=== PATIENT | female | born 1940 | race Caucasian/White ===

== ENCOUNTER 2023-05-21 13:49 | Emergency (ER) | payer OTHER, SELFPAY ==
--- NOTE | ~2023-05-21 | CT_ITS ---
EXAMINATION: CT ABDOMEN AND PELVIS WITHOUT CONTRAST CLINICAL INFORMATION: Flank pain and hematuria COMPARISON: CT abdomen pelvis 10/23/2012-report only TECHNIQUE: Multidetector volumetric imaging was performed from the superior aspect of the liver through the pubic symphysis. Sagittal and coronal reformatted images were obtained on the technologist's workstation. This CT examination was performed using dose optimization techniques as appropriate, variously including the following: *Automated exposure control *Adjustment of mA and/or kV according to patient size (this includes techniques or standardized protocols for targeted exams where dose is matched to indication/reason for exam; i.e. extremities or head) *Use of iterative reconstruction technique DLP: 330 mGy-cm FINDINGS: LUNG BASES: There is mild elevation of the left hemidiaphragm with a small Bochdalek hernia. Bibasilar atelectasis is present. No pleural effusions, consolidations or suspicious lung masses. A bipolar pacemaker is present. Heart is enlarged. LIVER, GALLBLADDER, AND BILIARY TREE: The liver is enlarged measuring 20.5 cm in greatest length. Attenuation is normal. No focal hepatic lesion or biliary ductal dilatation is present. The gallbladder is unremarkable with no evidence of radiopaque gallstones, gallbladder wall thickening, or obvious pericholecystic inflammatory changes. PANCREAS: Not optimally assessed because of lack of IV contrast. There are some calcifications in the region of the head of the pancreas which are probably secondary to old pancreatitis. SPLEEN: Unremarkable. ADRENAL GLANDS: Unremarkable. KIDNEYS AND URETERS: The right kidney is mildly atrophic compared to the left. 2 stones are present in right lower pole calyx the largest measuring 4 mm. No right-sided hydronephrosis is present. Left side benign Bosniak class I and class II renal cysts are noted which require no additional imaging or follow-up. No suspicious solid renal masses are seen. BLADDER: There is moderate symmetric bladder wall thickening. GASTROINTESTINAL TRACT: The small and large bowel are unremarkable aside from the presence of colonic diverticula without diverticulitis. The appendix is unremarkable. ABDOMINAL WALL: No significant hernia is appreciated. LYMPH NODES: Normal. VASCULAR: There is an aortobiiliac stent graft. Patency cannot be established as the study was without IV contrast. Severe atherosclerotic disease is present on the left with presumed external iliac occlusion and SFA occlusion. PELVIC VISCERA: Unremarkable. OSSEOUS STRUCTURES: There is scoliosis present with mild degenerative changes in the spine. CT/CT abdomen pelvis wo IV con IMPRESSION: 1. The right kidney is mildly atrophic and there are nonobstructing calculi present.. 2. 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 Fleischner guidelines were followed.
[2023-05-21 13:54] VITALS: BP 172/70; BP 180/92; PULSE 60; RESP 16; TEMP 37.1; O2SAT 100; O2SAT 93; BMI 18.2
--- NOTE | 2023-05-21 13:54 | ED.GENADULT ---
HPI - General Adult General Chief complaint: Urogenital-Female Stated complaint: FLANK PAIN DIFFICULTY URINATING Time Seen by Provider: 05/21/23 16:32 Source: patient Mode of arrival: EMS Limitations: no limitations History of Present Illness HPI narrative: 83 y/o female with history of HTN presents today for the evaluation of right flank pain for 4 days and difficulty urinating for 2 days with bloody discharge this morning. She reports that she recently fell outside on her lawn on , denies dizziness or syncope, no head strike or loss of consciousness. She fell on her right side and was unable to stand up so she crawled to her neighbors' houses and knocked until someone answered. R flank pain has been worsening and shoots down her bilateral lower extremities. Pain migrates to her buttocks, feels within her rectum. She reports difficulty urinating and passing bowel movements for two days. States that it is hard to pass, last urinated at 11am today. This morning when she woke up, her underwear was covered in blood, she is unable to identify if the blood is from urethra, vagina, or rectum. Call her primary care this morning, who instructed her to go to the ER. MD complaint: flank pain, difficultty urinating Onset (ago): day(s) Radiation: extremity (bilateral lower extremities) and flank Severity: moderate Severity scale (1-10): 4 Quality: aching Pain Consistency: intermittent Relieving factors: rest Exacerbating factors: movement Associated symptoms: denies other symptoms Related Data Previous Rx's ?Medication ?Instructions ?Recorded amlodipine 5 mg tablet (Norvasc) 5 mg PO DAILY #30 tabs 05/21/23 cefuroxime axetil 500 mg tablet 500 mg PO BID 10 days #20 tabs 05/21/23 Allergies Allergy/AdvReac Type Severity Reaction Status Date / Time No Known Allergies Allergy Verified 05/21/23 14:01 Review of Systems Review of Systems: Yes all other systems are reviewed and are negative PMFSH Social History Social History Smoked in Last 30 Days: Yes Use of substances other than those prescribed or required for medical reasons: No Advance Directives: No Advance Directives Information Provided: No Physical Exam ED Vital Signs: Vital Signs - 24 hr 05/21/23 13:54 05/21/23 15:21 Temperature 98.7 F Pulse Rate 60 62 Respiratory Rate 16 14 Blood Pressure 172/70 H 205/69 H Pulse Oximetry 93 93 Oxygen Delivery Method Room Air Room Air BMI result Body Mass Index 18.2 Appearance: Alert. Oriented X3. No acute distress. Head: normocephalic, atraumatic. Eyes: Pupils equal, round and reactive to light. ENT: Pharynx normal. No tonsillar swelling or exudate. Neck: Normal inspection. Neck supple. CVS: Normal heart rate and rhythm. Pulses normal. Respiratory: Coarse, wet cough. Coarse rhonchi auscultated throughout Abdomen: Soft and nontender. : CVA tenderness on right flank Rectal: small 1cm external hemorrhoid noted at 6pm. Larger internal hemorrhoid noted at 1pm Skin: Skin warm and dry. Normal skin color. Normal skin turgor. No rashes. Dried blood noted on right lower extremity. Extremities: No lower extremity edema. No joint swelling. Neuro/psych: Oriented X 3. Nonfocal Course Reevaluation(s) Reevaluation #1: CT/CT abdomen pelvis wo IV con IMPRESSION: 1. The right kidney is mildly atrophic and there are nonobstructing calculi present.. 2. 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 Reviewed these incidental findings with patient, consulted with vascular Dr. Alvarez who recommends outpatient follow-up with her vascular doctor, she is currently anticoagulated on Pradaxa. On exam does not have evidence of acute ischemic limb; she endorses no pain, paralysis, paresthesias, on exam has no pallor or absence of pulses. Her prior vascular surgeon is Dr. Naomi Shepard in [place]. Stable for discharge home Time: 17:45 Medications Administered Discontinued Medications Generic Name Dose Route Start Last Admin Trade Name Freq PRN Reason Stop Dose Admin Amlodipine Besylate 5 mg 05/21/23 15:45 05/21/23 15:59 Amlodipine Besylate 5 Mg Tablet PO 05/21/23 15:46 5 mg ONCE ONE Administration Protocol Ceftriaxone Sodium 1 gm/ 50 mls @ 100 mls/hr 05/21/23 14:57 05/21/23 16:31 Sodium Chloride IV 05/21/23 15:26 Infused ONCE ONE Infusion Medical Decision Making Medical Decision Making [facility] Narrative: 83 y/o female with history of COPD and HTN presents today for evaluation of right flank pain for 4 days and difficulty urinating for 2 days. She reports that when she woke up this morning she had blood between her legs and was unable to tell where it came from. Will obtain UA to evaluate for infection. UA is positive for proteinuria, hematuria, and WBC w/ leukocyte esterase. Will treatment with ceftriaxone. Both internal and external hemorrhoids are noted on digital rectal exam. No visible blood noted on rectal exam. Sent stool guaic for occult blood for further evaluation. Positive for occult blood in stool. Will order CT abdomen/pelvis considering blood in urine and rectum. Concerned for possible lower GI bleed. Patient states that she receives her medications from [email or web address] in [place]. She is unable to recall what medications she takes and what types of medications they are. Called pharmacy and spoke with pharmacist Ronal, who reports that [facility] recently filled metoprolol tartrate 50 mg BID, lorazepam 1gm QD prn, rosouvastatin 20 mg at night, aspirin 81 mg QD. No longer on blood thinners. Pharmacy reports last filled pradaxa on 03/01 for 30 day supply and amlodipine on 04/01 for 30 days. Blood pressure is persistently elevated at 209/65, 204/55. Will order one time dose of amlodipine 5mg and monitor for improvement. Differential Diagnosis Differential Diagnoses: The differential diagnosis associated with the presentation includes lower GI bleed, diverticulitis, UTI, pyelonephritis, lumbar muscular sprain, nephrolithiasis Admission/Observation Consideration of admission/observation: Escalation of care including admission/observation considered Lab Data [facility] Lab Attestation statement: I reviewed the patient's lab results. Urine is positive for RBC, WBC, protein, and leukocyte esterase. Stool is positive for occult blood. 05/21/23 14:38 05/21/23 14:38 Labs: Lab Results 05/21/23 05/21/23 05/21/23 Range/Units 14:10 14:32 14:38 WBC 7.2 (4.8-10.8) X10*3/uL RBC 3.89 L (4.20-5.50) X10*6/uL Hgb 11.4 L (12.0-16.0) g/dl Hct 36.3 L (37.0-47.0) % MCV 93.3 (80.0-98.0) fL MCH 29.3 (27.0-33.0) pg MCHC 31.4 (31.0-35.0) g/dl RDW 14.1 (11.0-16.0) % Plt Count 183 (160-400) X10*3/uL MPV 9.6 (9.4-12.3) fL Immature Gran % (Auto) 0.4 (0.0-0.4) % Neut % (Auto) 85.9 H (45-73) % Lymph % (Auto) 7.6 L (20-40) % Darke % (Auto) 5.9 (2-11) % Eos % (Auto) 0.1 (0-4) % Baso % (Auto) 0.1 (0-2) % Lymph # (Auto) 0.6 L (1.2-4.9) X10*3/uL Darke # (Auto) 0.4 (0.1-1.2) X10*3/uL Eos # (Auto) 0.0 (0.0-0.4) X10*3/uL Baso # (Auto) 0.0 (0.0-0.2) X10*3/uL Abs Immat Gran (auto) 0.03 (0.00-0.03) X10*3/uL Absolute Neuts (auto) 6.2 (2.0-8.3) x10*3/uL Absolute Nucleated RBC 0.000 (0.0-0.012) X10*3/uL Nucleated RBC % (auto) 0.0 (0.0-0.2) /100WBC Sodium 138 (135-145) mmol/L Potassium 4.4 (3.3-5.1) mmol/L Chloride 104 (96-108) mmol/L Carbon Dioxide 26 (22-29) mmol/L Anion Gap 12 (12-20) BUN 15 (9-16) mg/dL Creatinine 1.02 (0.5-1.4) mg/dL Estim Creat Clear Calc 34.1 Estimated GFR 52 Random Glucose 102 (60-115) mg/dL Calcium 9.4 (8.4-10.2) mg/dL Magnesium 2.1 (1.6-2.6) mg/dL Total Bilirubin 0.5 (0.0-1.0) mg/dL Direct Bilirubin 0.2 (0.0-0.5) mg/dL AST 20 (5-31) U/L ALT 11 (0-31) U/L Alkaline Phosphatase 87 (39-117) U/L Total Protein 6.8 (6.5-8.0) g/dL Albumin 3.5 (3.5-5.0) g/dL Urine Color RED Urine Appearance Turbid Urine pH 6.0 (5.0-9.0) Ur Specific [place] 1.025 (1.005-1.025) Urine Protein 300 (3+) H (Neg-Trace) mg/dL Urine Glucose (UA) Negative (Negative) mg/dL Urine Ketones Trace (Negative) mg/dL Urine Blood Large (3+) H (Negative) Urine Nitrite Negative (Negative) Ur Leukocyte Esterase Small (1+) H (Negative) Urine RBC >20 H (0-2) /HPF Urine WBC >50 H (0-5) /HPF Ur Squamous Epith Cells 0-2 (0-2) /HPF Urine Bacteria 1+ (None Seen) Hyaline Casts 0-2 (0-2) /LPF Stool Occult Blood POSITIVE (NEGATIVE) Independent Interpretation I performed an independent interpretation of an: CT Scan Radiology Impression Discussion of test interpretation with radiology: I have reviewed the radiologist's reading. Independent Historian Clinical information obtained from an independent historian. History obtained from or confirmed by: EMS Prescription Management I considered prescription management with: Pain Medication and Antibiotic Chronic Conditions Patient?s care impacted by: Hypertension Social Determinants Patient?s care significantly limited by Social Determinants of Health including: Other Social Determinant of Health Critical Care Time Critical Care Time Critical Care Time: Yes Total Critical Care Time: 42 Attestation: I have personally provided critical care time exclusive of time spent on separately billable procedures. Time includes review of lab data, radiology results, bedside re-evaluations and monitoring for potential decompensation. Intervention performed as documented. Discharge Plan Discharge Clinical Impression: Urinary tract infection Qualifiers: Urinary tract infection type: acute cystitis Hematuria presence: with hematuria Qualified Code(s): N30.01 - Acute cystitis with hematuria Patient Disposition: Home, Self-Care Instructions: Urinary Tract Infection in Older Adults (ED) Additional Instructions: Your urine test today showed infection. Your given 1st dose of IV antibiotics today in the emergency department. You are being sent home with oral antibiotics, next dose is due tomorrow morning. Complete the entire course and do not miss any doses. Drink plenty of fluids. If you develop new or worsening symptoms call 911 or come back to the ER for further evaluation. There was an incidental finding on your CT scans a concerning for possible blockages in arteries of your left leg; your left external iliac artery in your left superficial femoral artery. It is important that you continue taking your medications including her Pradaxa as prescribed. If you develop symptoms that include but are not limited to left leg pain, discoloration of the skin, numbness/tingling, cold sensation, inability to walk on the leg then you should be re-evaluated. You may follow-up in regards to this with your previous vascular surgeon; Dy. Naomi Shepard [address] [place] [address] [address] [place] Prescriptions: New cefuroxime axetil 500 mg tablet 500 mg PO BID 10 Days Qty: 20 0RF amlodipine [Norvasc] 5 mg tablet 5 mg PO DAILY Qty: 30 0RF Referrals: [facility] [Provider Group] [facility] [Provider Group] [facility] [Provider Group] Print Language: Nepali
[2023-05-21 14:28] LABS: Appearance Urine Turbid; Color Urine RED; Glucose Urine UA Negative (Negative); Leukocyte Esterase Urine Small (1+) (Negative); Nitrite Urine Negative (Negative); Specific Gravity - Urine 1.025 (1.005-1.025); UMIC TRIGGER UACC YES; Urine Blood Large (3+) (Negative); Urine Ketones Trace mg/dL (Negative); Urine Protein 300 (3+) mg/dL (Neg-Trace)
[2023-05-21 14:38] LABS: OBS Int Ctl Valid YES; OBS1 POSITIVE (NEGATIVE)
[2023-05-21 14:42] LABS: MANUAL DIFF FLAG NO
[2023-05-21 14:44] LABS: Bacteria Urine 1+ (None Seen); Hyaline Casts Urine 0-2 /LPF (0-2); RBC Urine >20 /HPF (0-2); Squamous Epithelial Cell Urine 0-2 /HPF (0-2); UACC Culture Trigger YES; WBC Urine >50 /HPF (0-5)
[2023-05-21 14:45] LABS: Basophils Percent Auto 0.1 % (0-2); Eosinophils Percent Auto 0.1 % (0-4); Hematocrit 36.3 % (37.0-47.0); Hemoglobin 11.4 g/dl (12.0-16.0); Imm Gran Abs Auto 0.03 X10*3/uL (0.00-0.03); Imm Gran Pct Auto 0.4 % (0.0-0.4); Lymphocytes Absolute Auto 0.6 X10*3/uL (1.2-4.9); Lymphocytes Percent Auto 7.6 % (20-40); Mean Corpuscular HGB Conc 31.4 g/dl (31.0-35.0); Mean Corpuscular Hemoglobin 29.3 pg (27.0-33.0); Mean Corpuscular Volume 93.3 fL (80.0-98.0); Mean Platelet Volume 9.6 fL (9.4-12.3); Monocytes Absolute Auto 0.4 X10*3/uL (0.1-1.2); Monocytes Percent Auto 5.9 % (2-11); Neutrophils Absolute Auto 6.2 x10*3/uL (2.0-8.3); Neutrophils Percent Auto 85.9 % (45-73); Platelet Count 183 X10*3/uL (160-400); Red Blood Count 3.89 X10*6/uL (4.20-5.50); Red Cell Distribution Width 14.1 % (11.0-16.0); White Blood Count 7.2 X10*3/uL (4.8-10.8)
[2023-05-21 15:06] LABS: Alanine Aminotransferase 11 U/L (0-31); Albumin Level 3.5 g/dL (3.5-5.0); Alkaline Phosphatase 87 U/L (39-117); Anion Gap 12 (12-20); Aspartate Amino Transferase 20 U/L (5-31); Bilirubin Direct 0.2 mg/dL (0.0-0.5); Bilirubin Total 0.5 mg/dL (0.0-1.0); Blood Urea Nitrogen 15 mg/dL (9-16); Calcium 9.4 mg/dL (8.4-10.2); Carbon Dioxide 26 mmol/L (22-29); Chloride 104 mmol/L (96-108); Creatinine Clr Calc Pharmacy 34.1; Estimated Glomerular Filt Rate 52; Glucose Random 102 mg/dL (60-115); Magnesium 2.1 mg/dL (1.6-2.6); Potassium 4.4 mmol/L (3.3-5.1); Sodium 138 mmol/L (135-145); Total Protein 6.8 g/dL (6.5-8.0)
[2023-05-21 15:21] VITALS: BP 205/69; PULSE 62; RESP 14; O2SAT 93
[2023-05-21] MEDS: cefTRIAXone sodium 1 GM in 0.9 % Sodium Chloride 50 ML IV (15:39)
[2023-05-21] MEDS: amLODIPine Besylate 5 MG TABLET PO (15:59)
[2023-05-21 17:44] VITALS: BP 151/71; PULSE 63; O2SAT 92
--- NOTE | 2023-05-21 18:17 | PC.NURSE ---
spoke with pt friend, Yandy [phone] [address] she will come tow picker pt in about 30-40 MIN
[2023-05-21 18:43] VITALS: BP 188/99; PULSE 60; RESP 16; TEMP 36.7; O2SAT 92
== END 2023-05-21 18:54 | disposition home or self-care (01) ==
PROVIDERS: Physician Assistant; Emergency Provider Emergency Medicine
DX: N30.01 Acute cystitis with hematuria (principal); K64.8 Other hemorrhoids; K64.4 Residual hemorrhoidal skin tags; I10 Essential (primary) hypertension; J44.9 Chronic obstructive pulmonary disease, unspecified; Z79.82 Long term (current) use of aspirin; Z79.899 Other long term (current) drug therapy
CPT/HCPCS: 36415; 74176; 80048; 80076; 81001; 82272; 83735; 85025; 87086; 87088; 87186; 96365; 99284; J0696

== ENCOUNTER 2023-07-03 10:05 | Inpatient (IN) | payer MEDICARE, SELFPAY ==
[2023-07-03] VITALS (12 sets, daily range): BP systolic 105–201; BP diastolic 50–82; PULSE 68–97; RESP 15–23; TEMP 36.5–37.1; O2SAT 78–97
--- NOTE | ~2023-07-03 | XR_ITS ---
EXAMINATION: XR CHEST CLINICAL INFORMATION: ET tube and orogastric tube placement COMPARISON: CT chest 07/04/2023 at 2:19 AM TECHNIQUE: Frontal view of the chest was obtained. FINDINGS: NG tube has its tip in the stomach. Endotracheal 2 isn't the difficult to see but is probably well above the mindi. Left chest wall dual-lead pacemaker present with tip in good position. Heart size within normal limits. Small left effusion. Increased bronchial thickening is seen left basilar atelectasis is present. XR/XR chest 1V IMPRESSION: Endotracheal tube is difficult to see but is probably well above the mindi. A repeat chest radiograph slightly obliqued may be of value. NG tube has its tip in the stomach.
--- NOTE | ~2023-07-03 | XR_ITS ---
EXAMINATION: XR CHEST CLINICAL INFORMATION: Ongoing cough COMPARISON: None available. TECHNIQUE: Frontal view of the chest was obtained. FINDINGS: The lungs do appear to be hyperaerated with mild bilateral fibrotic changes noted but no acute consolidations. Heart and pulmonary vessels are normal. No congestive change. A left-sided pacer noted with distal tips directed towards right atrium and right ventricular apex. There is degenerative change in both shoulder joints. XR/XR chest 1V IMPRESSION: Chronic changes noted. No active disease.
--- NOTE | ~2023-07-03 | CT_ITS ---
EXAMINATION: CT ANGIOGRAM OF THE CHEST WITH AND WITHOUT CONTRAST (CT PULMONARY ANGIOGRAM FOR PE) CLINICAL INFORMATION: Reason for Exam Acute hypoxia COMPARISON: None available. TECHNIQUE: Prior to contrast administration, noncontrast localization images were obtained. Subsequently, multidetector volumetric imaging was performed from the thoracic inlet to below the diaphragms following the administration of 65 mL Omnipaque 350 intravenous contrast. No contrast reaction reported Sagittal, coronal, and MIP oblique sagittal reformatted images were obtained on the CT workstation, uploaded to PACS, and reviewed. This CT examination was performed using dose optimization techniques as appropriate, variously including the following: *Automated exposure control *Adjustment of mA and/or kV according to patient size (this includes techniques or standardized protocols for targeted exams where dose is matched to indication/reason for exam; i.e. extremities or head) *Use of iterative reconstruction technique Total exam dose-length product 247 mGy-cm FINDINGS: QUALITY OF STUDY/CONTRAST BOLUS: Satisfactory. PULMONARY ARTERIES: No filling defects are seen in the main, lobar, or segmental pulmonary arteries to suggest the presence of pulmonary emboli. Assessment of the subsegmental vasculature is limited in some regions due to respiratory motion artifact. THORACIC AORTA: Ascending aorta measures approximately 3.8 cm in diameter. There is atherosclerotic calcification along the aorta. LUNG: Endotracheal tube tip approximately 2 cm above the mindi. Bronchial wall thickening is noted bilaterally. There is biapical scarring. Moderate to severe upper lobe predominant emphysema. There is peribronchial opacity in the medial left lower lobe. Dependent atelectasis in the bilateral lower lobes. Left upper lobe nodule measures approximately 5 x 3 mm on image 202/571. There is a region of somewhat clustered ill-defined nodularity in the right upper lobe such as seen on image 217/571, overall more suggestive of a mild infectious/inflammatory etiology. PLEURA: No pneumothorax. Trace left pleural effusion. MEDIASTINUM: Peripherally calcified right thyroid nodule. No appreciable mediastinal lymphadenopathy. Cardiomegaly without pericardial effusion. CORONARY ARTERY CALCIFICATION: Present CHEST WALL/AXILLA: No lymphadenopathy is seen. Left-sided pacemaker is present with leads extending to the right atrium and right ventricle. OSSEOUS STRUCTURES: Multilevel endplate osteophytes in the spine. UPPER ABDOMEN: Partially visualized aortic stent graft. No reflux of contrast into the hepatic veins to suggest elevated right heart pressures. CT/CT angio chest PE protocol IMPRESSION: 1. No pulmonary embolus identified. 2. Peribronchial opacity in the medial left lower lobe, suspicious for pneumonia in the proper clinical setting. 3. Moderate to severe upper lobe predominant emphysema. 4. Bronchial wall thickening, which may reflect acute or chronic bronchitis. 5. Trace left pleural effusion. 6. Left upper lobe 5 mm lung nodule, nonspecific. See follow-up recommendations below. 7. Region of somewhat clustered of ill-defined nodularity in the in the right upper lobe such overall more suggestive of a mild infectious/inflammatory etiology. According to the UPDATED 2017 Fleischner Society recommendations, the advised follow-up imaging for solid nodules < 6 mm is: LOW RISK PATIENT: No routine follow-up. HIGH RISK PATIENT: Optional CT at 12 months. VTE: negative
--- NOTE | 2023-07-03 10:20 | ECG_ITS ---
Test Reason : SOB Blood Pressure : / mmHG Vent. Rate : 077 BPM Atrial Rate : 000 BPM P-R Int : 000 ms QRS Dur : 084 ms QT Int : 382 ms P-R-T Axes : 000 030 070 degrees QTc Int : 432 ms Atrial fibrillation with a competing junctional pacemaker Septal infarct , age undetermined Abnormal ECG No previous ECGs available Referred By: Demetria Bray Electronically Signed By:ESTEFANIA LOPEZ
--- NOTE | 2023-07-03 10:24 | ED_ITS ---
HPI - SOB/Dyspnea General Chief Complaint: Dyspnea Stated Complaint: LOW O2 SATS, 96% ON 4L,HX COPD PER EMS Time Seen by Provider: 07/03/23 10:07 Source: patient, EMS and old records reviewed Mode of arrival: EMS Limitations: other (poor historian) History of Present Illness ED Provider: ZORA HPI Narrative: 83 yo female with PMH of HTN, COPD not on home O2 still smoking, takes pradaxa but I am not sure why - records from [facility] requested she notes she was at [facility] and sent to rehab just came home 2 weeks ago after R hip fracture. 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 She notes she has a cough and sputum production x 2 days it is white in nature. VNA came today and notes sats in the 80s. The patient denies falls. She notes poor appetite. She reports when she was in rehab she had pneumonia but isn't sure of antibiotic. In our room on arrival to ED she was 78% on RA. review of [facility] records - admit 06/06 to 06/18 R subcapital femur fx s/p ORIF complicated recovery hypoxia and pneumonia was treated with augmentin and doxy. has hx of afib that is why she is on pradaxa. It appears her memory issues are not new. MD elicited complaint: shortness of breath Pertinent past history: COPD Onset (ago): day(s) (2) Context: recent illness Timing: intermittent Severity: mild Exacerbating factors: coughing Relieving factors: rest Known history of: COPD Associated symptoms: cough and sputum production Treatment prior to arrival: oxygen Related Data Home Medications ?Medication ?Instructions ?Recorded ?Confirmed aspirin 81 mg chewable tablet 1 tab PO DAILY 07/03/23 dabigatran etexilate 150 mg capsule 150 mg PO BID 07/03/23 lorazepam 1 mg tablet 1 mg PO DAILY PRN Anxiety 07/03/23 metoprolol tartrate 50 mg tablet 50 mg PO BID 07/03/23 rosuvastatin 20 mg tablet 20 mg PO DAILY 07/03/23 Previous Rx's ?Medication ?Instructions ?Recorded amlodipine 5 mg tablet (Norvasc) 5 mg PO DAILY #30 tabs 05/21/23 Allergies Allergy/AdvReac Type Severity Reaction Status Date / Time No Known Allergies Allergy Verified 07/03/23 10:26 Review of Systems 2 Review of Systems: Constitutional : No Fever, No Chills ENT/Mouth : No sore throat, No Rhinorrhea, No Swallowing Difficulty Eyes: No Eye Pain, No Swelling, No Redness Cardiovascular : No Chest Pain, positive SOB, No Orthopnea, positive Edema Respiratory : pos Cough, pos Sputum, No Wheezing, positive dyspnea Gastrointestinal : No Nausea, No Vomiting, No Diarrhea, No abdominal Pain, No Hematochezia, No Melena Genitourinary : No Dysuria, No Urinary Frequency, No Hematuria Musculoskeletal : No joint pain, No Myalgias Skin : No Skin Lesions, No rash Neuro : pos Weakness, No Numbness, No Dizziness, No Headache Psych : No Anxiety/Panic, No Depression All other systems reviewed and are negative [facility] Past Medical History Attestation statement: The following information was validated with the patient. Source: old records reviewed Medical History Femur fracture Afib Chronic anticoagulation HTN (hypertension) COPD (chronic obstructive pulmonary disease) Surgical History S/P ORIF (open reduction internal fixation) fracture Social History Social History Alcohol intake: current Alcohol intake frequency: 0-2 drinks per day Patient Tobacco Use Status: Current everyday Tobacco user Smoked in Last 30 Days: Yes Use of substances other than those prescribed or required for medical reasons: No Advance Directives: Yes Advance Directives Information Provided: Yes Advance Directives on File: No Do you have a plan to hurt others: No Plan Physical Exam 2 Vital Signs: Vital Signs: Last Vital Signs Temp 98.3 F 07/03/23 13:24 Pulse 92 07/03/23 13:24 Resp 19 07/03/23 13:24 BP 169/69 H 07/03/23 13:24 Pulse Ox 97 07/03/23 13:24 O2 Del Method Nasal Cannula 07/03/23 13:24 O2 Flow Rate 4 07/03/23 13:24 Oxygen Flow Rate 4 07/03/23 10:22 BMI result Body Mass Index 20.0 Appearance: Alert. Oriented X2 (confused on time). No acute distress. Eyes: Pupils equal, round and reactive to light. ENT: Pharynx normal. Neck: Normal inspection. Neck supple. CVS: irregular heart rate and rhythm. Pulses normal. Respiratory: No respiratory distress. Breath sounds very diminished with coarse cough Abdomen: Soft and nontender. Skin: Skin warm and dry. Normal skin color. Normal skin turgor. Extremities: No lower extremity edema. R upper lateral thigh well healed incision steri strips in place Neuro: Oriented X 2. No motor deficit. No sensory deficit. Medications Administered Discontinued Medications Generic Name Dose Route Start Last Admin Trade Name Freq PRN Reason Stop Dose Admin Albuterol Sulfate 2.5 mg/ 0 mg 07/03/23 10:27 07/03/23 10:36 Albuterol/Ipratropium 3 ml INHALE 07/03/23 10:28 1 dose ONCE ONE Administration Furosemide 40 mg 07/03/23 11:17 07/03/23 11:28 Furosemide 40 Mg/4 Ml Vial IVPUSH 07/03/23 11:18 40 mg STAT STA Administration Protocol Cefepime HCl 1 gm/ Sodium 50 mls @ 100 mls/hr 07/03/23 10:20 07/03/23 10:49 Chloride IV 07/03/23 10:49 100 mls/hr ONCE ONE Administration Methylprednisolone Sodium Succinate 60 mg 07/03/23 10:20 07/03/23 10:49 Methylprednisolone Sod Succ 125 Mg/2 Ml Vial IVPUSH 07/03/23 10:21 60 mg ONCE ONE Administration Medical Decision Making Medical Decision Making [facility] Narrative: 83 yo female with PMH of HTN, COPD not on home O2 still smoking, afib on pradaxa, cognitive impairment with hypoxia, cough, weakness s/p recent treatment for pneumonia at this time currently stable on O2 will need labs, cultures, IV steroids, empiric cefepime, CXR - anticipate admission. I have requested records from [facility]. Patient was actually discharged from home not to rehab on 06/17 Differential Diagnosis Differential Diagnoses: The differential diagnosis associated with the presentation includes COPD, pneumonia Admission/Observation Consideration of admission/observation: Escalation of care including admission/observation considered will need admission given hypoxia has been on pradaxa so VTE seems unlikely has coarse upper respiratory sounds and URI like illness Consult Healthcare Provider Management of the patient was discussed with: Hospitalist (will admit) Lab Data [facility] Lab Attestation statement: I reviewed the patient's lab results. 07/03/23 10:41 07/03/23 10:41 Labs: Lab Results 07/03/23 07/03/23 07/03/23 Range/Units 10:41 10:42 10:48 WBC 4.2 L (4.8-10.8) X10*3/uL RBC 3.42 L (4.20-5.50) X10*6/uL Hgb 10.0 L (12.0-16.0) g/dl Hct 32.2 L (37.0-47.0) % MCV 94.2 (80.0-98.0) fL MCH 29.2 (27.0-33.0) pg MCHC 31.1 (31.0-35.0) g/dl RDW 16.4 H (11.0-16.0) % Plt Count 420 H D (160-400) X10*3/uL MPV 8.7 L (9.4-12.3) fL Immature Gran % (Auto) 1.0 H (0.0-0.4) % Neut % (Auto) 78.2 H (45-73) % Lymph % (Auto) 8.4 L (20-40) % [place] % (Auto) 12.2 H (2-11) % Eos % (Auto) 0.2 (0-4) % Baso % (Auto) 0.0 (0-2) % Lymph # (Auto) 0.4 L (1.2-4.9) X10*3/uL [place] # (Auto) 0.5 (0.1-1.2) X10*3/uL Eos # (Auto) 0.0 (0.0-0.4) X10*3/uL Baso # (Auto) 0.0 (0.0-0.2) X10*3/uL Abs Immat Gran (auto) 0.04 H (0.00-0.03) X10*3/uL Absolute Neuts (auto) 3.3 (2.0-8.3) x10*3/uL Absolute Nucleated RBC 0.000 (0.0-0.012) X10*3/uL Nucleated RBC % (auto) 0.0 (0.0-0.2) /100WBC VBG pH (7.32-7.43) VBG pCO2 mmHg VBG pO2 mmHg VBG HCO3 (22-26) mmol/L VBG O2 Saturation % VBG Base Excess mmol/L Sodium 135 (135-145) mmol/L Potassium 4.3 (3.3-5.1) mmol/L Chloride 102 (96-108) mmol/L Carbon Dioxide 24 (22-29) mmol/L Anion Gap 13 (12-20) BUN 15 (9-16) mg/dL Creatinine 0.88 (0.5-1.4) mg/dL Estim Creat Clear Calc 43.5 Estimated GFR > 60 Random Glucose 109 (60-115) mg/dL Lactic Acid (0.5-2.0) mmol/L Calcium 8.9 (8.4-10.2) mg/dL Magnesium 2.0 (1.6-2.6) mg/dL Total Bilirubin 0.4 (0.0-1.0) mg/dL Direct Bilirubin 0.2 (0.0-0.5) mg/dL AST 19 (5-31) U/L ALT 9 (0-31) U/L Alkaline Phosphatase 100 (39-117) U/L Troponin I High Sens 29.1 H (<3.5-17.0) ng/L B-Natriuretic Peptide 756 H (<100) pg/mL Total Protein 6.8 (6.5-8.0) g/dL Albumin 3.4 L (3.5-5.0) g/dL Lipase 25 (8-78) U/L Procalcitonin 0.04 ng/mL Urine Color Yellow Urine Appearance Cloudy Urine pH 5.5 (5.0-9.0) Ur Specific [place] 1.015 (1.005-1.025) Urine Protein Trace (Neg-Trace) mg/dL Urine Glucose (UA) Negative (Negative) mg/dL Urine Ketones Negative (Negative) mg/dL Urine Blood Trace H (Negative) Urine Nitrite Positive H (Negative) Ur Leukocyte Esterase Moderate (2+) H (Negative) Urine RBC 0-2 (0-2) /HPF Urine WBC 11-20 (0-5) /HPF Ur Squamous Epith Cells 0-2 (0-2) /HPF Urine Bacteria 4+ (None Seen) Hyaline Casts 0-2 (0-2) /LPF Influenza Type A (PCR) NEGATIVE (Negative) Influenza Type B (PCR) NEGATIVE (Negative) RSV RNA Qual (PCR) NEGATIVE (Negative) SARS-CoV-2 RNA (RT-PCR) NEGATIVE (Negative) 07/03/23 07/03/23 07/03/23 Range/Units 10:55 11:03 12:29 WBC (4.8-10.8) X10*3/uL RBC (4.20-5.50) X10*6/uL Hgb (12.0-16.0) g/dl Hct (37.0-47.0) % MCV (80.0-98.0) fL MCH (27.0-33.0) pg MCHC (31.0-35.0) g/dl RDW (11.0-16.0) % Plt Count (160-400) X10*3/uL MPV (9.4-12.3) fL Immature Gran % (Auto) (0.0-0.4) % Neut % (Auto) (45-73) % Lymph % (Auto) (20-40) % [place] % (Auto) (2-11) % Eos % (Auto) (0-4) % Baso % (Auto) (0-2) % Lymph # (Auto) (1.2-4.9) X10*3/uL [place] # (Auto) (0.1-1.2) X10*3/uL Eos # (Auto) (0.0-0.4) X10*3/uL Baso # (Auto) (0.0-0.2) X10*3/uL Abs Immat Gran (auto) (0.00-0.03) X10*3/uL Absolute Neuts (auto) (2.0-8.3) x10*3/uL Absolute Nucleated RBC (0.0-0.012) X10*3/uL Nucleated RBC % (auto) (0.0-0.2) /100WBC VBG pH 7.37 (7.32-7.43) VBG pCO2 44 mmHg VBG pO2 53 mmHg VBG HCO3 26 (22-26) mmol/L VBG O2 Saturation 84.0 % VBG Base Excess 0.6 mmol/L Sodium (135-145) mmol/L Potassium (3.3-5.1) mmol/L Chloride (96-108) mmol/L Carbon Dioxide (22-29) mmol/L Anion Gap (12-20) BUN (9-16) mg/dL Creatinine (0.5-1.4) mg/dL Estim Creat Clear Calc Estimated GFR Random Glucose (60-115) mg/dL Lactic Acid 1.1 (0.5-2.0) mmol/L Calcium (8.4-10.2) mg/dL Magnesium (1.6-2.6) mg/dL Total Bilirubin (0.0-1.0) mg/dL Direct Bilirubin (0.0-0.5) mg/dL AST (5-31) U/L ALT (0-31) U/L Alkaline Phosphatase (39-117) U/L Troponin I High Sens 25.9 H (<3.5-17.0) ng/L B-Natriuretic Peptide (<100) pg/mL Total Protein (6.5-8.0) g/dL Albumin (3.5-5.0) g/dL Lipase (8-78) U/L Procalcitonin ng/mL Urine Color Urine Appearance Urine pH (5.0-9.0) Ur Specific [place] (1.005-1.025) Urine Protein (Neg-Trace) mg/dL Urine Glucose (UA) (Negative) mg/dL Urine Ketones (Negative) mg/dL Urine Blood (Negative) Urine Nitrite (Negative) Ur Leukocyte Esterase (Negative) Urine RBC (0-2) /HPF Urine WBC (0-5) /HPF Ur Squamous Epith Cells (0-2) /HPF Urine Bacteria (None Seen) Hyaline Casts (0-2) /LPF Influenza Type A (PCR) (Negative) Influenza Type B (PCR) (Negative) RSV RNA Qual (PCR) (Negative) SARS-CoV-2 RNA (RT-PCR) (Negative) Independent Interpretation I performed an independent interpretation of an: EKG and Plain X-Ray (no pneumonia) Interpretation: Rate: 77 Rhythm: NSR with frequent PACS [place]: normal normal p waves. normal [place] Normal QRS complex. ST T wave : no PACs, inverted t waves aVL qTC: 432 prior studies: The study has been interpreted contemporaneously by me. . Radiology Impression Discussion of test interpretation with radiology: I have reviewed the radiologist's reading. Independent Historian Clinical information obtained from an independent historian. History obtained from or confirmed by: EMS External Record Review External record reviewed: Outpatient record Critical Care Time Critical Care Time Critical Care Time: Yes Total Critical Care Time: 45 Attestation: review of outside records, intervention for hypoxia, IV lasix, IV antibiotics, repeat labs for troponin trend, admission I attest to this time spent taking care of the patient Discharge Plan Discharge Clinical Impression: Acute exacerbation of chronic obstructive airways disease, Acute UTI, Hypoxia Patient Disposition: Admitted As Inpatient
[2023-07-03] MEDS: Albuterol Sulfate 2.5 MG, Albuterol/Iprat 2.5/0.5MG 3 ML 3 ML INHALE (10:36)
[2023-07-03] MEDS: cefEPime HCl 1 GM in 0.9 % Sodium Chloride 50 ML IV (10:49)
[2023-07-03] MEDS: methylPREDNISolone Sod Succ 125 MG/2 ML VIAL 60 MG IVPUSH (10:49)
[2023-07-03 10:53] LABS: MANUAL DIFF FLAG NO
[2023-07-03 10:56] LABS: Eosinophils Percent Auto 0.2 % (0-4); Hematocrit 32.2 % (37.0-47.0); Imm Gran Abs Auto 0.04 X10*3/uL (0.00-0.03); Lymphocytes Absolute Auto 0.4 X10*3/uL (1.2-4.9); Lymphocytes Percent Auto 8.4 % (20-40); Mean Corpuscular HGB Conc 31.1 g/dl (31.0-35.0); Mean Corpuscular Hemoglobin 29.2 pg (27.0-33.0); Mean Corpuscular Volume 94.2 fL (80.0-98.0); Mean Platelet Volume 8.7 fL (9.4-12.3); Monocytes Absolute Auto 0.5 X10*3/uL (0.1-1.2); Monocytes Percent Auto 12.2 % (2-11); Neutrophils Absolute Auto 3.3 x10*3/uL (2.0-8.3); Neutrophils Percent Auto 78.2 % (45-73); Red Blood Count 3.42 X10*6/uL (4.20-5.50); Red Cell Distribution Width 16.4 % (11.0-16.0); White Blood Count 4.2 X10*3/uL (4.8-10.8)
[2023-07-03 11:01] LABS: Appearance Urine Cloudy; Color Urine Yellow; Glucose Urine UA Negative (Negative); Leukocyte Esterase Urine Moderate (2+) (Negative); Nitrite Urine Positive (Negative); PH 5.5 (5.0-9.0); Specific Gravity - Urine 1.015 (1.005-1.025); UMIC TRIGGER UACC YES; Urine Blood Trace (Negative); Urine Ketones Negative (Negative); Urine Protein Trace mg/dL (Neg-Trace)
[2023-07-03 11:02] LABS: Venous Blood Gas Refer to POC result
[2023-07-03 11:03] LABS: VBG Base Excess 0.6 mmol/L; VBG HCO3 26 mmol/L (22-26); VBG pCO2 44 mmHg; VBG pH 7.37 (7.32-7.43); VBG pO2 53 mmHg
[2023-07-03 11:05] LABS: Platelet Count 420 X10*3/uL (160-400)
[2023-07-03 11:16] LABS: Alanine Aminotransferase 9 U/L (0-31); Albumin Level 3.4 g/dL (3.5-5.0); Alkaline Phosphatase 100 U/L (39-117); Anion Gap 13 (12-20); Aspartate Amino Transferase 19 U/L (5-31); Bilirubin Direct 0.2 mg/dL (0.0-0.5); Bilirubin Total 0.4 mg/dL (0.0-1.0); Blood Urea Nitrogen 15 mg/dL (9-16); Calcium 8.9 mg/dL (8.4-10.2); Carbon Dioxide 24 mmol/L (22-29); Chloride 102 mmol/L (96-108); Creatinine Clr Calc Pharmacy 43.5; Estimated Glomerular Filt Rate > 60; Glucose Random 109 mg/dL (60-115); Lipase 25 U/L (8-78); Potassium 4.3 mmol/L (3.3-5.1); Sodium 135 mmol/L (135-145); Total Protein 6.8 g/dL (6.5-8.0); Troponin-I High Sensitivity 29.1 ng/L (<3.5-17.0)
[2023-07-03 11:17] LABS: B Type Natriuretic Peptide 756 pg/mL (<100)
[2023-07-03 11:19] LABS: Lactic Acid 1.1 mmol/L (0.5-2.0)
[2023-07-03 11:22] LABS: Bacteria Urine 4+ (None Seen); Hyaline Casts Urine 0-2 /LPF (0-2); RBC Urine 0-2 /HPF (0-2); Squamous Epithelial Cell Urine 0-2 /HPF (0-2); UACC Culture Trigger YES
[2023-07-03] MEDS: Furosemide 40 MG/4 ML VIAL IVPUSH (11:28)
--- NOTE | 2023-07-03 11:35 | PC.NURSE ---
awake and alert. supplemental O2, resp even and unlabored. speaking in fulll clear sentences. abd soft. skin wcd. transferred from EMS stretcher without issue. straight cath for UA. All blood work and cultures sent per orders. Given IV abx, steroids, and IV lasix. Purewick in place.
[2023-07-03 11:37] LABS: Influenza A PCR NEGATIVE (Negative); Influenza B PCR NEGATIVE (Negative); Resp Syncy Virus RNA Qual PCR NEGATIVE (Negative); SARS COV2 PCR INHOUSE NEGATIVE (Negative)
[2023-07-03 11:54] LABS: Procalcitonin 0.04 ng/mL
[2023-07-03 12:55] LABS: Troponin-I High Sensitivity 25.9 ng/L (<3.5-17.0)
--- NOTE | 2023-07-03 14:41 | PM.IMHP ---
History of Present Illness Date of Service: 07/03/23 Attending physician on admission: Neri Calderón Chief Complaint: hypoxia per vna 83-year-old female with history of hypertension, COPD not on home O2, paroxysmal atrial fibrillation anticoagulated with Pradaxa, AAA, recent subcapital fracture of R femur s/p ORIF at [facility] with recent discharge 2 weeks ago from SNF presented to the ED from home due to hypoxia. While admitted patient was found to have pneumonia and was treated with IV abx and completed 5 days doxycycline as well. CTA at the time negative for PE. On DC completed 10 course augmentin. Had VNA at the home today and was found hypoxic in the 80s and was 78% on RA in the ED. Now maintaining oximetry 93% on 4L. Her housekeep has cough but she denies fevers, chills, congestion, ST. abd pain, n/v/d, cough, sob, wheezing, chest pain. She has underlying cognitive impairement and is not the most reliable historian. Wanted to go home but is agreeable to staying now. She was initially tachypneic to 23 on arrival, vitals otherwise stable except for hypoxia. Mildly leukopenic at 4.2. Normocytic anemia 10.0/32.2%. Renal function electrolytes normal. Lactic acid 1.1. Initial troponin 28.1, repeat 25.9. BNP 756 (was as high as 4100 at [facility]). Procalcitonin 0.04. Urinalysis with 2+ leukocytes, positive nitrites, trace blood, 4+ bacteria. In the ED, has received cefepime, DuoNeb, 40 mg Lasix, and 60 mg IV methylprednisolone. Review of Systems Review of Systems: Yes all other systems are reviewed and are negative [facility] Medical History Femur fracture Afib Chronic anticoagulation HTN (hypertension) COPD (chronic obstructive pulmonary disease) Surgical History S/P ORIF (open reduction internal fixation) fracture Social History Alcohol intake: current Alcohol intake frequency: 0-2 drinks per day Patient Tobacco Use Status: Current everyday Tobacco user Smoked in Last 30 Days: Yes Use of substances other than those prescribed or required for medical reasons: No Advance Directives: Yes Advance Directives Information Provided: Yes Advance Directives on File: No Do you have a plan to hurt others: No Plan Meds Allergies Allergy/AdvReac Type Severity Reaction Status Date / Time No Known Allergies Allergy Verified 07/03/23 10:26 Home Medications ?Medication ?Instructions ?Recorded ?Confirmed ?Last Taken ?Type aspirin 81 mg chewable tablet 1 tab PO DAILY 07/03/23 Unknown History dabigatran etexilate 150 mg capsule 150 mg PO BID 07/03/23 Unknown History lorazepam 1 mg tablet 1 mg PO DAILY PRN Anxiety 07/03/23 Unknown History metoprolol tartrate 50 mg tablet 50 mg PO BID 07/03/23 Unknown History rosuvastatin 20 mg tablet 20 mg PO DAILY 07/03/23 Unknown History Physical Exam Vital Signs and Narrative: Vital Signs: Last Vital Signs Temp 98.3 F 07/03/23 13:24 Pulse 92 07/03/23 13:24 Resp 19 07/03/23 13:24 BP 169/69 H 07/03/23 13:24 Pulse Ox 97 07/03/23 13:24 O2 Del Method Nasal Cannula 07/03/23 13:24 O2 Flow Rate 4 07/03/23 13:24 Oxygen Flow Rate 4 07/03/23 10:22 BMI result Body Mass Index 20.0 Constitutional - Awake and Alert, No apparent distress Eyes - PERRLA, EOMI Cardiovascular - S1S2, RRR, No edema Respiratory - Normal lung expansion, Normal respiratory effort, No respiratory distress, CTA bilaterally Gastrointestinal - NT / ND; +BS; No rebound or guarding Extremities - no calf tenderness bilaterally, no swelling Skin - Warm/Dry Neurological - Alert & oriented x3 Psychological - Appropriate affect Results Labs 07/03/23 10:41 07/03/23 10:41 Labs: Laboratory Results - last 24 hr 07/03/23 07/03/23 07/03/23 10:41 10:42 10:48 MCV 94.2 MCH 29.2 MCHC 31.1 RDW 16.4 H Plt Count 420 H D MPV 8.7 L Immature Gran % (Auto) 1.0 H Neut % (Auto) 78.2 H Lymph % (Auto) 8.4 L [place] % (Auto) 12.2 H Eos % (Auto) 0.2 Baso % (Auto) 0.0 Lymph # (Auto) 0.4 L [place] # (Auto) 0.5 Eos # (Auto) 0.0 Baso # (Auto) 0.0 Abs Immat Gran (auto) 0.04 H Absolute Neuts (auto) 3.3 Absolute Nucleated RBC 0.000 Nucleated RBC % (auto) 0.0 VBG pH VBG pCO2 VBG pO2 VBG HCO3 VBG O2 Saturation VBG Base Excess Anion Gap 13 Estim Creat Clear Calc 43.5 Estimated GFR > 60 Random Glucose 109 Lactic Acid Calcium 8.9 Magnesium 2.0 Total Bilirubin 0.4 Direct Bilirubin 0.2 AST 19 ALT 9 Alkaline Phosphatase 100 Troponin I High Sens 29.1 H B-Natriuretic Peptide 756 H Total Protein 6.8 Albumin 3.4 L Lipase 25 Procalcitonin 0.04 Urine Color Yellow Urine Appearance Cloudy Urine pH 5.5 Ur Specific [place] 1.015 Urine Protein Trace Urine Glucose (UA) Negative Urine Ketones Negative Urine Blood Trace H Urine Nitrite Positive H Ur Leukocyte Esterase Moderate (2+) H Urine RBC 0-2 Urine WBC 11-20 Ur Squamous Epith Cells 0-2 Urine Bacteria 4+ Hyaline Casts 0-2 Influenza Type A (PCR) NEGATIVE Influenza Type B (PCR) NEGATIVE RSV RNA Qual (PCR) NEGATIVE SARS-CoV-2 RNA (RT-PCR) NEGATIVE 07/03/23 07/03/23 07/03/23 10:55 11:03 12:29 MCV MCH MCHC RDW Plt Count MPV Immature Gran % (Auto) Neut % (Auto) Lymph % (Auto) [place] % (Auto) Eos % (Auto) Baso % (Auto) Lymph # (Auto) [place] # (Auto) Eos # (Auto) Baso # (Auto) Abs Immat Gran (auto) Absolute Neuts (auto) Absolute Nucleated RBC Nucleated RBC % (auto) VBG pH 7.37 VBG pCO2 44 VBG pO2 53 VBG HCO3 26 VBG O2 Saturation 84.0 VBG Base Excess 0.6 Anion Gap Estim Creat Clear Calc Estimated GFR Random Glucose Lactic Acid 1.1 Calcium Magnesium Total Bilirubin Direct Bilirubin AST ALT Alkaline Phosphatase Troponin I High Sens 25.9 H B-Natriuretic Peptide Total Protein Albumin Lipase Procalcitonin Urine Color Urine Appearance Urine pH Ur Specific [place] Urine Protein Urine Glucose (UA) Urine Ketones Urine Blood Urine Nitrite Ur Leukocyte Esterase Urine RBC Urine WBC Ur Squamous Epith Cells Urine Bacteria Hyaline Casts Influenza Type A (PCR) Influenza Type B (PCR) RSV RNA Qual (PCR) SARS-CoV-2 RNA (RT-PCR) Imaging Radiologist's Impressions: Impressions Chest X-Ray 07/03/23 11:10 IMPRESSION: Chronic changes noted. No active disease. Assessment and Plan (1) Hypoxia: Status: Acute (2) Acute UTI: Status: Acute (3) Acute exacerbation of chronic obstructive airways disease: Status: Acute Plan 83-year-old female with history of hypertension, COPD not on home O2, paroxysmal atrial fibrillation anticoagulated with Pradaxa, AAA, recent subcapital fracture of R femur s/p ORIF at [facility] with recent discharge 2 weeks ago from SNF who is a current everyday smoker with 60 pack year history admitted for further management of COPD exacerbation with acute hypoxemic respiratory failure. #COPD exacerbation with acute hypoxemic respiratory failure -mild tachycardia due to albuterol use, not sepsis. -chest x-ray negative. Negative for COVID-19, flu, RSV -check RPP -IV methylprednisolone 40 mg b.i.d. -DuoNebs q.4h while awake, albuterol p.r.n. -IV azithromycin for pleiotropic effect (initiated 07/02) -continue supplemental O2 per protocol, wean as tolerated -follow CBC, cultures #Acute UTI -IV ctx (initiated 07/02) -follow cbc/cultures # paroxysmal atrial fibrillation-rate controlled -continue Pradaxa for anticoagulation -continue metoprolol for rate control # AAA -ASA, statin # hypertension -continue amlodipine #HFpEF -euvolemic, not on diuretics # s/p ORIF due to right femur fracture 05/31 -PT eval DVT prophylaxis- pradaxa full code pt requires inpt stay at least 2 midnights due COPD exacerbation with acute hypoxemic respiratory failure requiring IV steroids, supplemental O2 and close monitoring of respiratory status to monitor for and prevent decompensation Quality Stroke Does the patient have a stroke diagnosis?: No VTE Prior VTE?: No VTE Risk Level:: Medical - moderate - high VTE Device Contraindication: Treatment Not Indicated VTE Drug Contraindication: N/A - Med Ordered
--- OUTSIDE RECORDS SUMMARY | 2023-07-03 14:57 | XMS_ITS | Continuity of Care Document ---
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 Role Phone Jennifer Frost DO Primary Care Physician Encounter [facility] Date(s): 05/30/23 - 06/07/[address] [id number] Discharge Disposition: A-Transfer SNF Attending Physician: Francie Castrejon MD Admitting Physician: Nikunj BUTLER, Patria Referring Physician: Not on Staff, Referring MD Allergies, Adverse Reactions, Alerts No Known Allergies Immunizations Given and Recorded Vaccine Date Status Refusal Reason influenza virus vaccine, inactivated 12/19/21 Lucien rded influenza virus vaccine, inactivated 11/08/18 Lucien rded influenza virus vaccine, inactivated 11/04/17 Lucien rded influenza virus vaccine, inactivated 12/19/16 Lucien rded influenza virus vaccine, inactivated 10/21/15 Lucien rded pneumococcal 23-valent vaccine 10/21/15 Recorded Medications amLODIPine 5 mg oral tablet 5 mg, Tablet, By Mouth, 06/07/23 8:00:00 EDT Start Date: 06/07/23 Stop Date: 06/07/23 Status: Completed amLODIPine 5 mg oral tablet 5 mg, 1, tablet, By Mouth, Daily, Refills 0, Maintenance, 12/01/18 8:47:58 EDT Start Date: 12/01/18 Status: Ordered Aspir 81 Oral Enteric Coated Tablet 1 tablet = 81 mg, By Mouth, Daily, 0 Refills, Maintenance Start Date: 08/14/11 Status: Ordered Augmentin 875 mg-125 mg oral tablet 1 tablet, By Mouth, Every 12 hours, for 7 days, # 14 tablet, 0 Refills, Acute 06/14/23 10:40:00 EDT, 06/07/23 10:40:00 EDT, Tablet, Partial fill upon patient request if the prescription is for a schedule II opioid drug. Start Date: 06/07/23 Stop Date: 06/14/23 Status: Ordered dabigatran 150 mg oral capsule 0 Refills, Maintenance, 05/29/23 20:13:00 EDT, Partial fill upon patient request if the prescription is for a schedule II opioid drug. Start Date: 05/29/23 Status: Ordered dabigatran 150 mg oral capsule 1 capsule = 150 mg, By Mouth, 2 times a day, # 60 capsule, 0 Refills, Maintenance, 06/01/23 18:20:00 EDT, Capsule, [facility] 3, Partial fill upon patient request if the prescription is for a schedule II opioid drug., 167, cm, 06/01/23 11:... Start Date: 06/01/23 Status: Ordered lorazepam 1 mg oral tablet 1 tablet = 1 mg, By Mouth, 3 times a day, 0 Refills, Maintenance Start Date: 08/14/11 Status: Ordered metoprolol 50 mg oral tablet 50 mg, By Mouth, 2 times a day, # 60 capsule, Refills 0, Tot. Refills 0, Maintenance, 06/07/23 10:38:00 EDT, Do Not Route, Partial fill upon patient request if the prescription is for a schedule II opioid drug. Start Date: 06/07/23 Stop Date: 07/07/23 Status: Ordered metoprolol 50 mg oral tablet 50 mg, Tablet, By Mouth, Hold if SBP <100 Or if HR <55/min, 06/07/23 8:00:00 EDT Start Date: 06/07/23 Stop Date: 06/07/23 Status: Completed predniSONE 10 mg oral tablet See Instructions, 4 tablet By Mouth 2 times a day for 2 days, then 2 tablets by mouth 2 times a dayfor 2 days, then 1 tablet by mouth 2 times a day for 2 days and then stop, # 28 capsule, 0 Refills,Maintenance, 06/07/23 10:41:00 EDT, Tablet, Partial... Start Date: 06/07/23 Status: Ordered rosuvastatin 20 mg oral tablet 0 Refills, Maintenance, 05/29/23 20:13:00 EDT, Partial fill upon patient request if the prescription is for a schedule II opioid drug. Start Date: 05/29/23 Status: Ordered rosuvastatin 20 mg oral tablet See Instructions, 20 mg By Mouth Daily, # 30 capsule, 0 Refills, Maintenance, 06/07/23 10:46:00 EDT, Tablet, Partial fill upon patient request if the prescription is for a schedule II opioid drug. Start Date: 06/07/23 Status: Ordered Problem List Condition Confirmation Course Effective Dates Status Health St atus Informant AAA (abdominal aortic aneurysm) Confirmed Active Acute kidney injury Confirmed Active Atrial fibrillation Confirmed Active Pacemaker Confirmed Active COPD (chronic obstructive pulmonary disease) Confirmed Active Hip fracture Confirmed Active Tobacco abuse Confirmed Active Procedures Procedure Date Related Diagnosis Body Site Status Percutaneous skeletal fixati on of femoral fracture, proximal end, neck 1 06/01/23 Completed 1SN 7-0 yadiel screws 90mm calcar, post and 85 anterior Results Radiology Reports * Exam Date Time Procedure Performing Provider Status 06/03/23 9:57 AM Chest Portable [place]; Auth ( Verified) Notes: (Chest Portable) Reason For Exam: F/u on left lower lobe pneumonia;Shortness of Breath RESULT: Chest Portable Chest Portable AP upright at 9:44 AM Reason: Shortness of Breath; F u on left lower lobe pneumonia; Clinical Question(s): Pneumonia / Pneumonia COMPARISON: 06/02/2023 FINDINGS: LINES AND TUBES: Single lead left subclavian pacer wire is intact. LUNGS AND PLEURA: No significant change in retrocardiac opacity. Mild blunting of the right costophrenic angle, similar to prior. The central pulmonary vasculature is prominent and indistinct. No pneumothorax. HEART, MEDIASTINUM AND EMMETT: Unchanged. BONES AND SOFT TISSUES: No acute abnormality. IMPRESSION: No significant change in left larger than right pleural effusions and retrocardiac airspace opacitythat could be due to atelectasis or pneumonia. WSN: [id number] Ordering Physician: Cy Yost Dictated By: Homar Whitfield MD Dictated Date/Time: 06/03/23 10:27 a Reviewed By: Homar Whitfield MD Signed By: Homar Whitfield MD Signed Date/Time: 06/03/23 10:27 am Transcribed By: HECTOR Transcribed Date/Time: 06/03/23 10:26 am * Exam Date Time Procedure Performing Provider Status 06/02/23 11:[address] Angio Chest Neha Greene; Auth ( Verified) Notes: (CT Angio Chest) Reason For Exam: PE Suspected, Intermediate Prob, Positive D-Dimer;Other: RESULT: CT Angio Chest EXAMINATION: CT Angio Chest INDICATION: Reason: Other:; PE Suspected, Intermediate Prob, Positive D-Dimer; Clinical Question(s): Pulmonary Embolism; Order Comment: TECHNIQUE: Spiral CTA of the chest was performed after rapid IV contrast administration without cardiac gating, triggered by an VANNESSA on the main pulmonary artery. Images are formatted in multiple planes using 2-D multiplanar and 3-D maximum intensity projection. 60 cc of Omnipaque 300 was administered intravenously. Weight-based protocol using automatic tube modulation was used to optimize exposure parameters. CTDIvol Body: 4.80 mGy, DLP Body: 260 mGy*cm. COMPARISONS: 07/08/2015. ANGIOGRAPHIC FINDINGS: No pulmonary embolism to the subsegmental level. Normal caliber pulmonary arteries. Mild-moderate aortic annular calcifications. Moderate-severe thoracic aortic atherosclerosis. Partially imaged infrarenal abdominal aortic TEVAR. No acute aortic abnormality seen on this study performed without cardiac gating. NON-ANGIOGRAPHIC FINDINGS: Ton Container Shipper View Findings, Lines and Tubes: Left shoulder for a dual-lead pacing device reticular nodularatrium and right ventricle. Trachea and Airways: Patent without evidence of tracheal or endobronchial lesion. Lungs and Pleura: Mild biapical pleural and parenchymal scarring. Severe centrilobular emphysema. 5mm nodule in the posterior right apex (series 604, image 18), stable. No new pulmonary nodules. Near complete collapse of the left lower lobe. Additional right lower lobe atelectasis. New small left effusion. Previous right pleural effusion. Mild chronic thickening adjacent to the superior right major fissure. No pneumothorax. Mediastinum and emmett: Increased leftward cardiomediastinal shift. No mass or hematoma. No mediastinal or hilar lymphadenopathy. No esophageal abnormality. Normal thyroid. Heart: Mild cardiomegaly, unchanged. Mild left ventricular hypertrophy. No pericardial effusion. Interval resolution of small pericardial effusion. Chest Wall Soft Tissues: Normal. Diaphragm and upper abdomen: No significant abnormality. Small exophytic right renal cyst. Associated nonobstructing right nephrolithiasis. Bones: Probably diffuse osseous demineralization. Mild multilevel thoracic degenerative disc disease. No acute abnormality. IMPRESSION: No evidence of pulmonary embolism. New bilateral effusions are larger on the left. Associated left lower lobe collapse. Severe centrilobular emphysema. No intrathoracic adenopathy. 5 mm right upper lung pulmonary nodule. WSN: [id number] Ordering Physician: Cornelio Coy Dictated By: Daiana Arcos MD Dictated Date/Time: 06/02/23 12:15 p Reviewed By: Daiana Arcos MD Signed By: Daiana Arcos MD Signed Date/Time: 06/02/23 12:15 pm Transcribed By: HECTOR Transcribed Date/Time: 06/02/23 12:01 pm * Exam Date Time Procedure Performing Provider Status 06/02/23 8:52 AM Chest Portable Darian Santiago; Auth (Verified) Notes: (Chest Portable) Reason For Exam: hypoxia;Other: RESULT: Chest Portable Chest Portable upright at 8:37 AM Reason: Other:; hypoxia; Clinical Question(s): Other: COMPARISON: 05/30/2023 FINDINGS: LINES AND TUBES: Dual-lead cardiac pacemaker. LUNGS AND PLEURA: Persistent opacification of the retrocardiac portion of the left lung with an obscured left hemidiaphragm and costophrenic angle. Allowing for the degree of patient rotation, this appears similar to the previous study. Lungs are otherwise clear with normal vascularity. No right pleural effusion. No pneumothorax. HEART, MEDIASTINUM AND EMMETT: Stable cardiac size. Normal mediastinal and hilar contour. BONES AND SOFT TISSUES: No acute abnormality. Abdominal aortic endovascular stent is partially imaged. IMPRESSION: No significant change from 05/30/2023. Left lung infiltrate versus atelectasis with probable left pleural effusion. WSN: [id number] Ordering Physician: Cornelio Coy Dictated By: Darian Morgan MD Dictated Date/Time: 06/02/23 9:09 am Reviewed By: Darian Morgan MD Signed By: Darian Morgan MD Signed Date/Time: 06/02/23 9:09 am Transcribed By: HECTOR Transcribed Date/Time: 06/02/23 9:07 am * Exam Date Time Procedure Performing Provider Status 06/01/23 1:44 PM C-Arm < 1 Hour Eulogio Grimm; Auth (Ve rified) Notes: (C-Arm < 1 Hour) Reason For Exam: Right Hip FX, Pinning RESULT: C-Arm < 1 Hour Hip Comp 2 Views Right, C-Arm < 1 Hour Reason: Right Hip FX, Pinning COMPARISON: Pelvic and right hip radiographs dated 05/29/2023. FINDINGS: Intraoperative fluoroscopic support was provided. No radiologist was in attendance. 7 selected intraoperative fluoroscopic images of the right hip were submitted for interpretation. Technologist time: 50 minutes. Fluoroscopic time: 33.4 seconds. Selected intraoperative fluoroscopic images demonstrate fixation of the mildly impacted right subcapital/proximal femoral neck fracture with 3 cannulated surgical screws. IMPRESSION: Status post ORIF of the right proximal femur. WSN: [id number] Ordering Physician: Kamran Hardwick Dictated By: Ana Paula Mendieta MD Dictated Date/Time: 06/01/23 4:05 pm Reviewed By: Ana Paula Mendieta MD Signed By: Ana Paula Mendieta MD Signed Date/Time: 06/01/23 4:05 pm Transcribed By: HECTOR Transcribed Date/Time: 06/01/23 3:38 pm * Exam Date Time Procedure Performing Provider Status 06/01/23 1:44 PM XR Hip Comp 2 Views Right Agueda Grimm; Modified Notes: (XR Hip Comp 2 Views Right) Reason For Exam: Right Hip FX, Pinning RESULT: Hip Comp 2 Views Right Hip Comp 2 Views Right, C-Arm < 1 Hour Reason: Right Hip FX, Pinning COMPARISON: Pelvic and right hip radiographs dated 05/29/2023. FINDINGS: Intraoperative fluoroscopic support was provided. No radiologist was in attendance. 7 selected intraoperative fluoroscopic images of the right hip were submitted for interpretation. Technologist time: 50 minutes. Fluoroscopic time: 33.4 seconds. Selected intraoperative fluoroscopic images demonstrate fixation of the mildly impacted right subcapital/proximal femoral neck fracture with 3 cannulated surgical screws. IMPRESSION: Status post ORIF of the right proximal femur. WSN: [id number] Ordering Physician: Kamran Hardwick Dictated By: Ana Paula Mendieta MD Dictated Date/Time: 06/01/23 4:05 pm Reviewed By: Ana Paula Mendieta MD Signed By: Ana Paula Mendieta MD Signed Date/Time: 06/01/23 4:05 pm Transcribed By: HECTOR Transcribed Date/Time: 06/01/23 3:38 pm Vital Signs Most recent to oldest [Reference Range]: 1 2 3 Height 0 cm (06/07/23 11:01 AM) 0 cm (06/07/23 7:12 AM) 0 cm (06/07/23:26 AM) Weight 58.9 kg (06/01/23 11:51 AM) 58.9 kg (05/30/23 9:07 PM) 58.9 kg (05/30/23 8:59 PM) Oxygen Saturation [94-100 %] 96 % (06/07/23: AM) 93 % *L* (06/07/23 7:12 AM) 94 % (06/07/23 5: AM) Pulse Rate [55-90 bpm] 60 bpm (06/07/23 11:01 AM) 60 bpm (06/07/23 8:23 AM) 60 bpm (06/07/23 7:12 AM) Body Mass Index [18.5-24.99 kg/m2] 21.12 kg/m2 (06/01/23 11:51 AM) 21.12 kg/m2 (05/30/23 9:07 PM) 21.12 kg/m2 (05/30/23 8:59 PM) Blood Pressure [90-138/55-84 mm Hg] 162/61mm Hg *H* (06/07/23 11:01 AM) 157/83mm Hg *H* (06/07/23 8:23 AM) 157/83mm Hg *H* (06/07/23 8:23 AM) Respiratory Rate [16-30 br/min] 18 br/min (06/07/23 11:01 AM) 17 br/min (06/07/23 7:12 AM) 18 br/min (06/07/23 5:26 AM) Temperature [96.8-100.4 DegF] 97.6 DegF (06/07/23 11:01 AM) 97.5 DegF (06/07/23 7:12 AM) 97.6 DegF (06/07/23: AM) Liters per Minute 2 L/min (06/07/23 7:12 AM) 2 L/min (06/07/23 5:26 AM) 2 L/min (06/07/23 12:36 AM) Mode of Delivery (Oxygen) Room air (06/07/23 11:01 AM) Nasal cannula (06/07/23 7:12 AM) Nasal cannula (06/07/23 5:26 AM) Blood pressure sites Arm, left (06/07/23 11:01 AM) Arm, left (06/07/23 7:12 AM) Arm, left (06/07/23 5:26 AM) Temperature Route Oral (06/07/23 11:01 AM) Oral (06/07/23 7:12 AM) Oral (06/07/23 5:26 AM) Dry Weight 58.9 kg (05/30/23 9:07 PM) 58.9 kg (05/30/23 8:59 PM) Social History Social History Type Response Smoking Status 10 or more cigarette s (1/2 pack or more)/day in last 30 days entered on: 07/28/20 Sex Admission evaluation note * Kurtis BUTLER, Daniela Meraz: PERFORM, MODIFY, MODIFY Event Display: Admission Note Authored Date: Patient: ??ZITA PHELAN ? Age:??83 Years?Sex:??Female?:??1940?? Chief Complaint/Reason for Consultation transfer from [facility] for orthopedic intervention History of Present Illness 83-year-old female patient with past medical history of COPD, chronic tobacco use, atrial fibrillation s/p permanent pacemaker implantation currently on Pradaxa who presents today to our facility as a transfer from [facility] for orthopedic procedure.?? Patient had a mechanical fall and presents to [facility] for right hip pain, she was found to have subcapital fracture of the right femur and the plan was for ORIF at [facility] however the hospitalization course was complicated by acute hypoxia which was believed secondary to pneumonia, she was treated empirically by antibiotics.?? Due to underlying presumed COPD, anesthesia at [facility] recommended transfer for higher level of care therefore, she was transferred to our facility for orthopedic evaluation.?? Upon arrival to our facility she was hemodynamically stable, was maintaining saturation above 90% on roomair. Upon my evaluation, she was lying comfortably bed without any signs of distress denies any symptoms at present Review of Systems A full review of systems was completed and is otherwise negative except as mentioned in history of present illness. Objective Measurements?? Height: 167 cm (05/30/23) Weight: 58.9 kg (05/30/23) Dry Weight: 58.9 kg (05/30/23) Body Mass Index: 21.12 kg/m2 (05/30/23) ? Vital Signs?? Temperature: 98.1 DegF (05/30/23 20:59:00) Temperature Route: Oral (05/30/23 20:59:00) Pulse Rate:??50 bpm??Low (05/30/23 20:59:00) Respiratory Rate: 18 br/min (05/30/23 20:59:00) Systolic Blood Pressure:??143 mm Hg??High (05/30/23 20:59:00) Diastolic Blood Pressure:??45 mm Hg??Low (05/30/23 20:59:00) Blood pressure sites: Arm, right (05/30/23 20:59:00) Mean Arterial Pressure: 78 mm Hg (05/30/23 20:59:00) Pulse Pressure: 98 mm Hg (05/30/23 20:59:00) Oxygen Saturation: 95 % (05/30/23 20:59:00) Liters per Minute: 4 L/min (05/30/23 20:59:00) Mode of Delivery (Oxygen): Room air (05/30/23 20:59:00) FiO2: 32 % (05/30/23 10:15:00) Early Warning Score: 3 (05/30/23 21:05:27) ? Intake/Output? No Data Available ? Physical Exam General Appearance: The patient is in NAD. Head: atraumatic EENT: MMM, no scleral icterus Cardiovascular: RRR no MRG Respiratory:?? Breath sounds clear to auscultation bilaterally. No wheezing. room air. GI: Soft. Nontender and nondistended. Normal bowel sounds present throughout abdomen. MS:?? No edema or erythema in the lower extremities. Peripheral sensation intact. Skin: warm, dry, no rashes Neuro:?? No slurred speech.?? Patient seen moving their upper and lower extremities independently. Psych: calm Lines: Peripheral IV in place. Assessment/Plan Diagnoses Abnormal weight loss ??(R63.4) Acute hypoxic respiratory failure ??(J96.01) Anemia ??(D64.9) Fall ??(W19.XXXA) Hip fracture ??(S72.009A) Memory impairment ??(R41.3) Paroxysmal atrial fibrillation ??(I48.0) Subcapital fracture of right femur ??(S72.011A) ?? Subcapital fracture of right femur (S72.011A):?? Fall (W19.XXXA):??. Mechanical fall leading to subcapital fracture of right femur. She was seen and evaluated by orthopedic??and the plan was for??ORIF at [facility] however the??hospitalization course was complicated by acute hypoxia. Anesthesia recommended transfer to??[facility] for higher level of care??due to??underlying COPD/lung disease. DVT prophylaxis. Pain medication as needed. N.p.o. after midnight. Orthopedics aware of the transfer. I tried paging orthopedics??but the pager??goes to office number.??Please communicate with the PA in the morning. Patient??is relatively independent at baseline. She does not have??symptoms??or signs suggestive of active coronary artery disease,??decompensated heart failure,??or decompensated lung disease. She is currently maintaining saturation above 90% on room air. Joshua Perioperative Risk for Myocardial Infarction or Cardiac Arrest (KRYSTYNA)> is 0.4 %>??risk of WA or cardiac arrest, intraoperatively or up to 30 days postop. ARISCAT Score for Postoperative Pulmonary Complications is 51 points which is high risk carries??42.1% risk of in-hospital post-op pulmonary complications (composite including respiratory failure, respiratory infection, pleural effusion, atelectasis, pneumothorax, bronchospasm, aspiration pneumonitis) DuoNebs as needed. She seems to have??undiagnosed/untreated??COPD.??She does not seem to be in exacerbation though. Aggressive bowel??regimen. Aggressive pulmonary??toileting postop. ? Acute hypoxic respiratory failure (J96.01):?? She developed hypoxia??and with the hospital prior to the transfer. She has presumed??COPD??however she is not on chronic inhalers. She still??smokes severe, she has a history of??60 pack??years smoking history. D??chest x-ray with??possible??pneumonia versus atelectasis. Negative flu, RSV, COVID-19. She was initially on 2 L/min to maintain saturation above 98% however??that was successfully weanedoff??after transfer to our facility. Procalcitonin is 0.05. Differential diagnoses??are??pneumonia versus atelectasis. She was treated empirically with IV antibiotics, will continue for??3 days. Incentive spirometry??every 2-4 hours while awake. ? Abnormal weight loss (R63.4): Reports of??approximately 10 pounds of unintentional weight loss over the past couple months. Further evaluation as outpatient. ?? Paroxysmal atrial fibrillation (I48.0):?? Currently in sinus Pradaxa is on hold in anticipation for surgery Continue metoprolol ? Memory impairment (R41.3):?? Suspected??mild cognitive impairment versus mild dementia. Further workup as outpatient. ?? Anemia (D64.9):?? Hemoglobin is 9-10. Anemia workup. ? VTE Prophylaxis:??Lovenox ?VTE Prophylaxis Assessment:??VTE Prophylaxis Ordered ?? Code Status:??Full resuscitation ?Order Code Status:??Code Status Ordered ?? Discharge Planning:?? Histories Allergies Allergies ?(Active and Proposed Allergies Only) NKA? (Severity: Unknown severity, Onset: Unknown) ? Past Medical History/Problem List Active Problems(2) AAA (abdominal aortic aneurysm) Tobacco abuse ? Past Surgical History No surgery history documented. ? Social History Alcohol Details:??Use: Never. Substance Abuse Details:??Use: Never. Tobacco Details:??Use: 10 or more cigarettes (1/2 pack or more)/day in last 30 days. Details:??Use: 4 or less cigarettes(less than 1/4 pack)/day in last 30 days. ? Family History No Family History documented. ? Medications Home Medications Amlodipine (amLODIPine 5 mg oral tablet)?5?Milligram?1?tablet?By Mouth?Daily Aspirin (Aspir 81 Oral Enteric Coated Tablet)?1?tab(s)?81?Milligram?By Mouth?Daily Lorazepam (lorazepam 1 mg oral tablet)?1?tab(s)?1?Milligram?By Mouth?3 times a day ? Results Recent Labs BLOOD BANK Blood Type A Positive ()?? 05/29/2023 20:27 Antibody Screen Negative ()?? 05/29/2023 20:27 ?? BLOOD COUNT & DIFF WBC 7.6 k/mm3 ()?? 05/30/2023 05:49 RBC 3.16 m/mm3 (Low)?? 05/30/2023 05:49 Hgb 9.3 Gm/dL (Low)?? 05/30/2023 05:49 Hct 29.6 % (Low)?? 05/30/2023 05:49 MCV 93.7 femtoliters ()?? 05/30/2023 05:49 MCH 29.4 pg ()?? 05/30/2023 05:49 MCHC 31.4 g/dL (Low)?? 05/30/2023 05:49 Platelet Count 236 k/mm3 ()?? 05/30/2023 05:49 RDW-SD 48.1 femtoliters (High)?? 05/30/2023 05:49 MPV 10.0 femtoliters ()?? 05/30/2023 05:49 Nucleated RBC (Automated) 0.0 #/100 WBC'S ()?? 05/30/2023 05:49 Abs. NRBC 0.0 k/mm3 ()?? 05/30/2023 05:49 Abs. Neut 6.6 k/mm3 ()?? 05/30/2023 05:49 Abs. Lymph 0.5 k/mm3 (Low)?? 05/30/2023 05:49 Abs. Shoshone 0.5 k/mm3 ()?? 05/30/2023 05:49 Abs. Eo 0.0 k/mm3 ()?? 05/30/2023 05:49 Abs. Baso 0.0 k/mm3 ()?? 05/30/2023 05:49 Neut % 86.2 % (High)?? 05/30/2023 05:49 Lymph % 7.1 % (Low)?? 05/30/2023 05:49 Shoshone % 6.2 % ()?? 05/30/2023 05:49 Eos % 0.0 % ()?? 05/30/2023 05:49 Baso % 0.0 % ()?? 05/30/2023 05:49 Imm Gran 0.5 % ()?? 05/30/2023 05:49 Abs. Imm Gran 0.0 k/mm3 ()?? 05/30/2023 05:49 ?? BLOOD GAS pH 7.38 ()?? 05/30/2023 10:15 pCO2 47 mm Hg (High)?? 05/30/2023 10:15 pO2 67 mm Hg (Low)?? 05/30/2023 10:15 Bicarbonate, Estimated 28 mmol/L ()?? 05/30/2023 10:15 Specimen Type - Blood Gas ARTERIAL ()?? 05/30/2023 10:15 Percent O2 (FIO2) FIO2:32% ()?? 05/30/2023 10:15 ?? CHEM GENERAL Sodium 137 mmol/L ()?? 05/30/2023 05:49 Potassium 4.7 mmol/L ()?? 05/30/2023 05:49 Chloride 102 mmol/L ()?? 05/30/2023 05:49 Bicarbonate Level 26 mmol/L ()?? 05/30/2023 05:49 Anion Gap 9 ()?? 05/30/2023 05:49 Glucose Level 105 mg/dL (High)?? 05/30/2023 05:49 BUN 21 mg/dL ()?? 05/30/2023 05:49 Creatinine-Blood 1.1 mg/dL (High)?? 05/30/2023 05:49 Estimated GFR Creatinine 50 ML/MIN/1.73 M2 ()?? 05/30/2023 05:49 Calcium 8.8 mg/dL ()?? 05/30/2023 05:49 Protein, Total 6.1 Gm/dL (Low)?? 05/30/2023 05:49 Albumin 3.3 Gm/dL (Low)?? 05/30/2023 05:49 AG Ratio 1.2 ()?? 05/30/2023 05:49 Alkaline Phosphatase 75 units/L ()?? 05/30/2023 05:49 AST (SGOT) 16 units/L ()?? 05/30/2023 05:49 ALT (SGPT) 10 units/L ()?? 05/30/2023 05:49 Bilirubin, Total 0.3 mg/dL ()?? 05/30/2023 05:49 ?? COAG INR 1.5 (High)?? 05/30/2023 05:49 Protime (PT) 15.7 seconds (High)?? 05/30/2023 05:49 APTT 44.2 seconds (High)?? 05/30/2023 05:49 ?? HEME OTHER Hold Lavender Top SPECIMEN DISCARDED AFTER 24 HOURS. ()?? 05/30/2023 05:49 ?? MISC. CHEMISTRY Hold Green Top SPECIMEN DISCARDED AFTER 1 WEEK ()?? 05/30/2023 05:49 Procalcitonin 0.05 ng/mL ()?? 05/30/2023 05:49 Hold Gel Top SPECIMEN DISCARDED AFTER 1 WEEK ()?? 05/29/2023 17:54 ?? URINE OTHER Est Creatinine Clearance 32.45 mL/min ()?? 05/30/2023 10:12 ?? VIROLOGY Influenza A PCR NEGATIVE ()?? 05/30/2023 16:23 Influenza B PCR NEGATIVE ()?? 05/30/2023 16:23 RSV PCR NEGATIVE ()?? 05/30/2023 16:23 COVID-19 PCR Specimen Source NASAL ()?? 05/30/2023 16:23 COVID-19 PCR Result NEGATIVE ()?? 05/30/2023 16:23 ? EKG study * Event Display: ECG 12-Lead Authored Date: Please click on pdf link to open report * Event Display: ECG 12-Lead Authored Date: Ventricular Rate: 130 BPM Atrial Rate: 131 BPM QRS Duration: 90 ms Q-T Interval: 276 ms QTC Calculation(Bazett): 406 ms R Purcell: 8 degrees T Purcell: 138 degrees Atrial fibrillation with rapid ventricular response Anteroseptal infarct , age undetermined ST and T wave abnormality, consider lateral ischemia Abnormal ECG When compared with ECG of 29-MAY-2023 17:54, Vent. rate has increased BY 70 BPM Confirmed by ROSA ISELA BANKS MD ([id number]) on 06/06/2023 4:16:24 PM [place]: ROSA ISELA BANKS MD Heart * Event Display: Echocardiogram - Complete Authored Date: [id number] Transthoracic Echocardiography Report (TTE) Patient Demographics Patient Name ZITA PHELAN Date of Study 06/03/2023 Corporate Gender Female Facility Race Ethnicity Date of 1940 Height: 65.75 inches Age 83 year(s) Weight: 127.89 pounds Accession Number [id number] BSA: 1.65 m2 Room Number [id number] BMI: 20.8 kg/m2 Referring Physician Marika Pratt MD Interpreting Scottie Drake MD Physician Lidar Scientist Derick MACKAY Nichelle Indications Shortness of breath. Clinical History COPD/Emphysema. Tobacco use. Atrial fibrillation. Pacemaker. Study Data Type of Study TTE procedure:Echo Complete-Doppler, Colorflow, M-Mode. Procedure Information:TDS, restricted mobility/fracture R hip Study Date06/03/2023 Start Time: 10:30 AM Study Location: [facility] Adult Echo Study Status: Bedside Patient Status: Routine Technical Quality: Technically difficult due to rib artifact. Blood Pressure:163/49 mmHg EKG: Sinus with ectopy HR: 69 bpm 2D Measurements LV Diastolic Dimension: 3.9 cm LV Systolic Dimension: 3.1 cm LV Septum Diastolic: 1.2 cm LV PW Diastolic: 0.8 cm AO Root Dimension: 3 cm LA Dimension: 3.4 cm LVOT Stroke Volume: 89.18 ml LVOT: 2 cm Stroke Volume Index54.05 ml/m2 Ascending Aorta:3.4 cm Cardiac Index:3.73 l/min/m2 Doppler Measurements AV Peak Velocity: 263 cm/s MV Peak E-Wave: 107 cm/s AV Peak Gradient: 27.67 mmHg MV Peak A-Wave: 58.3 cm/s AV Mean Gradient: 15 mmHg MV E/A Ratio: 1.84 AV VTI:60.5 cm MV P1/2t: 42 msec LVOT Peak Velocity: 128 cm/s LVOT VTI28.4 cm MV Deceleration Time: 143 msec AV Area (Continuity):1.47 cm2 MV Area (PHT): 5.24 cm2 AV P1/2t: 311 msec TR Velocity:340 cm/s PV Peak Velocity: 97 cm/s TR Gradient:46.24 mmHg PV Peak Gradient: 3.76 mmHg Estimated RAP:3 mmHg Estimated RVSP: 49.2 mmHg E' Septal Velocity: 6.64 cm/s E' Lateral Velocity: 10.4 cm/s E/Med E':[id number] E/Lat E':10.65420 Cardiac Anatomy Left Ventricle/Interventricular Septum The left ventricular size is normal. There is mild discrete upper septal thickening (IVSd 1.2 cm), without evidence of significant left ventricular outflow tract obstruction. Ejection fraction is 55-60%. The basal inferior wall is akinetic. Indeterminate diastolic function. Left Atrium/Interatrial Septum Left atrial size not adequately assessed. The left atrium is poorly visualized. Aortic Valve There is moderate aortic regurgitation. The aortic valve is trileaflet. The aortic valve appears moderately thickened. The aortic valve leaflet opening is moderately decreased. There is mild aortic stenosis. Mitral Valve The anterior mitral valve leaflet appears moderately thickened and rheumatic with reduced leaflet excursion. There is moderate mitral regurgitation. Mitral valve mean gradient not obtained. Aorta The ascending aorta and aortic root are normal in size. Right Ventricle The right ventricle is normal in size and function. A pacer/ICD wire is appreciated in the right ventricle but not well seen. Right Atrium Right atrial pacemaker lead is present. There is acoustical shadowing from the device lead impairing adequate visualization of the right atrium. A distinct right atrial mass cannot be excluded. Pulmonic Valve The pulmonic valve is poorly visualized. There is trace pulmonic regurgitation. Tricuspid Valve The tricuspid valve appears mildly thickened. There is mild tricuspid valve regurgitation. Pumonary Artery The pulmonary artery systolic pressure estimation is 45-50 mmHg. Venous Structures The inferior vena cava size is normal with normal inspiratory collapse. The central venous pressure estimation is 3 mmHg. Pericardium/Extracardiac There is a trivial to small pericardial effusion seen posteriorly on parasternal long axis views. Subcostal views are inadequate. There is a left-sided pleural effusion. Summary Technically Difficult Study Right atrial pacemaker lead is present. There is acoustical shadowing from the device lead impairing adequate visualization of the right atrium. A distinct right atrial mass cannot be excluded. The left ventricular size is normal. There is mild discrete upper septal thickening (IVSd 1.2 cm), without evidence of significant left ventricular outflow tract obstruction. Ejection fraction is 55-60%. The basal inferior wall is akinetic. Indeterminate diastolic function. There is moderate aortic regurgitation. The aortic valve is trileaflet. The aortic valve appears moderately thickened. The aortic valve leaflet opening is moderately decreased. There is mild aortic stenosis. The anterior mitral valve leaflet appears moderately thickened and rheumatic with reduced leaflet excursion. There is moderate mitral regurgitation. Mitral valve mean gradient not obtained. The right ventricle is normal in size and function. The pulmonary artery systolic pressure estimation is 45-50 mmHg. A pacer/ICD wire is appreciated in the right ventricle but not well seen. There is a trivial to small pericardial effusion seen posteriorly on parasternal long axis views. Subcostal views are inadequate. There is a left-sided pleural effusion. Comparison Comparison is made to the study of June 19, 2017. Worsened aortic regurgitation since previous study. Worsened mitral regurgitation since previous study. Basal inferior wall now appears akinetic. Signature * Event Display: Echocardiogram - Complete Authored Date: Cardiology * Event Display: Cardiac Rhythm Strips Authored Date: Hospital Progress note * Magi Lawrence RN: PERFORM, SIGN, VERIFY Event Display: Progress Note Hospital Authored Date: [id number] Patient: ZITA PHELAN Age: 83 years Sex: Female : 1940 Associated Diagnoses: None Author: Magi Lawrence RN Problem Related to Alteration in Comfort : Alteration in Comfort/new 06/07/2023 6:53 EDT Alteration in Comfort Related to Surgery, Other: ORIF Right hip 05/30 Goals & Outcomes: Comfort Pt will report acceptable level of comfort & pain control, Pt will state importance of adhering to pain strategy regime, Pt will demonstrate necessary skills to manage pain, Non-verbal indicators will indicate comfort/pain control Interventions Implemented: Comfort Assess pain using appropriate pain scale/tools, Assess aggravating factors & prevent them accordingly, Assess alleviating factors & promote them accordingly Goals/Interventions, Comfort Yes Comfort, Problem Start 06/06/2023 23:03 Reviewed plan with, Comfort Patient Patient Progression, Comfort Pt progressing according to plan Comfort, Problem Ongoing Yes . Alteration in Musculoskeletal : Alteration in Musculoskeletal Func/new 06/07/2023 6:53 EDT Alteration in Musculoskeletal Related to Fracture, Orthopedic Procedure, Other: ORIF Right hip 05/30 Goals & Outcomes, Musculoskeletal Affected extremity will maintain color/motion/sensation, Pt able to perform ADL's to best of ability, Pt demonstrates precautions/exercise/ transfers per protocol, Pt will ambulate safely with assistive device, Pt will be free from complications of immobility, Pt will demonstrate ability to participate in ADL's, Pt will report acceptable level of comfort/painrelief Interventions, Musculoskeletal Monitor patients ambulation status, monitor Color/Motion/Sensation, Assist with repositioning, Encourage deep breathing & coughing exercises, Notify MD immediately if tissue perfusion deteriorates, Obtain assistive devices as needed, Teach & Encourage use of Incentive spirometer, Teach Pt/caregiver on ADL's & adaptive equipment, Teach Pt/caregiver on exercises, Teach pt/caregiver on use of pain scale, Teach Pt/caregiver complications of immobility, Teach Pt/caregiver techniques to increase mobility, Teach Pt/caregiver on safety precautions, Incision care as ordered Goals/Interventions, Musculoskeletal Yes Musculoskeletal, Problem Start 05/31/2023 3:19 Reviewed Plan with, Musculoskeletal Patient Patient Progression, Musculoskeletal Pt progressing according to plan . Nursing Data Cardiac Data. : Cardiac Data. 06/07/2023 9:00 EDT Skin Temperature Upper Extremities Warm Skin Temperature Lower Extremities Warm Cardiac Rhythm Atrial fibrillation Capillary Refill < 3 seconds Dorsalis Pedis Pulse, Left Normal Dorsalis Pedis Pulse, Right Normal project specialist Yes Cardiovascular WNL except . Gastrointestinal Data. : Gastrointestinal Data. 06/07/2023 9:00 EDT Gastrointestinal Symptoms Incontinence, stool Abdomen Soft, Non-tender Bowel Sounds LUQ Present Bowel Sounds RUQ Present Bowel Sounds LLQ Present Bowel Sounds RLQ Present Last Bowel Movement 06/07/2023 GI WNL except . Genitourinary Data. : Genitourinary Data. 06/07/2023 9:00 EDT Urinary catheter type Female External Urine Collection Device Urine Color Yellow Urine Description Clear WNL except . Integumentary Data. : Integumentary Data. 06/07/2023 10:06 EDT Skin Integrity Not intact Integumentary WNL except Hip Right Skin Abnormality Type: Surgical incision Wound Assessment Activity: Reassessment Surgical Incision Detailed Assessment: Yes Incision Surgical Detail: Unable to visualize Wound Dressing: Hydrocolloid dressing Wound Dressing Assessment: Shadowing noted and outlined Wound Dressing Activity: Intact Wound Surrounding Tissue: Normal Drainage Amount: None Coccyx Skin Abnormality Type: Pressure injury Pressure Injury Stage: 2 Wound Dressing: Zinc Oxide, Other: Triad cream Wound Dressing Activity: Applied 06/07/2023 10:05 EDT Sensory Perception No impairment Moisture Occasionally moist Activity Chairfast Mobility Very limited Nutrition Adequate Friction and Shear No apparent problem Hiram Score 17 Nursing Care Plan initiated/updated Yes . Musculoskeletal Data. : Musculoskeletal Data. 06/06/2023 20:26 EDT Musculoskeletal Symptoms Joint stiffness, Joint swelling, Joint tenderness Joint Location Hip, right Musculoskeletal WNL except . Neurological Data. : Neurological Data. 06/07/2023 9:00 EDT Neurological Symptoms Unsteady gait/Ataxia, Weakness or loss of muscle strength Level of Consciousness Full Consciousness Orientated to person, place, time Person, Place, Time, Event Gait Unable to assess Neuro WNL except Memory Intact . Respiratory/Pulmonary Data. 06/07/2023 9:00 EDT Respiratory Symptoms None Respiratory effort Unlabored Chest expansion Symmetrical Accessory Muscles use No Cough No cough Respiratory pattern Regular Left Upper Lobe Breath Sounds Diminished Right Upper Lobe Breath Sounds Diminished Right Middle Lobe Breath Sounds Diminished Left Lower Lobe Breath Sounds Diminished Right Lower Lobe Breath Sounds Diminished Respiratory distress None Respiratory Treatment(s) Cough and deep breathe, Incentive spirometry Respiratory WNL except . Evaluation P: Alteration in Musculoskeletal/Comfort I: Interventions as listed in careplan E: R femur ORIF 05/30. R thigh aquacell with old staining, marked with pen to monitor. Reporting pain 0/10, declined when offered tylenol. Has been 2 assist with walker to s/p to chair. +CMS +D/P flexion +Pedal pulses. C-boots applied to bilateral LE. In pulmonary therapeutic bed. denies numbness/tingling, headache, nausea, dizziness, CP, SOB. Scheduled nebs given as ordered. AOx3. answers questions appropriately. Very anxious regarding discharge to rehab today and required reinforcement regarding plan of care and needing to wait for insurance authorization. Emotional support given. Coccyx hasopen area, triad cream applied liberally. Had large loose brown BM in bed this morning, hygenic care provided. Lung sounds diminished. on 2 L oxygen overnight, discontinued this morning when awake and alert. Primafit draining CYU. Zosyn given Q8, dose rescheduled this morning as previous dose stillrunning. Regular BG checks, not requiring SS insulin for breakfast. Repositions easily in bed. Bolus LR 500ml currently running. Discharge today to [facility] at 1230. Report called to S3 discharge unit. Safety measures maintained bed alarmed, locked, in lowest position. Call verde and personal items kept in reach. Freq rounding to meet needs. . Discharge Information Pulmonary Rehab Discharge : Pulmonary Rehab Discharge Status 06/03/2023 1:05 EDT CPAP/BiPAP Mask Type Full CPAP/BiPAP Mask Size Small 06/02/2023 21:41 EDT CPAP/BiPAP Mask Type Full CPAP/BiPAP Mask Size Small 06/02/2023 11:42 EDT CPAP/BiPAP Mask Type Full CPAP/BiPAP Mask Size Small 06/02/2023 9:40 EDT CPAP/BiPAP Mask Type Full CPAP/BiPAP Mask Size Small Rehabilitation Discharge : Rehab Discharge Index 06/06/2023 14:26 EDT Walker: distance < 10 06/05/2023 12:09 EDT Comments on treatment indicated adls funclt mob safety pt edu endurnace Full chart review completed Yes Hospital course 83 F s/p mechanical fall resulting in R hip and wrist pain. CT scan of the pelvis revealing a right femoral subcapital fracture. Now s/p ORIF on 05/3106/05/2023 8:52 EDT Walker: distance < 10 06/04/2023 9:21 EDT Walker: distance < 10 06/02/2023 7:57 EDT Comments on treatment indicated 83 F s/p mechanical fall resulting in R hip and wrist pain. CT scan of the pelvis revealing a right femoral subcapital fracture. Now s/p ORIF on 05/31. PT for strength, endurance, ambulation, balance, stairs. Rec home vs post acute rehab pending progress Distance pt will ambulate 25 ft Full chart review completed Yes Hospital course Hospital course Other findings see comment Plan of care PT Gait training, Transfer training, Therapeutic exercise, Functional Activities, Balance training * Ben Soares RN: SIGN, MODIFY, MODIFY, SIGN, VERIFY, PERFORM Event Display: Progress Note Hospital Authored Date: [id number] Patient: ZITA PHELAN Age: 83 years Sex: Female : 1940 Associated Diagnoses: None Author: Ben Soares RN Findings Problem Related to Alteration in Comfort : Alteration in Comfort/new 06/06/2023 23:00 EDT Alteration in Comfort Related to Surgery, Other: ORIF Right hip 05/30 Goals & Outcomes: Comfort Pt will report acceptable level of comfort & pain control, Pt will state importance of adhering to pain strategy regime, Pt will demonstrate necessary skills to manage pain, Non-verbal indicators will indicate comfort/pain control Interventions Implemented: Comfort Assess pain using appropriate pain scale/tools, Assess aggravating factors & prevent them accordingly, Assess alleviating factors & promote them accordingly Goals/Interventions, Comfort Yes Comfort, Problem Start 06/06/2023 23:03 Reviewed plan with, Comfort Patient Patient Progression, Comfort Plan Initiation Comfort, Problem Ongoing Yes . Alteration in Musculoskeletal : Alteration in Musculoskeletal Func/new 06/06/2023 23:00 EDT Alteration in Musculoskeletal Related to Fracture, Orthopedic Procedure, Other: ORIF Right hip 05/30 Goals & Outcomes, Musculoskeletal Affected extremity will maintain color/motion/sensation, Pt able to perform ADL's to best of ability, Pt demonstrates precautions/exercise/ transfers per protocol, Pt will ambulate safely with assistive device, Pt will be free from complications of immobility, Pt will demonstrate ability to participate in ADL's, Pt will report acceptable level of comfort/painrelief Interventions, Musculoskeletal Monitor patients ambulation status, monitor Color/Motion/Sensation, Assist with repositioning, Encourage deep breathing & coughing exercises, Notify MD immediately if tissue perfusion deteriorates, Obtain assistive devices as needed, Teach & Encourage use of Incentive spirometer, Teach Pt/caregiver on ADL's & adaptive equipment, Teach Pt/caregiver on exercises, Teach pt/caregiver on use of pain scale, Teach Pt/caregiver complications of immobility BH Goals/Interventions, Musculoskeletal Yes Musculoskeletal, Problem Start 05/31/2023 3:19 Reviewed Plan with, Musculoskeletal Patient Patient Progression, Musculoskeletal Pt progressing according to plan . Nursing Data Vital Signs : VITAL SIGNS SECTION 06/07/2023 5:26 EDT Early Warning Score 5.00 06/07/2023 5:26 EDT Temperature 97.6 DegF Temperature Route Oral Pulse Rate 56 bpm Respiratory Rate 18 br/min Systolic Blood Pressure 125 mm Hg Diastolic Blood Pressure 54 mm Hg L Blood pressure sites Arm, left Mean Arterial Pressure 78 mm Hg Pulse Pressure 71 mm Hg Oxygen Saturation 94 % Liters per Minute 2 L/min Mode of Delivery (Oxygen) Nasal cannula . Narrative/Incidental Patient is A/Ox 2-3. VVS. Patient is assist x 2 to BSC. CTA but dim at the bases. No complaints of CP or SOB. Patient had no compalints of pain with this nurse. Telemetry in place showing NSR/ Fracisco to the 50's. Patient tolerated all medications whole. Patient voiding with premafit in place withoutissue. Last BM on 06/05. +BS abdomen is SRNT. No complaints of N/V. Left hip aquacel intact with old staining. +CMS. +PP, +PF, +DF. C-boots on. All safety measures in place. Bed in lowest position withwheels locked. Call verde on bed and within reach and frequent, purposeful rounding completed. Patient resting comfortably in bed, rise and fall of chest noted. No further issues at this time. . Discharge Information Rehabilitation Discharge : Rehab Discharge Index 06/06/2023 14:26 EDT Walker: distance < 10 06/05/2023 12:09 EDT Comments on treatment indicated adls funclt mob safety pt edu endurnace Full chart review completed Yes Hospital course 83 F s/p mechanical fall resulting in R hip and wrist pain. CT scan of the pelvis revealing a right femoral subcapital fracture. Now s/p ORIF on 05/3106/05/2023 8:52 EDT Walker: distance < 10 06/04/2023 9:21 EDT Walker: distance < 10 06/02/2023 7:57 EDT Comments on treatment indicated 83 F s/p mechanical fall resulting in R hip and wrist pain. CT scan of the pelvis revealing a right femoral subcapital fracture. Now s/p ORIF on 05/31. PT for strength, endurance, ambulation, balance, stairs. Rec home vs post acute rehab pending progress Distance pt will ambulate 25 ft Full chart review completed Yes Hospital course Hospital course Other findings see comment Plan of care PT Gait training, Transfer training, Therapeutic exercise, Functional Activities, Balance training * Ben Soares RN: PERFORM Event Display: Progress Note Hospital Authored Date: Patient desating to 88% overnight and placed on 2L of Oxygen via NC. New Metoprolol dose given at 2100 and later in shift patient's HR fracisco in the 50's sustained. Patient arousable and asymptomatic otherwise. * Francie Castrejon MD: PERFORM Event Display: Progress Note Hospital Authored Date: Patient: ??ZITA PHELAN ? Age:??83 Years?Sex:??Female?:??1940?? Subjective No acute overnight events This a.m. metoprolol was held??per parameters for HR<55 Later on patient went into A-fib with RVR with HR in 140s,??responded to IV metoprolol Also increased p.o. metoprolol to 50 twice daily Creatinine went up from 0.9-1.3,??500 cc fluids ordered Saturating well on room air today Review of Systems Negative except as noted above Objective Vital Signs?? Temperature: 98.4 DegF (06/06/23 15:17:00) Temperature Route: Oral (06/06/23 15:17:00) Pulse Rate:??112 bpm??High (06/06/23 15:17:00) Respiratory Rate: 18 br/min (06/06/23 15:17:00) Systolic Blood Pressure: 134 mm Hg (06/06/23 15:17:00) Diastolic Blood Pressure: 73 mm Hg (06/06/23 15:17:00) Blood pressure sites: Arm, left (06/06/23 15:17:00) Mean Arterial Pressure: 93 mm Hg (06/06/23 15:17:00) Pulse Pressure: 61 mm Hg (06/06/23 15:17:00) Oxygen Saturation: 94 % (06/06/23 15:17:00) Liters per Minute: 1 L/min (06/06/23 04:13:00) Mode of Delivery (Oxygen): Room air (06/06/23 15:17:00) Early Warning Score: 4 (06/06/23 15:19:28) ? Intake/Output? 05/29 20:45 06/05 07:00 06/04 07:00 06/03 07:00 06/02 07:00 ?? 06/05 16:09 06/05 16:09 06/05 06:59 06/04 06:59 06/03 06:59 Intake ? 3028.8 ?360 ?727.9 ?552.1 ?100 Output ? 4550 ?300 ? 1025 ?425 ?900 Net Total ?-1521.2 ? 60 ? -297.1 ?127.1 ? -800 ? Urine Count ?7 ?1 ?0 ?2 ?2 Diaper Count ?1 ?0 ?1 ?0 ?0 ? 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 Extremities: No edema, peripheral pulses palpable. Results Recent Labs CHEM GENERAL Sodium 138 mmol/L ()?? 06/06/2023 01:24 Potassium 4.5 mmol/L ()?? 06/06/2023 01:24 Chloride 105 mmol/L ()?? 06/06/2023 01:24 Bicarbonate Level 22 mmol/L ()?? 06/06/2023 01:24 Anion Gap 11 ()?? 06/06/2023 01:24 Glucose Level 159 mg/dL (High)?? 06/06/2023 01:24 Glucose, POC 190 mg/dL (High)?? 06/06/2023 11:10 BUN 32 mg/dL (High)?? 06/06/2023 01:24 Creatinine-Blood 1.3 mg/dL (High)?? 06/06/2023 01:24 Estimated GFR Creatinine 41 ML/MIN/1.73 M2 ()?? 06/06/2023 01:24 Calcium 8.2 mg/dL (Low)?? 06/06/2023 01:24 ? Assessment/Plan Assessment:? 83-year-old female patient with past medical history of COPD, chronic tobacco use, atrial fibrillation s/p permanent pacemaker implantation currently on Pradaxa who presents to our facility as a transfer from [facility] for orthopedic procedure. Patient had a mechanical fall and presents to [facility] for right hip pain, she was found to have subcapital fracture of the right femur and the plan was for ORIF at [facility] however the hospitalization course was complicated by acute hypoxia which was believed secondary to pneumonia, she was treated empirically by antibiotics.Due to underlying presumed COPD, anesthesia at [facility] recommended transfer for higher levelof care therefore, she was transferred to our facility for orthopedic evaluation. underwent ORIF on05/31. ?? Hospital course complicated by by AHRF on 06/01 requiring transfer to [facility]. ?? Acute hypoxic respiratory failure (J96.01):??. COPD with acute exacerbation (J44.1):?She developed hypoxia at [facility] prior to the transfer. ??She has presumed COPD however she is not on chronic inhalers. ??She still smokes severe, she has a history of 60 pack years smoking history. ??Prior CT in 2016 showing centrilobular emphysema. Initially found to have normal procalcitonin with low clinical/laboratory suspicion for infection ??Bedside POCUS showing good LV squeeze with normal sized IVC ??Developed acute hypoxic respiratory failure on postop day 1 requiring transfer to [facility] ??CTA negative for pulmonary embolism but showing left lower lobe collapse concerning for atelectasis. PLAN - Continue Zosyn/doxycycline due to infiltrates on CTA ??-??Currently on??room air, goal SpO2??88-92 ??- critical care consulted on 06/01: no need for bronchoscopy at this time ??- will continue Solumedrol 40 mg Q12 hours for now, ??- continue scheduled DuoNeb and hypertonic saline treatments ??-aggressive chest PT - with respiratory bed, [place] - hold off diuresis as she is dry on exam ?? Hip fracture (S72.009A):??Mechanical fall leading to subcapital fracture of right femur. ??She was seen and evaluated by orthopedic and the plan was for ORIF at [facility] however the hospitalization course was complicated by acute hypoxia. ??-ORIF of proximal femur performed on 06/01/2023 ??-Will continue to monitor ?? DEON (acute kidney injury) (N17.9):??Baseline creatinine at 0.9 Currently at 1.3 500 cc LR ordered ?? Abnormal weight loss (R63.4):??Reports of approximately 10 pounds of unintentional weight loss overthe past couple months. ??-Further evaluation as outpatient. ?? Paroxysmal atrial fibrillation (I48.0):??Went into A-fib RVR with HR in the 140s, responded well toIV metoprolol ??-continue Pradaxa ??-Increased p.o. metoprolol to 50 twice daily ?? Anemia (D64.9):??Hemoglobin is 9-10. ??Iron studies concerning for iron deficiency anemia versus anemia of chronic illness ??-Follow-up hepcidin level ??-Outpatient anemia workup ?? Memory impairment (R41.3):??Suspected mild cognitive impairment versus mild dementia. ??-Further workup as outpatient. ?? VTE Prophylaxis:??pradaxa ?VTE Prophylaxis Assessment:??VTE Prophylaxis Ordered ?? Code Status:??full ?Order Code Status:??Code Status Ordered ?? Ongoing Medical Necessity:??DEON,??monitoring A-fib RVR, pending insurance Auth ?? Discharge Planning:? Consult note * Arjun Pratt MD: VERIFY, SIGN, PERFORM, MODIFY, MODIFY Event Display: Consultation Note Authored Date: [id number] Patient: ZITA PHELAN Age: 83 years Sex: Female : 1940 Associated Diagnoses: None Author: Arjun Pratt MD Visit Information Reason for consultation: hypoxemia, possible need for bronchoscopy Requesting Physician: Marika Pratt MD 83-y/o F h/o COPD/ emphysema, ongoing tobacco use, atrial fibrillation s/p permanent pacemaker implantation currently on Pradaxa transferred from [facility] for orthopedic evaluation and treatment of an osteoporotic fracture of right hip, Garden grade I closed subcapital fracture of proximal end of right femur after a mechanical fall. Her hospitalization course was complicated by acute hypoxia which wasbelieved secondary to LLL pneumonia, she is receiving empiric antibiotics. Pertinent exam: elderly, frail, slightly confused and getting easily agitated, on NIV at the time of evaluation, conversant but with increased work of breathing, diminished left chest movement, numerous rales R>> L with decreased left base air entry and dullness to palpation. Tachycardic, no mumurs, rubs or gallops. Abdomen, soft, nontender, no pedal/ pitting edema. Labs/ Imaging : reviewed Bedside thoracic ultrasound performed - small to moderate pleural effusion, simple anechoic fluid with areas of atelectatic/ consolidated left lung. Cardiac activity - normal - vigorous Assessment: Acute (on likely chronic) hypoxemic respiratory failure due to Acute exacerbation of COPD LLL pneumonia and left smal to moderate pleural effusion Mechanical fall leading to Fracture of right femur now s/p OR pinning Anxiety and delirium Tobacco use disorder Paroxysmal atrial fibrillation Frailty and protein calorie malnutrition Chronic anemia Recommendations: - no need for bronchoscopy at this time. Given she is able to cough and expectorate, would transition as possible from NIV to HFNC with goal O2 sats 88- 92%. I suspect she has chronic hypoxemia looking at her CT angiogram performed today (negative for PE, but with very severe emphysema). Continue toencourage incentive spirometry every 2-4 hours while awake. - schedule CPT with DuoNeb and hypertonic saline treatments every 4-6 hrs to increase clearance of secretions - albuterol nebulized PRN - would trial gentle diuresis with 10-20 mg iv furosemide - can resume her anticoagulation (Pradaxa) as no procedure is planned for now. repeat CXR in AM, possible repeat lung ultrasound to evaluate pleural effusion in 24-48 hrs - continue metoprolol for rate control - pain control with tylenol primarily and low dose narcotic if needed - agree with antibiotics, add azithromycin/ doxycycline for atypical coverage - thank you for the consultation. Recommendations communicated at the time of the evaluation. The ICU team will sign off, but can be easily be reached out 28/08 at pager #[phone], for questions or concerns regarding clinical deterioration. FULL CODE Critical Care Time = 40 minutes (This represents the total time I personally spent evaluating, managing and providing care exclusive of time spent for separately billable procedures.) Note * Joy Chan RN: PERFORM Event Display: Discharge/Transfer Note Hospital Authored Date: [id number] Nursing Discharge Note Entered On: 06/07/2023 12:45 EDT Performed On: 06/07/2023 12:45 EDT by Joy Chan RN Nursing Discharge Note 2 Discharge Time : 06/07/2023 12:45 EDT Discharge Level of Care at Discharge : Inpatient Rehab Facility/Unit Discharge Nursing Homes/Rehab Facilities : [facility] [phone] Patient Left Unit Via : Ambulance Patient Accompanied Off Unit with : Ambulance/Chair Van Personnel Handover Given to Transport Personnel : Yes DC Instructions Provided & Signed by Pt : No Patient Understands D/C Instructions : Yes Patient Instructions Discharge Signed : No Did Pt have Specialty Bed or Wound Vac : No Joy Chan RN - 06/07/2023 12:45 EDT * Francie Castrejon MD: PERFORM Event Display: Discharge/Transfer Note Hospital Authored Date: Patient: ??TAPAN, ZITA ? Age:??83 Years?Sex:??Female?:??1940?? Patient Information Discharge Location: [facility] Primary Care Physician: Jennifer Frost DO Admit Date/Time: 05/30/23 20:45 Discharge Disposition Discharge Disposition: Long-Term Facility/Rehab Discharge Diagnosis Acute hypoxic respiratory failure (J96.01) COPD with acute exacerbation (J44.1) Hip fracture (S72.009A) DEON (acute kidney injury) (N17.9) Abnormal weight loss (R63.4) Paroxysmal atrial fibrillation (I48.0) Anemia (D64.9) Fall (W19.XXXA) Memory impairment (R41.3) _ Discharge Medications Amlodipine (amLODIPine 5 mg oral tablet)?5?Milligram?1?tablet?By Mouth?Daily Amoxicillin-Clavulanate (Augmentin 875 mg-125 mg oral tablet)?1?tab(s)?By Mouth?Every 12 hours?for 7?Days Aspirin (Aspir 81 Oral Enteric Coated Tablet)?1?tab(s)?81?Milligram?By Mouth?Daily dabigatran (dabigatran 150 mg oral capsule)?1?capsule?150?Milligram?By Mouth?2 times a day Lorazepam (lorazepam 1 mg oral tablet)?1?tab(s)?1?Milligram?By Mouth?3 times a day Metoprolol (metoprolol 50 mg oral tablet)?50?Milligram?By Mouth?2 times a day?for 30?Days PredniSONE (predniSONE 10 mg oral tablet)?See Instructions?4 tablet By Mouth 2 times a day for 2 days, then 2 tablets by mouth 2 times a day for 2 days, then 1 tablet by mouth 2 times a day for2 days and then stop Rosuvastatin (rosuvastatin 20 mg oral tablet)?See Instructions?20 mg By Mouth Daily ? Medications Started augmentin prednisone taper Medications Discontinued none Doses Changed metoprolol Allergies Allergies ?(Active and Proposed Allergies Only) NKA? (Severity: Unknown severity, Onset: Unknown) ? [facility]u Hospital Course ??see below Objective Assessment and Plan Assessment:? 83-year-old female patient with past medical history of COPD, chronic tobacco use, atrial fibrillation s/p permanent pacemaker implantation currently on Pradaxa who presents to our facility as a transfer from [facility] for orthopedic procedure. Patient had a mechanical fall and presents to [facility] for right hip pain, she was found to have subcapital fracture of the right femur and the plan was for ORIF at [facility] however the hospitalization course was complicated by acute hypoxia which was believed secondary to pneumonia, she was treated empirically by antibiotics.Due to underlying presumed COPD, anesthesia at [facility] recommended transfer for higher levelof care therefore, she was transferred to our facility for orthopedic evaluation. underwent ORIF on05/31. Hospital course complicated by by AHRF on 06/01 requiring transfer to [facility]. ?? Acute hypoxic respiratory failure (J96.01):??. COPD with acute exacerbation (J44.1):? She developed hypoxia at [facility] prior to the transfer. She has presumed COPD however she is not on chronic inhalers. She still smokes severe, she has a history of 60 pack years smoking history. Prior CT in 2016 showing centrilobular emphysema. Initially found to have normal procalcitonin withlow clinical/laboratory suspicion for infection Bedside POCUS showing good LV squeeze with normal sized IVC Developed acute hypoxic respiratory failure on postop day 1 requiring transfer to [facility] CTA negative for pulmonary embolism but showing left lower lobe collapse concerning for atelectasis. Critical care consulted on 06/01: no need for bronchoscopy at this time Was started on??Zosyn/doxycycline due to infiltrates on CTA. Finished 5 days of doxycycline Plan - Continue augmentin to finish a 10 day course -??Currently on??2l NC,wean off as able for??goal SpO2??88-92 - Continue prednisone taper as prescribed - Aggressive chest PT ?? Hip fracture (S72.009A):?? Mechanical fall leading to subcapital fracture of right femur. ??She was seen and evaluated by orthopedic and the plan was for ORIF at [facility] however the hospitalization course was complicated by acute hypoxia. ??-ORIF of proximal femur performed on 06/01/2023 ??-OOB with PT, FFTDWB ??- Encourage IS/ deep breathing ??- DVT prophylaxis: Dabigatran ??- Apply ice to right??thigh PRN for swelling ??- Aquacel dressing to remain in place ??- DC planning:? - The patients Aquacel dressing is to remain until POD#7 and then may be removed and DSDs applied ? - Cristo are to remain in place until POD#14, these may be removed at rehab or by home health aide, an appointment with [facility] office can also be made if needed. ? - The patient may follow-up with Dr. Hardwick at the [facility] office in 4-6 weeks. The patient may call [phone] to schedule a follow-up appointment. ? DEON (acute kidney injury) (N17.9):??Baseline creatinine at 0.9 Currently at 1.2, improved with IV fluids and po Encourage po intake PCP to ctm ?? Abnormal weight loss (R63.4):??Reports of approximately 10 pounds of unintentional weight loss overthe past couple months. ??-Further evaluation as outpatient. ?? Paroxysmal atrial fibrillation (I48.0):??Went into A-fib RVR with HR in the 140s, responded well toIV metoprolol, rate controlled prior to discharge ??-continue Pradaxa ??-Increased p.o. metoprolol to 50 twice daily on discharge ?? Anemia (D64.9):??Hemoglobin is 9-10. ??Iron studies concerning for iron deficiency anemia versus anemia of chronic illness ??-Outpatient anemia workup ?? Memory impairment (R41.3):??Suspected mild cognitive impairment versus mild dementia. ??-Further workup as outpatient. ?? Patient was discharged to rehab ? Vital Signs?? Temperature: 97.5 DegF (06/07/23 07:12:00) Temperature Route: Oral (06/07/23 07:12:00) Pulse Rate: 60 bpm (06/07/23 08:23:00) Respiratory Rate: 17 br/min (06/07/23 07:12:00) Systolic Blood Pressure:??157 mm Hg??High (06/07/23 08:23:00) Systolic Blood Pressure:??157 mm Hg??High (06/07/23 08:23:00) Diastolic Blood Pressure: 83 mm Hg (06/07/23 08:23:00) Diastolic Blood Pressure: 83 mm Hg (06/07/23 08:23:00) Blood pressure sites: Arm, left (06/07/23 07:12:00) Mean Arterial Pressure: 108 mm Hg (06/07/23 07:12:00) Pulse Pressure: 74 mm Hg (06/07/23 07:12:00) Oxygen Saturation:??93 %??Low (06/07/23 07:12:00) Liters per Minute: 2 L/min (06/07/23 07:12:00) Mode of Delivery (Oxygen): Nasal cannula (06/07/23 07:12:00) Early Warning Score: 5 (06/07/23 08:25:18) ? . 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 Extremities: No edema, peripheral pulses palpable. Surgical Procedures Percutaneous Pinning Hip 06/01/2023 13:18 Consultants ortho Pending Results Add On Lab Order ordered on 05/31/2023 Add On Lab Order ordered on 06/01/2023 Add On Lab Order ordered on 06/02/2023 Blood Gas Arterial ordered on 06/02/2023 Blood Gas Arterial ordered on 06/02/2023 COVID-19 (2019 Novel Coronavirus) PCR ordered on 06/02/2023 Follow-Up Appointments Added Follow Up ?Time Frame ?Comments Santosh DO, Jennifer K?1 to 2 weeks Post Discharge Care Activity: ??OOB as Jerry Minimal Weight Bearing Leg may rest foot flat on floor, no more than weight of leg\ r ?? NO HOPPING!!!! If cannot mobilize TDWB, OK to adv to pwb as needed to achieve mobility ?? Wound Care: ??Wound Site: Hip aquacel- leave in place 5days Daily for Other Yes ?? Discharge ?06/07/23 10:27:00 EDT Home Health Face to Face ^HomeHealthFTF Results Discharge Labs BLOOD COUNT & DIFF WBC 6.5 k/mm3 ()?? 06/04/2023 03:42 RBC 2.77 m/mm3 (Low)?? 06/04/2023 03:42 Hgb 8.1 Gm/dL (Low)?? 06/04/2023 03:42 Hct 26.0 % (Low)?? 06/04/2023 03:42 MCV 93.9 femtoliters ()?? 06/04/2023 03:42 MCH 29.2 pg ()?? 06/04/2023 03:42 MCHC 31.2 g/dL (Low)?? 06/04/2023 03:42 Platelet Count 249 k/mm3 ()?? 06/04/2023 03:42 RDW-SD 48.9 femtoliters (High)?? 06/04/2023 03:42 MPV 9.6 femtoliters ()?? 06/04/2023 03:42 Nucleated RBC (Automated) 0.0 #/100 WBC'S ()?? 06/04/2023 03:42 Abs. NRBC 0.0 k/mm3 ()?? 06/04/2023 03:42 Hemoglobin (POC) POC Cartridge 8.5 Gm/dL (Low)?? 06/02/2023 08:50 Hematocrit (POC) POC Cartridge 25 % (Low)?? 06/02/2023 08:50 ?? BLOOD GAS pH (POC) POC Cartridge 7.35 (Low)?? 06/02/2023 08:50 pCO2 (POC) POC Cartridge 46.9 mm Hg (High)?? 06/02/2023 08:50 pO2 (POC) POC Cartridge 55 mm Hg (Low)?? 06/02/2023 08:50 Estimated Bicarbonate (POC) POC Cart 26.1 mmol/L ()?? 06/02/2023 08:50 % O2 Sat Arterial (POC) POC Cartridge 87 % (Low)?? 06/02/2023 08:50 FIO2 (POC) POC Cartridge 100 % ()?? 06/02/2023 08:50 Base Excess (POC) POC Cartridge 1 ()?? 06/02/2023 08:50 pH 7.35 (Low)?? 06/02/2023 11:16 pCO2 49 mm Hg (High)?? 06/02/2023 11:16 pO2 64 mm Hg (Low)?? 06/02/2023 11:16 Bicarbonate, Estimated 26 mmol/L ()?? 06/02/2023 11:16 Specimen Type - Blood Gas ARTERIAL ()?? 06/02/2023 11:16 Percent O2 (FIO2) 80 ()?? 06/02/2023 11:16 ? CARDIAC Nt-Probnp 4157 pg/mL (High)?? 06/02/2023 00:29 High Sensitivity Troponin (HSTnT) 26 ng/L (High)?? 05/31/2023 04:13 ?? CHEM GENERAL Sodium 135 mmol/L ()?? 06/07/2023 01:03 Potassium 4.7 mmol/L ()?? 06/07/2023 01:03 Chloride 102 mmol/L ()?? 06/07/2023 01:03 Bicarbonate Level 24 mmol/L ()?? 06/07/2023 01:03 Anion Gap 9 ()?? 06/07/2023 01:03 Sodium (POC) POC Cartridge 136 mmol/L ()?? 06/02/2023 08:50 Potassium (POC) POC Cartridge 4.1 mmol/L ()?? 06/02/2023 08:50 Glucose Level 142 mg/dL (High)?? 06/07/2023 01:03 Glucose (POC) POC Cartridge 153 (High)?? 06/02/2023 08:50 Glucose, POC 127 mg/dL (High)?? 06/07/2023 07:15 BUN 31 mg/dL (High)?? 06/07/2023 01:03 Creatinine-Blood 1.2 mg/dL (High)?? 06/07/2023 01:03 Estimated GFR Creatinine 44 ML/MIN/1.73 M2 ()?? 06/07/2023 01:03 Calcium 8.4 mg/dL (Low)?? 06/07/2023 01:03 Ionized Calcium (POC) POC Cartridge 1.19 mmol/L ()?? 06/02/2023 08:50 Phosphorus 3.3 mg/dL ()?? 06/04/2023 03:42 Magnesium 1.9 mg/dL ()?? 06/04/2023 03:42 Protein, Total 5.3 Gm/dL (Low)?? 06/03/2023 00:07 Albumin 2.9 Gm/dL (Low)?? 06/03/2023 00:07 AG Ratio 1.2 ()?? 06/03/2023 00:07 Alkaline Phosphatase 60 units/L ()?? 06/03/2023 00:07 AST (SGOT) 18 units/L ()?? 06/03/2023 00:07 ALT (SGPT) 7 units/L ()?? 06/03/2023 00:07 Bilirubin, Total 0.6 mg/dL ()?? 06/03/2023 00:07 Vitamin B12 Level 676 pg/mL ()?? 05/31/2023 04:13 Folic Acid Level 4.9 ng/mL ()?? 05/31/2023 04:13 Lactate 1.5 mmol/L ()?? 06/02/2023 09:54 Iron Level 20 mcg/dL (Low)?? 05/31/2023 04:13 Iron Binding Capacity, Unsaturated 237 mcg/dL ()?? 05/31/2023 04:13 Iron Binding Capacity, Estimated Total 257 mcg/dL ()?? 05/31/2023 04:13 % Iron Saturation 8 % (Low)?? 05/31/2023 04:13 Ferritin Level 71 ng/mL ()?? 05/31/2023 04:13 ?? ENDOCRINE/TUMOR MARKER TSH 1.11 uIU/mL ()?? 05/31/2023 04:13 ? HEME OTHER Hold Lavender Top SPECIMEN DISCARDED AFTER 24 HOURS. ()?? 06/07/2023 01:03 ? MISC. CHEMISTRY 25 OH-Vitamin D Level 24.0 ng/mL ()?? 05/31/2023 04:13 Procalcitonin 0.10 ng/mL ()?? 06/02/2023 09:54 ?? URINE OTHER Est Creatinine Clearance 43.13 mL/min ()?? 06/01/2023 02:33 ? 36??minutes spent on discharge * Ximena Verma RN: PERFORM, SIGN, VERIFY Event Display: Case Management Discharge Plan Authored Date: Patient: ZITA PHELAN Age: 83 years Sex: Female : 1940 Associated Diagnoses: None Author: Ximena Verma RN Discharge Plan Case Management Discharge Plan : Case Management Discharge Plan Data 06/07/2023 10:26 EDT Discharge Level of Care at Discharge Inpatient Rehab Facility/Unit Discharge Nursing Homes/Rehab Facilities [facility] [phone] Discharge Transportation Arranged Am Med Response [address] [facility] [phone] Discharge Arranged Transport Date/Time 06/07/2023 12:30 Mode of Transportation Arranged Ambulance Agency Sleep Lab Technician #1 Intake Service Categories #1 Occupational Therapy, Physical Therapy Service Comments #1 You are beind discharged to rehab at [facility] in [place]. Name of Person Notified of Transfer Patient * Joy Chan RN: PERFORM Event Display: Patient Education/Instruction Authored Date: Inpatient Adult Discharge Instructions. [address] [address] Name: ZITA PHELAN : 1940?? Visit: 05/30/2023 20:45?? Current Date: 06/07/2023 11:04 ?? Account: [id number]?? Inpatient Adult Discharge Instructions We would like to thank you for allowing us to assist you with your healthcare needs. The following includes patient education materials and information regarding your injury/illness. Our entire staffstrives to provide an excellent experience for our patients and their families. PLEASE ENSURE YOU FOLLOW-UP PER THE INSTRUCTIONS BELOW! ?? YOUR OPINION IS IMPORTANT TO US! Please complete the survey you may receive by mail or email. Your feedback will be used to make improvements to the healthcare experiences of our patients and their families. Surveys are administered by [employer] ?? If further treatment with your primary care physician or another doctor is recommended, it is important for you to keep the appointment. Call your primary care physician or return to the Emergency Department immediately if your condition worsens, fails to improve, or new symptoms develop. If you need to find a doctor, you can call [facility] Link for a referral at [phone] or toll free at [phone] ([phone]) or log in to [email or web address].. ?? [facility], in keeping with [facility] guidance, no longer requires face masks for staff, patientsor visitors in most situations. Similiar to time spent indoors at other locations, there is the chance that you were exposed to repiratory viruses during your time with us (such as flu or COVID-19). If you develop symptoms concerning for a viral respiratory infection, please seek testing (and treatment if indicated) from your medical provider or home test kit. ?? You can view and manage your care through the patient portal or by using a health care riki of your choosing. [employer] is a website that allows you to securely view your medical information including your hospital discharge summary, office visit summaries, medications and follow-up visits. You can also request appointments, renew medications, and request access to your medical information using a health care riki of your choosing, or just ask a question. You can enroll at [email or web address] or register during your next office visit. You have been discharged from [facility], Patient Care Unit: S3??. If you have any questions regarding these instructions, including results of studies pending, afteryou leave, please call us and we will be happy to assist you 28/08. [facility] Your Care Team Attending Physician Francie Castrejon MD?? Consulting Providers Francie Castrejon MD?? Discharging Providers Francie Castrejon MD Your Diagnosis Abnormal weight loss Acute hypoxic respiratory failure DEON (acute kidney injury) Anemia COPD with acute exacerbation Fall Garden grade I closed subcapital fracture of proximal end of right femur Hip fracture Memory impairment Osteoporotic fracture of right hip Paroxysmal atrial fibrillation Tests Performed Below is a partial list of the tests performed during your hospitalization. You may have had other tests and procedures not included in this list. Please discuss all test results with your provider. 25OH VITAMIN D ABG POC CARTRIDGE ART BLOOD GAS B12 Vitamin Level BASE EXCESS POC CARTRIDGE Basic Metabolic Panel CALCIUM IONIZED POC CART CBC Comprehensive Metabolic Panel Ferritin Folic Acid Level GLUCOSE POC GLUCOSE POC CARTRIDGE HEMATOCRIT POC CARTRIDGE HEMOGLOBIN POC CARTRIDGE High??Sensitivity??Troponin T HOLD LAVENDER TUBE Iron + Iron Binding Capacity Lactate Level Magnesium Level O2 PERCENT (POINT OF CARE) Phosphorus Level POTASSIUM POC CARTRIDGE PROBNP Procalcitonin Level SODIUM POC CARTRIDGE TSH CT Angio Chest CXR Portable PCXR XR C-Arm < 1 Hour XR Hip Comp 2 Views Right Add On Lab Order?? Blood Gas Arterial (ABG)?? COVID-19 (2019 Novel Coronavirus) PCR?? Primary Care Provider Jennifer Frost DO? Advance Directive Health Care Proxy on File Yes - Health Care Proxy Discharge Vitals Temperature: 97.6 DegF Height: 0 cm Pulse Rate: 60 bpm Weight: 58.9 kg Respiratory Rate: 18 br/min Body Mass Index: 21.12 kg/m2 Systolic Blood Pressure:??162 mm Hg??High Body surface area: 1.65 Diastolic Blood Pressure: 61 mm Hg ?? Oxygen Saturation: 96 % ?? Studies Pending All studies ordered during this hospital stay have been completed unless listed below. Please discuss all pending results with your provider listed above in these instructions. ?? Add On Lab Order?? Blood Gas Arterial (ABG)?? COVID-19 (2019 Novel Coronavirus) PCR?? What to do next Instructions From Your Doctor ?? Orders??:OOB as Jerry ??Minimal Weight Bearing ??Leg ??may rest foot flat on floor, no more than weight of legNO HOPPING!!!! If cannot mobilize TDWB, OK to adv to pwb as needed to achieve mobility Care:Wound Site: Hip ??aquacel- leave in place 5days ??Daily for Other ??Yes? 06/07/23 10:27:00 EDT?? You Need to Schedule the Following Appointments Follow Up with??Jennifer Frost DO When:??Within 1 to 2 weeks Where: [address] [place] [address] [place] [address]- Discharge Medications TAPANZITA REDDY :1940 Visit Date:05/30/2023 Medications: Please continue your medications until treatment is completed or stopped by your provider. Medications not listed below should be discontinued. Discuss any questions related to medications with your provider. What How Much When Instructions Next Dose New Amoxicillin-Clavulanate (Augmentin 875 mg-125 mg oraltablet) 1 tab(s) Oral Every 12 hours Duration: 7 Days 06/07/23?? 9 pm New PredniSONE (predniSONE 10 mg oral tablet) See instructions 4 tablet By Mouth 2 times a day for 2 days, then 2 tablets by mouth 2 times a day for 2 days, then 1 tablet by mouth 2 times a day for 2 days and then stop ?? 06/08/23 per instruction Changed Metoprolol (metoprolol 50 mg oral tablet) 50 Milligram Oral Twice a day Duration: 30 Days 06/07/23?? 9 pm Changed Rosuvastatin (rosuvastatin 20 mg oral tablet) See instructions 20 mg By Mouth Daily ?? 06/08/23 Unchanged Amlodipine (amLODIPine 5 mg oral tablet) 1 tab(s) Oral Daily 06/08/23 Unchanged Aspirin (Aspir 81 Oral Enteric Coated Tablet) 1 tab(s) Oral Daily 06/08/23 Unchanged dabigatran (dabigatran 150 mg oral capsule) 1 capsule Oral Twice a day Pickup at [place] [id number] 06/07/23 Unchanged Lorazepam (lorazepam 1 mg oral tablet) 1 tab(s) Oral 3 times a day 06/07/23 3 pm Pharmacy Information [facility] [place] [facility]: [address], [place] [id number] [phone] ?? What When Comments Stop Taking Cefuroxime (cefuroxime 500 mg oral tablet) Prescription Given During Visit Amoxicillin-Clavulanate (Augmentin 875 mg-125 mg oral tablet) - 1 tablet, By Mouth, Every 12 hours,# 14 tablet, 0 Refills?? Metoprolol (metoprolol 50 mg oral tablet) - 50 mg, By Mouth, 2 times a day, # 60 capsule, 0 Refills?? PredniSONE (predniSONE 10 mg oral tablet) - , # 28 capsule, 0 Refills, 4 tablet By Mouth 2 times a day for 2 days, then 2 tablets by mouth 2 times a day for 2 days, then 1 tablet by mouth 2 times a day for 2 days and then stop?? Rosuvastatin (rosuvastatin 20 mg oral tablet) - , # 30 capsule, 0 Refills, 20 mg By Mouth Daily?? dabigatran (dabigatran 150 mg oral capsule) - 1 capsule = 150 mg, By Mouth, 2 times a day, # 60 capsule, 0 Refills, [facility] [place] [facility] [place] [address] [phone]?? Laboratory Results Below is a partial list of the most recent Laboratory test results done prior to this discharge. You may have had other tests and procedures not included in this list. Please discuss all test resultswith your provider. Est Creatinine Clearance - 43.13 mL/min (06/01/2023) 25OH VITAMIN D (05/31/2023) ???25 OH-Vitamin D Level - 24.0 ng/mL ABG POC CARTRIDGE (06/02/2023) ???pH (POC) POC Cartridge - 7.35???pCO2 (POC) POC Cartridge - 46.9 mm Hg???pO2 (POC) POC Cartridge - 55 mm Hg???Estimated Bicarbonate (POC) POC Cart - 26.1 mmol/L???% O2 Sat Arterial (POC) POC Cartridge - 87 %???Specimen Type - Blood Gas - ARTERIAL ART BLOOD GAS (06/02/2023) ???pH - 7.35???pCO2 - 49 mm Hg???pO2 - 64 mm Hg???Bicarbonate, Estimated - 26 mmol/L???Specimen Type - Blood Gas - ARTERIAL???Percent O2 (FIO2) - 80 B12 Vitamin Level (05/31/2023) ???Vitamin B12 Level - 676 pg/mL BASE EXCESS POC CARTRIDGE (06/02/2023) ???Base Excess (POC) POC Cartridge - 1 Basic Metabolic Panel (06/07/2023) ???Sodium - 135 mmol/L???Potassium - 4.7 mmol/L???Chloride - 102 mmol/L???Bicarbonate Level - 24 mmol/L???Anion Gap - 9???Glucose Level - 142 mg/dL???BUN - 31 mg/dL???Creatinine-Blood - 1.2 mg/dL???Estimated GFR Creatinine - 44 ML/MIN/1.73 M2???Calcium - 8.4 mg/dL CALCIUM IONIZED POC CART (06/02/2023) ???Ionized Calcium (POC) POC Cartridge - 1.19 mmol/L CBC (06/04/2023) ???WBC - 6.5 k/mm3???RBC - 2.77 m/mm3???Hgb - 8.1 Gm/dL???Hct - 26.0 %???MCV - 93.9 femtoliters???MCH - 29.2 pg???MCHC - 31.2 g/dL???Platelet Count - 249 k/mm3???RDW-SD - 48.9 femtoliters???MPV - 9.6femtoliters???Nucleated RBC (Automated) - 0.0 #/100 WBC'S???Abs. NRBC - 0.0 k/mm3 Comprehensive Metabolic Panel (06/03/2023) ???Sodium - 138 mmol/L???Potassium - 4.4 mmol/L???Chloride - 103 mmol/L???Bicarbonate Level - 26 mmol/L???Anion Gap - 9???Glucose Level - 100 mg/dL???BUN - 21 mg/dL???Creatinine-Blood - 1.1 mg/dL???Estimated GFR Creatinine - 48 ML/MIN/1.73 M2???Calcium - 7.7 mg/dL???Protein, Total - 5.3 Gm/dL???Albumin - 2.9 Gm/dL???AG Ratio - 1.2???Alkaline Phosphatase - 60 units/L???AST (SGOT) - 18 units/L???ALT (SGPT) - 7 units/L???Bilirubin, Total - 0.6 mg/dL Ferritin (05/31/2023) ???Ferritin Level - 71 ng/mL Folic Acid Level (05/31/2023) ???Folic Acid Level - 4.9 ng/mL GLUCOSE POC (06/07/2023) ???Glucose, POC - 127 mg/dL GLUCOSE POC CARTRIDGE (06/02/2023) ???Glucose (POC) POC Cartridge - 153 HEMATOCRIT POC CARTRIDGE (06/02/2023) ???Hematocrit (POC) POC Cartridge - 25 % HEMOGLOBIN POC CARTRIDGE (06/02/2023) ???Hemoglobin (POC) POC Cartridge - 8.5 Gm/dL High??Sensitivity??Troponin T (05/31/2023) ???High Sensitivity Troponin (HSTnT) - 26 ng/L HOLD LAVENDER TUBE (06/07/2023) ???Hold Lavender Top - SPECIMEN DISCARDED AFTER 24 HOURS. Iron + Iron Binding Capacity (05/31/2023) ???Iron Level - 20 mcg/dL???Iron Binding Capacity, Unsaturated - 237 mcg/dL???Iron Binding Capacity, Estimated Total - 257 mcg/dL???% Iron Saturation - 8 % Lactate Level (06/02/2023) ???Lactate - 1.5 mmol/L Magnesium Level (06/04/2023) ???Magnesium - 1.9 mg/dL O2 PERCENT (POINT OF CARE) (06/02/2023) ???FIO2 (POC) POC Cartridge - 100 % Phosphorus Level (06/04/2023) ???Phosphorus - 3.3 mg/dL POTASSIUM POC CARTRIDGE (06/02/2023) ???Potassium (POC) POC Cartridge - 4.1 mmol/L PROBNP (06/02/2023) ???Nt-Probnp - 4157 pg/mL Procalcitonin Level (06/02/2023) ???Procalcitonin - 0.10 ng/mL SODIUM POC CARTRIDGE (06/02/2023) ???Sodium (POC) POC Cartridge - 136 mmol/L TSH (05/31/2023) ???TSH - 1.11 uIU/mL Allergies (NKA means No Known Allergies) NKA Problems Active Problems??(2) AAA (abdominal aortic aneurysm)?? Tobacco abuse?? Education Materials Below is the list of Educational Leaflet Providered with your Discharge Instructions. [employer] Ignite Patient Education - Understanding Femur Fracture Open Reduction and Internal Fixation (ORIF)?? Valuables and Belongings I fully understand and agree that [facility] accepts no responsibility for all my personal property including clothing, toilet articles, radios, jewelry, dentures, hearing aids, rings, money, or any other property that is in my possession or is brought to me after admission. I understand certain valuables may be placed in a hospital safe for a short period of time. I understand that the hospital is not liable for loss or damage due to accident, fire, or other natural occurrence while said property is in the safe. I accept full responsibility for any personal property that I keep with me, and will not hold the hospital responsible in case of loss or disappearance. I acknowledge that i have been encouraged to send valuables and belongings home. ?? Review of Valuable and Belonging List: With patient, With witness Date for Pt to Sign Valuables/Belongings: 06/07/23 10:56:00 ?? Other Discharge Information ? Case Management Discharge Plan?? Discharge Plan?? Discharge Agency Information?? Discharge Level of Care at Discharge: Inpatient Rehab Facility/Unit Agency Sleep Lab Technician #1: Intake Discharge Transportation Arranged: [facility] [address] [facility] [address] [phone] Service Categories #1: Occupational Therapy, Physical Therapy Mode of Transportation Arranged: Ambulance Service Comments #1: You are beind discharged to rehab at [facility] in [place]. Discharge Arranged Transport Date/Time: 06/07/23 12:30:00 Name of Person Notified of Transfer: Patient Discharge Nursing Homes/Rehab Facilities: [facility] ??[phone] ? Pulmonary Rehab Status?? Pulmonary Rehab Discharge Status?? CPAP/BiPAP Mask Type: Full CPAP/BiPAP Mask Size: Small Respiratory Rate: 18 br/min ? Common Emergency Awareness Tips IS IT A STROKE? Act FAST and Check for these signs: FACE Does the face look uneven? ARM Does one arm drift down? SPEECH Does their speech sound strange? TIME Call at any sign of stroke ?? Heart Attack Signs Chest discomfort: Most heart attacks involve discomfort in the center of the chest and lasts more than a few minutes, or goes away and comes back. It can feel like uncomfortable pressure, squeezing, fullness or pain. Discomfort in upper body: Symptoms can include pain or discomfort in one or both arms, back, neck, jaw or stomach. Shortness of breath: With or without discomfort. Other signs: Breaking out in a cold sweat, nausea, or lightheaded. Remember, MINUTES DO MATTER. If you experience any of these heart attack warning signs, call to get immediate medical attention! ?? Smoking can increase your chances of developing chronic health problems and can cause harmful effects to other family members in your house. If you smoke, you are strongly encouraged to quit. Please call [facility] Link at [phone] or [phone] ([phone]) or log in to [email or web address] for referrals to smoking cessation programs. ?? 232 Suicide & Crisis Lifeline is available 28/08 if you or someone you know needs to find a reason to keep living. By calling 022 you'll be connected to a skilled, trained counselor at a crisis center in your area. INPATIENT DISCHARGE INSTRUCTIONS SIGNATURE ZITA WILKS Location:[facility] Registration Date and Time:05/30/2023 20:45 EDT Primary Care Physician: Jennifer Frost DO, Attending Physician: Francie Castrejon MD, I ZITA PHELAN, have received the above patient education materials/instructions and have verbalized understanding. If ambulance or transport services are being used I further acknowledge being givena choice of service. ?? If you need to contact me, please call me at this number: . Patient/Raw Hide Trimmer Name: Patient/Raw Hide Trimmer Signature: Relationship to Patient: Witness Name/Signature: Date: * Joy Chan RN: PERFORM, MODIFY Event Display: Patient Education/Instruction Authored Date: Inpatient Adult Discharge Instructions. [address] [address] Name: ZITA PHELAN : 1940?? Visit: 05/30/2023 20:45?? Current Date: 06/07/2023 10:35 ?? Account: [id number]?? Inpatient Adult Discharge Instructions We would like to thank you for allowing us to assist you with your healthcare needs. The following includes patient education materials and information regarding your injury/illness. Our entire staffstrives to provide an excellent experience for our patients and their families. PLEASE ENSURE YOU FOLLOW-UP PER THE INSTRUCTIONS BELOW! ?? YOUR OPINION IS IMPORTANT TO US! Please complete the survey you may receive by mail or email. Your feedback will be used to make improvements to the healthcare experiences of our patients and their families. Surveys are administered by [employer]. ?? If further treatment with your primary care physician or another doctor is recommended, it is important for you to keep the appointment. Call your primary care physician or return to the Emergency Department immediately if your condition worsens, fails to improve, or new symptoms develop. If you need to find a doctor, you can call [facility] Link for a referral at [phone] or toll free at [phone] ([phone]) or log in to [email or web address] ?? [facility], in keeping with [facility] guidance, no longer requires face masks for staff, patientsor visitors in most situations. Similiar to time spent indoors at other locations, there is the chance that you were exposed to repiratory viruses during your time with us (such as flu or COVID-19). If you develop symptoms concerning for a viral respiratory infection, please seek testing (and treatment if indicated) from your medical provider or home test kit. ?? You can view and manage your care through the patient portal or by using a health care riki of your choosing. [employer] is a website that allows you to securely view your medical information including your hospital discharge summary, office visit summaries, medications and follow-up visits. You can also request appointments, renew medications, and request access to your medical information using a health care riki of your choosing, or just ask a question. You can enroll at [email or web address] or register during your next office visit. You have been discharged from [facility], Patient Care Unit: SW7??. If you have any questions regarding these instructions, including results of studies pending, afteryou leave, please call us and we will be happy to assist you 28/08. [facility] Your Care Team Attending Physician Francie Castrejon MD?? Consulting Providers Francie Castrejon MD?? Discharging Providers Francie Castrejon MD Your Diagnosis Abnormal weight loss Acute hypoxic respiratory failure DEON (acute kidney injury) Anemia COPD with acute exacerbation [place] grade I closed subcapital fracture of proximal end of right femur Hip fracture Memory impairment Osteoporotic fracture of right hip Paroxysmal atrial fibrillation Tests Performed Below is a partial list of the tests performed during your hospitalization. You may have had other tests and procedures not included in this list. Please discuss all test results with your provider. 25OH VITAMIN D ABG POC CARTRIDGE ART BLOOD GAS B12 Vitamin Level BASE EXCESS POC CARTRIDGE Basic Metabolic Panel CALCIUM IONIZED POC CART CBC Comprehensive Metabolic Panel Ferritin Folic Acid Level GLUCOSE POC GLUCOSE POC CARTRIDGE HEMATOCRIT POC CARTRIDGE HEMOGLOBIN POC CARTRIDGE High??Sensitivity??Troponin T HOLD LAVENDER TUBE Iron + Iron Binding Capacity Lactate Level Magnesium Level O2 PERCENT (POINT OF CARE) Phosphorus Level POTASSIUM POC CARTRIDGE PROBNP Procalcitonin Level SODIUM POC CARTRIDGE TSH CT Angio Chest CXR Portable PCXR XR C-Arm < 1 Hour XR Hip Comp 2 Views Right Add On Lab Order?? Blood Gas Arterial (ABG)?? COVID-19 (2019 Novel Coronavirus) PCR?? Primary Care Provider Jennifer Frost DO? Advance Directive Health Care Proxy on File Yes - Health Care Proxy Discharge Vitals Temperature: 97.5 DegF Height: 0 cm Pulse Rate: 60 bpm Weight: 58.9 kg Respiratory Rate: 17 br/min Body Mass Index: 21.12 kg/m2 Systolic Blood Pressure:??157 mm Hg??High Body surface area: 1.65 Systolic Blood Pressure:??157 mm Hg??High ?? Diastolic Blood Pressure: 83 mm Hg ?? Diastolic Blood Pressure: 83 mm Hg ?? Oxygen Saturation:??93 %??Low ?? Studies Pending All studies ordered during this hospital stay have been completed unless listed below. Please discuss all pending results with your provider listed above in these instructions. ?? Add On Lab Order?? Blood Gas Arterial (ABG)?? COVID-19 (2019 Novel Coronavirus) PCR?? What to do next Instructions From Your Doctor ?? Orders??:OOB as Jerry ??Minimal Weight Bearing ??Leg ??may rest foot flat on floor, no more than weight of legNO HOPPING!!!! If cannot mobilize TDWB, OK to adv to pwb as needed to achieve mobility Care:Wound Site: Hip ??aquacel- leave in place 5days ??Daily for Other ??Yes? 06/07/23 10:27:00 EDT?? You Need to Schedule the Following Appointments Follow Up with??Jennifer Frost DO When:??Within 1 to 2 weeks Where: [address] [place] [address] [place] [address]- Discharge Medications ZITA PHELAN :1940 Visit Date:05/30/2023 Medications: Please continue your medications until treatment is completed or stopped by your provider. Medications not listed below should be discontinued. Discuss any questions related to medications with your provider. What How Much When Instructions Next Dose New Amoxicillin-Clavulanate (Augmentin 875 mg-125 mg oraltablet) 1 tab(s) Oral Every 12 hours Duration: 7 Days 06/07/23?? 9pm New PredniSONE (predniSONE 10 mg oral tablet) See instructions 4 tablet By Mouth 2 times a day for 2 days, then 2 tablets by mouth 2 times a day for 2 days, then 1 tablet by mouth 2 times a day for 2 days and then stop ?? 06/08/23?? per instruction Changed Metoprolol (metoprolol 50 mg oral tablet) 50 Milligram Oral Twice a day Duration: 30 Days 06/07/23?? 9pm Changed Rosuvastatin (rosuvastatin 20 mg oral tablet) See instructions 20 mg By Mouth Daily ?? 06/08/23 Unchanged Amlodipine (amLODIPine 5 mg oral tablet) 1 tab(s) Oral Daily 06/08/23 Unchanged Aspirin (Aspir 81 Oral Enteric Coated Tablet) 1 tab(s) Oral Daily 06/08/23 Unchanged dabigatran (dabigatran 150 mg oral capsule) 1 capsule Oral Twice a day Pickup at [facility] 06/07/23 9 pm Unchanged Lorazepam (lorazepam 1 mg oral tablet) 1 tab(s) Oral 3 times a day ?? 3pm Pharmacy Information [facility]: [address] [place] [address] [phone] ?? What When Comments Stop Taking Cefuroxime (cefuroxime 500 mg oral tablet) Prescription Given During Visit Amoxicillin-Clavulanate (Augmentin 875 mg-125 mg oral tablet) - 1 tablet, By Mouth, Every 12 hours,# 14 tablet, 0 Refills?? Metoprolol (metoprolol 50 mg oral tablet) - 50 mg, By Mouth, 2 times a day, # 60 capsule, 0 Refills?? PredniSONE (predniSONE 10 mg oral tablet) - , # 28 capsule, 0 Refills, 4 tablet By Mouth 2 times a day for 2 days, then 2 tablets by mouth 2 times a day for 2 days, then 1 tablet by mouth 2 times a day for 2 days and then stop?? Rosuvastatin (rosuvastatin 20 mg oral tablet) - , # 30 capsule, 0 Refills, 20 mg By Mouth Daily?? dabigatran (dabigatran 150 mg oral capsule) - 1 capsule = 150 mg, By Mouth, 2 times a day, # 60 capsule, 0 Refills, [facility] [address] [place] [address] [phone]?? Laboratory Results Below is a partial list of the most recent Laboratory test results done prior to this discharge. You may have had other tests and procedures not included in this list. Please discuss all test resultswith your provider. Est Creatinine Clearance - 43.13 mL/min (06/01/2023) 25OH VITAMIN D (05/31/2023) ???25 OH-Vitamin D Level - 24.0 ng/mL ABG POC CARTRIDGE (06/02/2023) ???pH (POC) POC Cartridge - 7.35???pCO2 (POC) POC Cartridge - 46.9 mm Hg???pO2 (POC) POC Cartridge - 55 mm Hg???Estimated Bicarbonate (POC) POC Cart - 26.1 mmol/L???% O2 Sat Arterial (POC) POC Cartridge - 87 %???Specimen Type - Blood Gas - ARTERIAL ART BLOOD GAS (06/02/2023) ???pH - 7.35???pCO2 - 49 mm Hg???pO2 - 64 mm Hg???Bicarbonate, Estimated - 26 mmol/L???Specimen Type - Blood Gas - ARTERIAL???Percent O2 (FIO2) - 80 B12 Vitamin Level (05/31/2023) ???Vitamin B12 Level - 676 pg/mL BASE EXCESS POC CARTRIDGE (06/02/2023) ???Base Excess (POC) POC Cartridge - 1 Basic Metabolic Panel (06/07/2023) ???Sodium - 135 mmol/L???Potassium - 4.7 mmol/L???Chloride - 102 mmol/L???Bicarbonate Level - 24 mmol/L???Anion Gap - 9???Glucose Level - 142 mg/dL???BUN - 31 mg/dL???Creatinine-Blood - 1.2 mg/dL???Estimated GFR Creatinine - 44 ML/MIN/1.73 M2???Calcium - 8.4 mg/dL CALCIUM IONIZED POC CART (06/02/2023) ???Ionized Calcium (POC) POC Cartridge - 1.19 mmol/L CBC (06/04/2023) ???WBC - 6.5 k/mm3???RBC - 2.77 m/mm3???Hgb - 8.1 Gm/dL???Hct - 26.0 %???MCV - 93.9 femtoliters???MCH - 29.2 pg???MCHC - 31.2 g/dL???Platelet Count - 249 k/mm3???RDW-SD - 48.9 femtoliters???MPV - 9.6femtoliters???Nucleated RBC (Automated) - 0.0 #/100 WBC'S???Abs. NRBC - 0.0 k/mm3 Comprehensive Metabolic Panel (06/03/2023) ???Sodium - 138 mmol/L???Potassium - 4.4 mmol/L???Chloride - 103 mmol/L???Bicarbonate Level - 26 mmol/L???Anion Gap - 9???Glucose Level - 100 mg/dL???BUN - 21 mg/dL???Creatinine-Blood - 1.1 mg/dL???Estimated GFR Creatinine - 48 ML/MIN/1.73 M2???Calcium - 7.7 mg/dL???Protein, Total - 5.3 Gm/dL???Albumin - 2.9 Gm/dL???AG Ratio - 1.2???Alkaline Phosphatase - 60 units/L???AST (SGOT) - 18 units/L???ALT (SGPT) - 7 units/L???Bilirubin, Total - 0.6 mg/dL Ferritin (05/31/2023) ???Ferritin Level - 71 ng/mL Folic Acid Level (05/31/2023) ???Folic Acid Level - 4.9 ng/mL GLUCOSE POC (06/07/2023) ???Glucose, POC - 127 mg/dL GLUCOSE POC CARTRIDGE (06/02/2023) ???Glucose (POC) POC Cartridge - 153 HEMATOCRIT POC CARTRIDGE (06/02/2023) ???Hematocrit (POC) POC Cartridge - 25 % HEMOGLOBIN POC CARTRIDGE (06/02/2023) ???Hemoglobin (POC) POC Cartridge - 8.5 Gm/dL High??Sensitivity??Troponin T (05/31/2023) ???High Sensitivity Troponin (HSTnT) - 26 ng/L HOLD LAVENDER TUBE (06/07/2023) ???Hold Lavender Top - SPECIMEN DISCARDED AFTER 24 HOURS. Iron + Iron Binding Capacity (05/31/2023) ???Iron Level - 20 mcg/dL???Iron Binding Capacity, Unsaturated - 237 mcg/dL???Iron Binding Capacity, Estimated Total - 257 mcg/dL???% Iron Saturation - 8 % Lactate Level (06/02/2023) ???Lactate - 1.5 mmol/L Magnesium Level (06/04/2023) ???Magnesium - 1.9 mg/dL O2 PERCENT (POINT OF CARE) (06/02/2023) ???FIO2 (POC) POC Cartridge - 100 % Phosphorus Level (06/04/2023) ???Phosphorus - 3.3 mg/dL POTASSIUM POC CARTRIDGE (06/02/2023) ???Potassium (POC) POC Cartridge - 4.1 mmol/L PROBNP (06/02/2023) ???Nt-Probnp - 4157 pg/mL Procalcitonin Level (06/02/2023) ???Procalcitonin - 0.10 ng/mL SODIUM POC CARTRIDGE (06/02/2023) ???Sodium (POC) POC Cartridge - 136 mmol/L TSH (05/31/2023) ???TSH - 1.11 uIU/mL Allergies (NKA means No Known Allergies) NKA Problems Active Problems??(2) AAA (abdominal aortic aneurysm)?? Tobacco abuse?? Education Materials Below is the list of Educational Leaflet Providered with your Discharge Instructions. [employer] Patient Education - Understanding Femur Fracture Open Reduction and Internal Fixation (ORIF)?? Valuables and Belongings I fully understand and agree that [facility] accepts no responsibility for all my personal property including clothing, toilet articles, radios, jewelry, dentures, hearing aids, rings, money, or any other property that is in my possession or is brought to me after admission. I understand certain valuables may be placed in a hospital safe for a short period of time. I understand that the hospital is not liable for loss or damage due to accident, fire, or other natural occurrence while said property is in the safe. I accept full responsibility for any personal property that I keep with me, and will not hold the hospital responsible in case of loss or disappearance. I acknowledge that i have been encouraged to send valuables and belongings home. ?? Review of Valuable and Belonging List: With patient Date for Pt to Sign Valuables/Belongings: 06/06/23 05:30:00 ?? Other Discharge Information ? Case Management Discharge Plan?? Discharge Plan?? Discharge Agency Information?? Discharge Level of Care at Discharge: Inpatient Rehab Facility/Unit Agency Sleep Lab Technician #1: Intake Discharge Transportation Arranged: [facility] [address] [facility] [address] [phone] Service Categories #1: Occupational Therapy, Physical Therapy Mode of Transportation Arranged: Ambulance Service Comments #1: You are beind discharged to rehab at [facility] in [place]. Discharge Arranged Transport Date/Time: 06/07/23 12:30:00 Name of Person Notified of Transfer: Patient Discharge Nursing Homes/Rehab Facilities: [facility] ??[phone] ? Pulmonary Rehab Status?? Pulmonary Rehab Discharge Status?? CPAP/BiPAP Mask Type: Full CPAP/BiPAP Mask Size: Small Respiratory Rate: 17 br/min ? Common Emergency Awareness Tips IS IT A STROKE? Act FAST and Check for these signs: FACE Does the face look uneven? ARM Does one arm drift down? SPEECH Does their speech sound strange? TIME Call at any sign of stroke ?? Heart Attack Signs Chest discomfort: Most heart attacks involve discomfort in the center of the chest and lasts more than a few minutes, or goes away and comes back. It can feel like uncomfortable pressure, squeezing, fullness or pain. Discomfort in upper body: Symptoms can include pain or discomfort in one or both arms, back, neck, jaw or stomach. Shortness of breath: With or without discomfort. Other signs: Breaking out in a cold sweat, nausea, or lightheaded. Remember, MINUTES DO MATTER. If you experience any of these heart attack warning signs, call to get immediate medical attention! ?? Smoking can increase your chances of developing chronic health problems and can cause harmful effects to other family members in your house. If you smoke, you are strongly encouraged to quit. Please call [facility] Link at [phone] or [phone] ([phone]) or log in to [email or web address] for referrals to smoking cessation programs. ?? 445 Suicide & Crisis Lifeline is available 28/08 if you or someone you know needs to find a reason to keep living. By calling 537 you'll be connected to a skilled, trained counselor at a crisis center in your area. INPATIENT DISCHARGE INSTRUCTIONS SIGNATURE PAGE ZITA PHELAN Location:[facility] Registration Date and Time:05/30/2023 20:45 EDT Primary Care Physician: Jennifer Frost DO, Attending Physician: Francie Castrejon MD, I ZITA PHELAN, have received the above patient education materials/instructions and have verbalized understanding. If ambulance or transport services are being used I further acknowledge being givena choice of service. ?? If you need to contact me, please call me at this number: . Patient/Raw Hide Trimmer Name: Patient/Raw Hide Trimmer Signature: Relationship to Patient: Witness Name/Signature: Date: * Joy Chan RN: PERFORM Event Display: Patient Education Leaflets Authored Date: [id number] Understanding Femur Fracture Open Reduction and Internal Fixation (ORIF) ?? [id number] Understanding Femur Fracture Open Reduction and Internal Fixation (ORIF) Open reduction and internal fixation (ORIF) puts the pieces of a broken bone back together so they can heal. Open reduction means the bones are put back in place during a surgery through a cut (incision). Internal fixation means that special hardware is used to hold the bone pieces together. This helps the bone heal correctly. The procedure is done by an orthopedic surgeon. This is a doctor with special training in treating bone, joint, and muscle problems. Flexible nails are one type of internal fixation. How does a femur fracture happen? The femur is the long, thick bone in the upper part of your leg (thigh). Different kinds of injury,such as a car accident, sports injury, or fall, can cause the femur to break (fracture) into two ormore pieces. In some cases, the bone may break but the pieces are still lined up correctly. Or, thepieces may not line up correctly. This is called a displaced fracture. ?? Why is femur fracture ORIF done? This type of injury needs ORIF to repair. Without ORIF, your broken femur may not heal normally. You are likely to need ORIF if: ??? You have a displaced fracture ??? Part of your femur broke throughthe skin ??? Your femur broke into several pieces ?? How is a femur fracture ORIF done? The surgery is done by an orthopedic surgeon. The surgery can be done in several ways. The surgeon will make a cut (incision) through the skin and muscles of your thigh. The surgeon puts the pieces of your femur back in place. This is the reduction. Then special screws, plates, wires, or pins are used to hold the bone pieces together. This is the fixation. A special metal carla may be put through th e middle of the bone if you have a fracture in the middle of your femur. The carla screws into the bone at both ends. ?? What are the risks of femur fracture ORIF? All surgery has risks. The risks of femur fracture ORIF include: ??? Infection ??? Bleeding ??? Nerve damage ??? Bone healing out of line ??? Blood clots ??? Fat tissue passes into the bloodstream and blocks a blood vessel (fat embolism) ??? Skin irritation from the hardware ??? Problems from anesthesia ??? Need for more surgery Your risks vary based on your age and general health. For example, if you are a smoker or if your bones are weak (low bone density), you may have a higher risk of certain problems. People with poorlycontrolled diabetes may also have a higher risk of problems. Talk with your healthcare provider about which risks apply most to you. ?? Last Reviewed Date: 2021 ?? 8488-0076 [employer]. All rights reserved. This information is not intended as a substitute for professional medical care. Always follow your healthcare professional's instructions. ?? Patient Care team information Care Team Personnel Name: Basil Angel RN Position: [facility] RN Member Role: Primary Care Nurse Name: Danay Yadav RN Position: S RN Member Role: Primary Care Nurse Name: Jennifer Frost DO Position: S Physician (General Medicine) Member Role: PCP Address: Address: [address] [place] [id number] Name: Jovana Soto RN Position: [facility] RN Member Role: Primary Care Nurse Name: Joy Chan RN Position: [facility] RN Member Role: Primary Care Nurse Name: Jacquelin Young Position: [facility] RN Member Role: Primary Care Nurse Name: Adelia Meza RN Position: [facility] RN Member Role: Primary Care Nurse Name: Evelia Sherwood RN Position: [facility] RN Member Role: Primary Care Nurse Name: Hannah Aldana RN Position: [facility] RN Member Role: Primary Care Nurse Care Team Related Persons Name: KIARA THOMPSON
--- NOTE | 2023-07-03 15:06 | PHA.MEDREC ---
Pharmacy Consult ? Medication Reconciliation Pharmacy has completed the medication reconciliation. Patient states that they stopped taking the aspirin 81 mg after an MD told them that it was strange for them to be on both ASA 81 mg and Pradaxa together a few weeks ago. Therefore, patient states the only blood thinner they are on is Pradaxa.
[2023-07-03] MEDS: Albuterol/Iprat 2.5/0.5MG 3 ML AMPUL.NEB INHALE ×2 (15:19→19:46)
[2023-07-03] MEDS: Nicotine 21 MG PATCH.TD24 TRANSDERMA (15:44)
[2023-07-03] MEDS: Azithromycin 500 MG in 0.9 % Sodium Chloride 250 ML 125 MG IV (15:45)
[2023-07-03] MEDS: 0.9 % Sodium Chloride Flush 3 ML SYRINGE IVFLUSH (15:45)
--- NOTE | 2023-07-03 15:52 | PC.NURSE ---
Assumed care of patient, patient agitated climbing out of bed stating she is going home. Patient able to be redirected and reminded that she will be staying in the hospital tonight,
[2023-07-03] MEDS: guaiFENesin 200 MG/10 ML 10 ML LIQUID PO ×2 (16:23→22:53)
--- NOTE | 2023-07-03 17:09 | MHC.EDTECH ---
pt was found incontinent of urine (leaking from purewick), katie care was done, clean linen given, call verde within reach, rn aware
[2023-07-03] MEDS: cefTRIAXone sodium 1 GM in 0.9 % Sodium Chloride 50 ML IV (18:39)
--- NOTE | 2023-07-03 19:24 | PC.NURSE ---
this rn assumed care of pt, pt a&ox4, respirations even and unlabored. pt noted to have IV line infiltrated. IV removed and 22G placed in right wrist.
[2023-07-03] MEDS: methylPREDNISolone Sod Succ 40 MG/ML VIAL IVPUSH (22:10)
[2023-07-03] MEDS: Metoprolol Tartrate 50 MG TABLET PO (22:10)
[2023-07-03] MEDS: Dabigatran Etexilate Mesylate 150 MG CAPSULE PO (22:10)
--- NOTE | 2023-07-03 22:12 | PC.NURSE ---
pt medicated per mar, tolerated well with water.
--- NOTE | 2023-07-03 22:39 | PC.NURSE ---
report given to Elizabeth LAURENT in overflow
--- NOTE | 2023-07-03 22:48 | PC.NURSE ---
assumed care at 2248
[2023-07-03] MEDS: LORazepam 1 MG TABLET PO (22:53)
--- NOTE | 2023-07-03 22:56 | PC.NURSE ---
Addendum entered by Kirill Jacobs RN 07/04/23 01:20: correction 4 liters Original Note: pt requested ativam and cough syrup. pt alert to self. MC at 3liters, bed alarmed for safety
--- NOTE | 2023-07-03 23:55 | PC.NURSE ---
pt oob to the BR with walker and standby assist, tolerated well
[2023-07-04] VITALS (47 sets, daily range): BP systolic 105–223; BP diastolic 45–108; PULSE 58–99; RESP 16–25; TEMP 32.1–37.8; O2SAT 90–98; BMI 19.5
--- NOTE | 2023-07-04 | ECG_ITS ---
Test Reason : hypoxia Blood Pressure : / mmHG Vent. Rate : 077 BPM Atrial Rate : 077 BPM P-R Int : 180 ms QRS Dur : 088 ms QT Int : 418 ms P-R-T Axes : 062 050 060 degrees QTc Int : 473 ms Normal sinus rhythm Minimal voltage criteria for LVH, may be normal variant ( Sokolow-Guzman ) Septal infarct , age undetermined Abnormal ECG No previous ECGs available Referred By: Trudy Silva Electronically Signed By:ESTEFANIA LOPEZ
[2023-07-04] MEDS: 0.9 % Sodium Chloride Flush 3 ML SYRINGE IVFLUSH ×4 (00:26→22:23)
[2023-07-04] MEDS: Rocuronium Bromide 50 MG/5 ML VIAL IVPUSH (00:55)
[2023-07-04] MEDS: Etomidate 20 MG/10 ML VIAL IVPUSH (00:55)
--- NOTE | 2023-07-04 01:05 | PC.NURSE ---
pt observed , pt unresponsive to staff, spo2 80% on 4 liters, increased to 5 liters , spo2 recheck pt lowest was 21%, resp therapy called stat, pt bagged with ambu bag, Charge nurse aware, staff came to overflow, pt was intubated by Dr. Diez, pt moved to ED Room 4
--- NOTE | 2023-07-04 01:11 | PC.NURSE ---
At 0055, t/w and MD Diez at bedside due to decreased O2 saturations reported by primary RN Kirill. Pt found to be unresponsive in bed, being ventilated with a BVM by MEHRAN Roy. Pt noted to have a strong radial pulse. Pt intubated by MD Diez, medicated with Etomidate 20 mg and Rocc 50 mg. 7.5 ETT, 3 @ the lip. VS @ the time: 190/84, 92, 100% while being in the ventilated. Pt moved into ED room 4 for further monitoring/care. Mnoique LAURENT assuming care.
--- NOTE | 2023-07-04 01:19 | W.ED.CONS.HO ---
Consult Details Consult Details: Approximate of 01:00, the patient's nurse from over full called and stated that the patient's oxygen saturation dropped to below 50%, patient became unresponsive and they need to start ventilated in the patient with an Ambu bag. -patient unresponsive, early admitted for to exacerbation of chronic obstructive airway disease, UTI and hypoxia. -patient needed to be intubated. -nasogastric tube was inserted -patient had pulse a whole time -patient was discussed with the hospitalist and acetaldehyde converter operator. Patient will be going to the ICU. Procedures Intubation Intubation Type:: Endotracheal Tube Insertion Intubation Date:: 07/04/23 Intubation Time:: 01:00 sedative: Etomidate Mg Given: 20 paralytic: Rocuronium Mg Given: 50 Laryngoscope: Patsy ET Tube Size: 7.5 ET Tube Uncuffed: No Tube Secured Depth (cm): 23 Tube Secured Location: lips Tube Placement Confirmation: visualized tube passing through cords, equal breath sounds bilaterally and no breath sounds over epigastrium Patient Tolerated Procedure: well Intubation Complications: none
[2023-07-04] MEDS: propofoL 1,000 MG/100 ML VIAL 10.44 MG IVCONT (01:34)
--- NOTE | 2023-07-04 01:41 | PC.NURSE ---
Assumed care of this Pt at 0110. Pt intubated. 2nd IV line established. Propofol started per APR. Temp sensing 16F f/c placed, draining clear yellow urine. Dr. Diez at bedside, placed NG tube to right nare. Pt hypertensive 223/108.
--- NOTE | 2023-07-04 01:49 | PM.CCN ---
Critical Care Event Note Summary Date of Service: 07/04/23 Code activated: No Narrative: This case had a high probability of a clinically significant, sudden, or life threatening deterioration of this patient's condition which required my full and direct attention, intervention and personal management.
--- NOTE | 2023-07-04 01:57 | P.CONCC_ITS ---
History of Present Illness Data of Consult Service Date: 07/04/23 Requesting physician: Venu Boss Primary Care Provider: Unknown Physician HPI Reason for consult: Hypoxia ?The patient is a 83-year-old female with a past medical history of hypertension, COPD, paroxysmal atrial fibrillation ( on Pradaxa ), AAA and recent subcapital fracture of right femur status post ORIF at [facility],? she also had recent admission for pneumonia and treated with 5 days of doxycycline.? ? She presented to the emergency department on 07/03/2023 after being in a found patient to be hypoxic in the 80s on room air. ? She was admitted to Hospital Medicine with COPD exacerbation in acute UTI she was started on azithromycin and ceftriaxone. Tonight, patient became acutely hypoxic,? O2 saturations dropped to 50% and patient became unresponsive and require ventilation via Ambu bag.? ED physician intubated patient at? bedside.? ? Patient will be? transferred to ICU for management of acute hypoxic respiratory failure requiring mechanical? ventilation Review of Systems 2 Review of Systems: Yes unobtainable due to endotracheal tube and Unobtainable due to mental condition [facility] Past Medical History Medical History Femur fracture Afib Chronic anticoagulation HTN (hypertension) COPD (chronic obstructive pulmonary disease) Surgical History Surgical History S/P ORIF (open reduction internal fixation) fracture Social History Social History Alcohol intake: current Alcohol intake frequency: 0-2 drinks per day Patient Tobacco Use Status: Never used Tobacco Advance Directives Date on File: 07/04/23 Meds Allergies Allergy/AdvReac Type Severity Reaction Status Date / Time No Known Allergies Allergy Verified 07/03/23 10:26 Active Medications: Current Medications Acetaminophen (Acetaminophen 325 Mg Tablet) 650 mg PO Q6H PRN PRN Reason: Pain, Mild (Pain Scale 1-3) Albuterol Sulfate (Albuterol Sulfate (0.083%) 2.5 Mg/3 Ml Vial.Neb) 2.5 mg INHALE Q2H PRN PRN Reason: Shortness of Breath/Wheezing Albuterol/Ipratropium (Albuterol/Iprat 2.5/0.5mg 3 Ml Ampul.Neb) 3 ml INHALE RQ4H WHILE AWAKE [facility] Last Admin: 07/03/23 19:46 Dose: 3 ml Amlodipine Besylate (Amlodipine Besylate 5 Mg Tablet) 5 mg PO DAILY [facility]; Protocol Atorvastatin Calcium (Atorvastatin Calcium 80 Mg Tablet) 80 mg PO DAILY [facility] Dabigatran (Dabigatran Etexilate Mesylate 150 Mg Capsule) 150 mg PO BID [facility] Last Admin: 07/03/23 22:10 Dose: 150 mg Guaifenesin (Guaifenesin 200 Mg/10 Ml 10 Ml Liquid) 10 ml PO Q6H PRN PRN Reason: Cough Last Admin: 07/03/23 22:53 Dose: 10 ml Azithromycin 500 mg/ Sodium (Chloride) 250 mls @ 125 mls/hr IV Q24H [facility] Last Infusion: 07/03/23 18:39 Dose: Infused Ceftriaxone Sodium 1 gm/ (Sodium Chloride) 50 mls @ 100 mls/hr IV Q24H [facility] Last Infusion: 07/03/23 19:09 Dose: Infused Propofol (Diprivan) 1,000 mg in 100 mls @ 0 mls/hr IVCONT .Q0M [facility]; Protocol Last Admin: 07/04/23 01:34 Dose: 30 mcg/kg/min, 10.44 mls/hr Norepinephrine Bitartrate (Levophed) 8 mg in 250 mls @ 0 mls/hr IV .Q0M [facility]; Protocol Lorazepam (Lorazepam 1 Mg Tablet) 1 mg PO DAILY PRN PRN Reason: Anxiety Last Admin: 07/03/23 22:53 Dose: 1 mg Magnesium Hydroxide (Milk Of Magnesia 30 Ml Oral.Susp) 30 ml PO DAILY PRN PRN Reason: Constipation Methylprednisolone Sodium Succinate (Methylprednisolone Sod Succ 40 Mg/Ml Vial) 40 mg IVPUSH Q12H [facility] Last Admin: 07/03/23 22:10 Dose: 40 mg Metoprolol Tartrate (Metoprolol Tartrate 50 Mg Tablet) 50 mg PO BID [facility]; Protocol Last Admin: 07/03/23 22:10 Dose: 50 mg Nicotine (Nicotine 21 Mg Patch.Td24) 21 mg TRANSDERMA DAILY [facility] Last Admin: 07/03/23 15:44 Dose: 21 mg Ondansetron HCl (Ondansetron Hcl 4 Mg/2 Ml Vial) 4 mg IVPUSH Q8H PRN PRN Reason: Nausea and Vomiting Sodium Chloride (0.9 % Sodium Chloride Flush 3 Ml Syringe) 3 ml IVFLUSH QSHIFT [facility] Last Admin: 07/04/23 00:26 Dose: 3 ml Home Medications ?Medication ?Instructions ?Recorded ?Confirmed ?Last Taken ?Type dabigatran etexilate 150 mg capsule 150 mg PO BID 07/03/23 07/03/23 07/02/23 History lorazepam 1 mg tablet 1 mg PO DAILY PRN Anxiety 07/03/23 07/03/23 07/02/23 History metoprolol tartrate 50 mg tablet 50 mg PO BID 07/03/23 07/03/23 07/02/23 History rosuvastatin 20 mg tablet 20 mg PO DAILY 07/03/23 07/03/23 07/02/23 History Physical Exam 2 Vital Signs: Vital Signs: Last Vital Signs Temp 98.8 F 07/03/23 22:09 Pulse 72 07/04/23 01:34 Resp 18 07/04/23 01:34 BP 179/72 H 07/04/23 01:34 Pulse Ox 97 07/04/23 01:34 O2 Del Method Nasal Cannula 07/03/23 22:09 O2 Flow Rate 2 07/03/23 22:09 FiO2 40 07/04/23 01:24 Oxygen Flow Rate 4 07/03/23 10:22 BMI result Body Mass Index 20.0 ?General:? Intubated ?HEENT:? Head is normocephalic, atraumatic, pupils equal round reactive to light accommodation bilaterally.? Buccal mucosa is dry, Neck is supple ?Cardiac:? AFIB to Normal Sinus. no murmurs rubs or gallops. ?Pulmonary:? Diffuse wheezes, No rales or rhonchi. On vent ?Abdomen:? ?Abdomen soft, non-tender, non-distended. Normal bowel sounds. No pulsatile mass. No hepatosplenomegaly. ?Musculoskeletal:? Moving all 4 extremities randomly, there is no crepitus or tenderness.? The strength is 5/5 bilaterally and throughout all 4 extremities.? Gait not assessed at this point. ?Neurologic:?No focal deficits noted.Motor strength as above.?? ?Skin: sacral ulcer, skin dry Vascular:? 2+ pulses upper and lower extremities distally.? Results Labs 07/04/23 03:19 07/04/23 03:08 Labs: Short CBC 07/03/23 Range/Units 10:41 WBC 4.2 L (4.8-10.8) X10*3/uL Hgb 10.0 L (12.0-16.0) g/dl Hct 32.2 L (37.0-47.0) % Plt Count 420 H D (160-400) X10*3/uL BMP 07/03/23 10:41 Sodium 135 Potassium 4.3 Chloride 102 Carbon Dioxide 24 BUN 15 Creatinine 0.88 Calcium 8.9 Liver Function 07/03/23 Range/Units 10:41 Total Bilirubin 0.4 (0.0-1.0) mg/dL Direct Bilirubin 0.2 (0.0-0.5) mg/dL AST 19 (5-31) U/L ALT 9 (0-31) U/L Alkaline Phosphatase 100 (39-117) U/L Albumin 3.4 L (3.5-5.0) g/dL Urine 07/03/23 Range/Units 10:42 Urine Color Yellow Urine Appearance Cloudy Urine pH 5.5 (5.0-9.0) Ur Specific Ambler 1.015 (1.005-1.025) Urine Protein Trace (Neg-Trace) mg/dL Urine Glucose (UA) Negative (Negative) mg/dL Assessment and Plan (1) Acute hypoxic respiratory failure: Status: Acute (2) Acute UTI: Status: Acute (3) Acute exacerbation of chronic obstructive airways disease: Status: Acute (4) Elevated lactic acid level: Status: Acute Plan 83-year-old female with a past medical history of hypertension, COPD, paroxysmal atrial fibrillation ( on Pradaxa ), AAA and recent subcapital fracture of right femur status post ORIF and pneumonia who is initially was admitted for COPD exacerbation and acute UTI, now with acute respiratory failure requiring mechanical ventilation Plan: Neuro: No acute issues? Cardiac:?Elevated lactic:? patient does not have any signs or symptoms of severe septic shock, does have a known UTI.? White count is stable.? Will continue ceftriaxone and continue to trend lactic acid Pulmonary: ?Acute hypoxic respiratory failure: patient likely? had an aspiration event, but she? recently had subcapital fracture of right femur status post ORIF,? she is on anticoagulation with Pradaxa, PE less likely? but will obtain CTA due to sudden acute hypoxia.? Wean off vent as tolerated ?COPD exacerbation:? continue azithromycin, nebulizer treatment and steroids Renal:?No acute issues GI:?? ?No acute issues ID: ?[id number]? as a known UTI on ceftriaxone.? Continue ceftriaxone.? Cultures pending Heme/Onc:? No acute issues. Psych:? No acute issues. Miscellaneous:? No acute issues. Prophylaxis:? On Predaxa, ? no GI prophylaxis at this time CODE:? ? Full code Critical care time: X 60 minutes of critical care time ?Attempted to call family,? Pari Youssefjacoby, friend,? listed in the chart,? she reports she is 89 years old and should not be making decisions for patient From [facility] records Yandy Potter [phone] and Brittany [phone] Voicemail left to both numbers
[2023-07-04] MEDS: iohexoL 350 MG/ML 100 ML INFUS..BTL 65 ML IV (02:32)
[2023-07-04 02:34] LABS: Troponin-I High Sensitivity 23.1 ng/L (<3.5-17.0)
--- NOTE | 2023-07-04 02:41 | PC.NURSE ---
Report given to Alfa in ICU. Pt brought to CT and then transported to ICU with RT.
[2023-07-04 02:44] LABS: B Type Natriuretic Peptide 400 pg/mL (<100)
[2023-07-04 03:15] LABS: VBG Base Excess -3.1 mmol/L; VBG HCO3 19 mmol/L (22-26); VBG pCO2 26 mmHg; VBG pH 7.47 (7.32-7.43); VBG pO2 155 mmHg
[2023-07-04 03:25] LABS: Venous Blood Gas Refer to POC result
[2023-07-04 03:30] LABS: Hematocrit 28.6 % (37.0-47.0); Mean Corpuscular HGB Conc 31.5 g/dl (31.0-35.0); Mean Corpuscular Hemoglobin 29.2 pg (27.0-33.0); Mean Corpuscular Volume 92.9 fL (80.0-98.0); Mean Platelet Volume 8.8 fL (9.4-12.3); Platelet Count 379 X10*3/uL (160-400); Red Blood Count 3.08 X10*6/uL (4.20-5.50); Red Cell Distribution Width 16.3 % (11.0-16.0); White Blood Count 8.1 X10*3/uL (4.8-10.8)
[2023-07-04 03:40] LABS: Lactic Acid 3.8 mmol/L (0.5-2.0)
[2023-07-04 03:43] LABS: Alanine Aminotransferase 48 U/L (0-31); Albumin Level 3.2 g/dL (3.5-5.0); Alkaline Phosphatase 142 U/L (39-117); Anion Gap 15 (12-20); Aspartate Amino Transferase 120 U/L (5-31); Bilirubin Total 0.6 mg/dL (0.0-1.0); Blood Urea Nitrogen 19 mg/dL (9-16); Calcium 8.2 mg/dL (8.4-10.2); Carbon Dioxide 21 mmol/L (22-29); Chloride 102 mmol/L (96-108); Creatinine Clr Calc Pharmacy 39.9; Estimated Glomerular Filt Rate 55; Glucose Random 171 mg/dL (60-115); Magnesium 2.1 mg/dL (1.6-2.6); Phosphorus 3.9 mg/dL (2.7-4.5); Potassium 4.2 mmol/L (3.3-5.1); Sodium 134 mmol/L (135-145); Total Protein 6.3 g/dL (6.5-8.0)
[2023-07-04 03:44] LABS: D Dimer High Sensitivity 2339 NG/ML
[2023-07-04 03:55] LABS: Band Neutrophils Percent 9 % (3-5); Lymphocytes Absolute Manual 0.2 X10*3/uL (1.2-4.9); Lymphocytes Percent Manual 3 % (20-40); Neutrophils Absolute Manual 7.9 X10*3/uL (2.0-8.3); Neutrophils Percent Manual 88 % (45-73)
[2023-07-04 03:57] LABS: Acanthocytes 1+ (0-2) /OIF; Platelet Estimate NORMAL (NORMAL); Platelet Morphology Comment NORMAL; RBC Morphology NOTED; Schistocytes 1+ (0-2) /OIF; Tear Drop Cells 1+ (0-2) /OIF
[2023-07-04 03:58] LABS: Basophilic Stippling 1+ (0-2) /OIF; Hypochromasia 1+ (5-14) /OIF; Polychromasia 1+ (0-2) /OIF; Toxic Granulation PRESENT; Toxic Vacuolation PRESENT
[2023-07-04 05:30] LABS: Reflex Lactate? Lactic Acid Added
[2023-07-04] MEDS: Albumin Human 25 % 100 ML 133.33 ML IV (05:30)
[2023-07-04] MEDS: Pantoprazole Sodium 40 MG/10 ML VIAL IVPUSH (06:18)
[2023-07-04] MEDS: propofoL 1,000 MG/100 ML VIAL 6.96 MG IVCONT (06:18)
[2023-07-04 06:42] LABS: ~Lactic Acid-LAB USE ONLY 3.5 mmol/L (0.5-2.0)
--- NOTE | 2023-07-04 07:05 | HO.SKINPHOTO ---
Location: BL buttocks Category: PI Foam applied
[2023-07-04] MEDS: Albuterol/Iprat 2.5/0.5MG 3 ML AMPUL.NEB INHALE ×4 (07:50→18:55)
[2023-07-04] MEDS: Albumin Human 25 % 100 ML IV (08:11)
[2023-07-04] MEDS: methylPREDNISolone Sod Succ 40 MG/ML VIAL IVPUSH (08:14)
[2023-07-04] MEDS: Metoprolol Tartrate 50 MG TABLET PO ×2 (08:16→21:45)
[2023-07-04] MEDS: amLODIPine Besylate 5 MG TABLET PO (08:16)
[2023-07-04] MEDS: Nicotine 21 MG PATCH.TD24 TRANSDERMA (08:17)
[2023-07-04] MEDS: Chlorhexidine Gluc Oral Rinse 15 ML MOUTHWASH BUCCAL (08:17)
[2023-07-04] MEDS: Atorvastatin Calcium 80 MG TABLET PO (08:17)
[2023-07-04 08:20] LABS: Reflex Lactate? 2 Y
[2023-07-04 09:45] LABS: ~Lactic Acid-LAB USE ONLY 1.6 mmol/L (0.5-2.0)
[2023-07-04 09:57] LABS: Adenovirus PCR Not Detected (Not Detect.); Bordetella parapertussis PCR Not Detected (Not Detect.); Bordetella pertussis PCR Not Detected (Not Detect.); Chlamydia pneumoniae PCR Not Detected (Not Detect.); Coronavirus 229E PCR Not Detected (Not Detect.); Coronavirus HKU1 PCR Not Detected (Not Detect.); Coronavirus NL63 PCR Not Detected (Not Detect.); Coronavirus OC43 PCR Detected (Not Detect.); Human metapneumovirus PCR Not Detected (Not Detect.); Influenza A PCR Not Detected (Not Detect.); Influenza B PCR Not Detected (Not Detect.); Mycoplasma pneumoniae PCR Not Detected (Not Detect.); Parainfluenza 1 PCR Not Detected (Not Detect.); Parainfluenza 2 PCR Not Detected (Not Detect.); Parainfluenza 3 PCR Detected (Not Detect.); Parainfluenza 4 PCR Not Detected (Not Detect.); RSV PCR Not Detected (Not Detect.); Rhino/Enterovirus PCR Not Detected (Not Detect.)
--- NOTE | 2023-07-04 09:58 | MHC.CLN ---
RE: CONSULT PT IS INTUBATED AND SEDATED CURRENTLY NPO WITH NGT CLAMPED PT IS MODERATELY MALNOURISHED PT WITH MILDLY DEPLETED SUBCUTANEOUS FAT AND MUSCLE MASS WITH RECENT HOSPITALIZATION WITH R FEMUR FX S/P ORIF WITH INCREASED NUTRITION RISK R/T PRESSURE INJURY POSSIBLE EXTUBATION TODAY RECOMMEND ADDING INCREASED KCALS/PROTEIN TO PROMOTE WOUND HEALING FOLLOWING WITH TEAM FOR DIET ADVANCEMENT SEE ALSO FULL CLINICAL NUTRITION ASSESSMENT
[2023-07-04 11:27] LABS: SARS-CoV-2 PCR Not Detected (Not Detect.)
[2023-07-04] MEDS: Furosemide 40 MG/4 ML VIAL IVPUSH (11:45)
--- NOTE | 2023-07-04 12:34 | MHC.CM.PN ---
Addendum entered by Jia Painting 07/04/23 13:32: PCP is Dr Jennifer Frost. [facility] following for discharge. Original Note: IMM 07/04/23 Female 83 lives alone with assist from her INTERNATIONAL NURSE, Yandy. She has named Yandy as her HCP. Yandy was arranged by [facility] per pt report. Patient states that she is active with [facility]. A referral has been sent to resume services. [place] [facility] [place] + ORIF R Femur FX. Patient is A+OX3. She states that her INTERNATIONAL NURSE hours have increased by senior services. DP home with resumption of services pending PT eval, vs STR via BLS.
--- NOTE | 2023-07-04 14:18 | HO.WOUND ---
Wound Consult: Initial 83yr old?F admitted to [facility] [place] 07[place]03[place]23 - See progress notes and H&P for detailed history.? Wound consult placed for Buttock wound POA.? Patient recently extubated will defer to in person assessment requiring turning and repositioning until direct care team sees appropriate. Below details and topical recommendations are made after discussion with direct care nurse, Chart review and photo review. ? Sacrum Etiology: ?MASD with [place] and suspect pressure injury (will need to assess for pressure injury in person)?Present on Admission Wound Bed: appears to be partial thickness tissue loss however some slough is observed in photo will need in person review Drainage / Odor: unknown Edges: ? irregular Josseline wound: red pink tissue evidence of scar tissue noted Goals of Treatment: ? Triad to allow for moist wound healing and foam dressing to protect from friction Recommendations: 1. Turn and Reposition every 2 hours and as needed for patient comfort.? Use pillows or wedges to support off loading positions. 2. Off Load all bony prominences with use of pillows and heel boots if needed.? Apply Preventative foams where needed. ? 3. Monitor for incontinence and moisture control, use barrier creams when needed for prevention and treatment. 4. Provide adequate and supplemental nutrition.? 5. Order or Continue low air loss mattress. 6. When applicable maintain blood glucose levels per Providers order. 7. Sacrum - Off Load Pressure - Cleanse with PH balance spray or wipes, pat dry. ?Apply thin layer of Triad to wound bed. Do not remove all of paste between applications as this may cause further skin damage.? Cover with foam dressing to aid in off loading and protection from friction. Re-consult wound care Nurse for wound deterioration or wound changes.
[2023-07-04] MEDS: Acetaminophen 325 MG TABLET 650 MG PO (14:46)
--- NOTE | 2023-07-04 16:54 | PC.NURSE ---
Cortez removed 15:00. Pt due to void 21:00, Purewick in place. Education provided about bedrest today and pt should ring call verde for bed ma if able.
[2023-07-04] MEDS: Azithromycin 500 MG in 0.9 % Sodium Chloride 250 ML 125 MG IV (17:05)
[2023-07-04] MEDS: cefTRIAXone sodium 1 GM in 0.9 % Sodium Chloride 50 ML IV (18:05)
--- NOTE | 2023-07-04 18:19 | PC.NURSE ---
Assumed care of patient 0700 Patient follows commands and tracks voices, makes eye contact for ~3 seconds with Propofol gtt @20 sedation vacation started per MD 08:30 09:13 Pt awake, attempting to sit up in bed. PSV trial started 09:15. Vent settings PSV 8/5.0 28% 09:35 Pt extubated to HFNC 40L 32% Pt seen by case management and HCP form completed with patient.
[2023-07-04] MEDS: LORazepam 0.5 MG TABLET PO (21:56)
[2023-07-04] MEDS: hydrALAZINE HCl 20 MG/ML VIAL 10 MG IVPUSH (22:43)
[2023-07-04 23:55] LABS: ABG Base Excess -2.6 mmol/L; ABG HCO3 30 mmol/L (22-26); ABG pCO2 114 mmHg (32-45); ABG pH 7.03 (7.35-7.45); ABG pO2 115 mmHg (83-108)
[2023-07-05] VITALS (40 sets, daily range): BP systolic 83–199; BP diastolic 34–172; PULSE 60–117; RESP 18–26; TEMP 34.9–37.2; O2SAT 88–100; BMI 17.9
[2023-07-05] MEDS: propofoL 200 MG/20 ML VIAL 30 MG IVPUSH (00:11)
[2023-07-05] MEDS: Furosemide 40 MG/4 ML VIAL IVPUSH (00:15)
[2023-07-05 00:22] LABS: ABG Refer to POC result
--- NOTE | 2023-07-05 00:30 | P.PCNCC_ITS ---
Procedures Date of Service Date of Service: 07/05/23 <Trudy Silva NP - Last Filed: 07/05/23 00:34> 07/05/23 <Chris Rocha MD - Last Filed: 07/05/23 11:39> Intubation Intubation Comments: Patient progressively more aggressive, abusive to staff during the night. Require more O2 due to agitation. Later mental status change, patient obtunded with significant amount of frothy sputum an oral airway. Blood gas 7.03/114/115/30. Require emergent intubation. Emergent endotracheal intubation performed with 7.5-cuffed ET tube with glidescope visualization of the vocal cords with no immediate complications.? ET tube position verified on chest x- ray. <Trudy Silva NP - Last Filed: 07/05/23 00:34> Consent for Procedure: Emergent-no informed consent obtained <Trudy Silva NP - Last Filed: 07/05/23 00:34> Time out performed: Yes <Trudy Silva NP - Last Filed: 07/05/23 00:34> Sedative: propofol <Trudy Silva NP - Last Filed: 07/05/23 00:34> Mg given: 30 <KEVIN Estrada Last Filed: 07/05/23 00:34> Laryngoscope: fiber optic video scope <Trudy Silva NP - Last Filed: 07/05/23 00:34> ET tube size: 7.5 <Trudy Silva NP - Last Filed: 07/05/23 00:34> ET tube uncuffed: No <Trudy Silva NP - Last Filed: 07/05/23 00:34> Tube secured depth (cm): 23 <Trudy Silva NP - Last Filed: 07/05/23 00:34> Tube secured location: lips <KEVIN Estrada Last Filed: 07/05/23 00:34> Tube placement confirmation: visualized tube passing through cords <KEVIN Estrada Last Filed: 07/05/23 00:34> Patient tolerated procedure: well and no complications <KEVIN Estrada Last Filed: 07/05/23 00:34> Intubation complications: none <Trudy Silva NP - Last Filed: 07/05/23 00:34>
[2023-07-05] MEDS: propofoL 1,000 MG/100 ML VIAL 10.15 MG IVCONT (00:54)
[2023-07-05 01:54] LABS: MANUAL DIFF FLAG NO
[2023-07-05 01:56] LABS: Basophils Percent Auto 0.1 % (0-2); Hematocrit 28.9 % (37.0-47.0); Imm Gran Abs Auto 0.05 X10*3/uL (0.00-0.03); Imm Gran Pct Auto 0.4 % (0.0-0.4); Lymphocytes Absolute Auto 0.6 X10*3/uL (1.2-4.9); Lymphocytes Percent Auto 4.9 % (20-40); Mean Corpuscular HGB Conc 31.1 g/dl (31.0-35.0); Mean Corpuscular Hemoglobin 29.3 pg (27.0-33.0); Mean Corpuscular Volume 94.1 fL (80.0-98.0); Monocytes Absolute Auto 1.4 X10*3/uL (0.1-1.2); Monocytes Percent Auto 11.9 % (2-11); Neutrophils Absolute Auto 9.4 x10*3/uL (2.0-8.3); Neutrophils Percent Auto 82.7 % (45-73); Platelet Count 350 X10*3/uL (160-400); Red Blood Count 3.07 X10*6/uL (4.20-5.50); Red Cell Distribution Width 16.7 % (11.0-16.0); White Blood Count 11.4 X10*3/uL (4.8-10.8)
[2023-07-05 01:57] LABS: Venous Blood Gas Refer to POC result
[2023-07-05 02:00] LABS: VBG Base Excess 1.3 mmol/L; VBG HCO3 28 mmol/L (22-26); VBG pCO2 55 mmHg; VBG pH 7.31 (7.32-7.43); VBG pO2 71 mmHg
[2023-07-05 02:14] LABS: Anion Gap 18 (12-20); Blood Urea Nitrogen 22 mg/dL (9-16); Calcium 8.7 mg/dL (8.4-10.2); Carbon Dioxide 23 mmol/L (22-29); Chloride 102 mmol/L (96-108); Creatinine Clr Calc Pharmacy 32.6; Estimated Glomerular Filt Rate 45; Glucose Random 151 mg/dL (60-115); Magnesium 2.2 mg/dL (1.6-2.6); Potassium 4.7 mmol/L (3.3-5.1); Sodium 138 mmol/L (135-145)
--- NOTE | 2023-07-05 02:23 | PM.EVENT ---
Documented by User: Trudy Silva NP 07/05/23 02:23 Event Note Date of Service: 07/05/23 Event Note: Hypotension is related to vent sedation, No evidence of septic shock Time Spent With Patient Time: Total time managing care of this patient today ____ minutes. Documented by User: Chris Rocha MD 07/05/23 11:39 Event Note Date of Service: 07/05/23
--- NOTE | 2023-07-05 02:30 | PC.NURSE ---
CARE ASSUMED 7PM...PATIENT AWAKE..CONVERSING...VAGUE RESPONSES AT TIMES..ZAVALA...O2 325 AND 40 L/M VIA HI-IRTA CANNULA...DENIED DISTRESS..BP STABLE..NSR..OCASSIONAL PAC'S..PURWIK EXTERNAL CATHETER WITH YELLOW URINE...DENIED DISCOMFORT...OLD RIGHT HIP SURGICAL SITE DRY/INTACT...930PM REQUESTING HS ATIVAN... i'VE BEING TAKING IT FOR 20 YEARS ...ANXIOUS AND UPSET ABOUT NOT PREVIOUSLY BEING ORDERED...ATIVAN 0.5MG PO X1 ORDERED...ATIVAN AND HS LOPRESSOR GIVEN VIA NG-TUBE...TUBE FEEDS 20 CC/HR...10PM PATIENT WITH SEVERE AGITATION... I'VE GOT TO GET OUT OF HERE ....ATTEMPTED TO REORIENT PATIENT TO RECENT EVENTS/ENVIRONMENT... 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...BILATERAL WRIST RESTRAINTS APPLIED PER ICU BAR STEWARD...HI-RITA CANNULA REAPPLIED AND FIO2 TITRATED TO 50% AND 50 L/M....INCREASED O2 NEED 10:30PM TO 12AM...FIO2 TO 70%...PATIENT BECOMING INCREASINGLY SOMNOLENT TO LETHARGIC...RT AT BEDSIDE AND ABG'S DRAWN...pH 7.03 pco2 114 ..DECISION TO INTUBATE...PROPOFOL 30MG IV BOLUS X1 PER BAR STEWARD...INTUBATED 7.5 ETT 23CM...VCV VENT SUPPORT....PROPOFOL DRIP INITIATED AT 30 MCG/KG/MIN PER PROTOCOL...SUBSEQUENTLY WEANED TO 20 MCG/KG/MIN FOR MARGINAL BP WITH EFFECT....OG-TUBE TUBE FEEDS RESTARTED 20 CC/HR...LASIX 40MG IV X1 GIVEN POST-INTUBATION...PURWIK EXTERNAL CATHETER EMPTIED 700ml 1AM...NO FURTHER OUTPUT...BLADDER SCANNED 215AM FOR 7ml...vehicle controls engineer aware
[2023-07-05 06:06] LABS: ABG Base Excess 6.3 mmol/L; ABG HCO3 31 mmol/L (22-26); ABG pCO2 49 mmHg (32-45); ABG pH 7.41 (7.35-7.45); ABG pO2 63 mmHg (83-108)
[2023-07-05] MEDS: Pantoprazole Sodium 40 MG/10 ML VIAL IVPUSH (06:10)
[2023-07-05 06:32] LABS: ABG Refer to POC result
--- NOTE | 2023-07-05 07:00 | CA_ITS ---
Transthoracic Echocardiogram Patient (Last, First, Middle): Cordelia Norwood M Gender: Female Date of : 1940 Age: 83 Procedure Date: 07/05/2023 Procedure Type: Transthoracic Echocardiogram Location: ICU Height: 170.18 cm Weight: 51.71 kg BSA: 1.59 m2 Heart Rate: bpm BP: 137 / 47 mmHg Bilingual Branch Manager: NAT Referring MD: Chris Rocha MD Symptoms: dyspnea Study Quality: Fair ECG Rhythm: Sinus Conclusions: - The left ventricular systolic function is normal. The visually estimated ejection fraction is between 55-60%. - Evidence suggests grade II (moderate) diastolic dysfunction. - The apical inferior, basal inferior, and mid inferoseptal segments are akinetic. - There is moderate calcification of the aortic valve. There is mild to moderate aortic valve stenosis. - The inferior vena cava is mildly dilated and collapses less than 50% with inspiration. Findings Left Ventricle Normal left ventricular cavity size. There is mildly increased left ventricular wall thickness. The left ventricular systolic function is normal. The visually estimated ejection fraction is between 55-60%. There is no evidence of regional wall motion abnormalities. Evidence suggests grade II (moderate) diastolic dysfunction. Wall Motion Rest Echo Findings The apical inferior, basal inferior, and mid inferoseptal segments are akinetic. Right Ventricle Mildly increased right ventricular cavity size. There is a pacemaker wire seen in the right ventricle. Atria The left atrium is moderately dilated. The right atrium is normal in size. Aortic Valve There is moderate calcification of the aortic valve. There is mild to moderate aortic valve stenosis. The peak aortic velocity is 2.91 m/s with a calculated peak gradient of 34 mmHg. The mean gradient is 17 mmHg. The aortic valve area is 1.37 cm2. There is mild aortic valve regurgitation. Mitral Valve The mitral valve appears normal. There is mild mitral valve regurgitation. There is no mitral valve stenosis. Pulmonic Valve The pulmonic valve is likely normal. Tricuspid Valve There is mild tricuspid valve regurgitation. There is no evidence of pulmonary hypertension. Great Vessels The asc aorta and aortic arch are normal in size. Venous The inferior vena cava is mildly dilated and collapses less than 50% with inspiration. Pericardium/Pleural There is no evidence of pericardial effusion. Prior Study Comparison No prior study available for comparison. Measurements 2D Linear Measurements IVSd: 1.25 0.6-0.9/0.6-1.0 cm LVIDd: 3.96 3.9-5.3/4.2-5.9 cm LVIDd Index: 2.49 2.4-3.2/2.2-3.1 cm/m2 LVIDs: 2.16 2.0-3.6 cm LVPWd: 1.29 0.7-1.1 cm Ao Root: 3.80 2.1-3.5 cm LA Diam: 3.50 2.7-3.8/3.0-4.0 cm LAIDs Index: 2.20 1.5-2.3 cm/m2 LV Mass: 221.03 67-162/88-224 g LV Mass Index: 139.01 43-95/49-115 g/m2 LVOT Diam: 2.00 3.0+(-)1.3 cm 2D Systolic Function EF 4C: 58.10 >55% EF 2C: 53.10 >55% EF BiP: 54.30 >55% Mitral Valve MV Pk E: 1.00 MV PK A: 0.72 MV Decel Time: 187.00 E/A: 1.40 E'Lateral: 7.51 E'Medial: 5.66 E/E' Med: 17.70 E/E' Lat: 13.30 PHT: 55.00 MVA PHT: 4.00 Decel [place]: 5.36 Aortic Valve AoV Pk David: 2.91 AoV Mn David: 1.94 AoV VTI: 0.55 AoV Pk Grad: 34.00 Aov Mn Grad: 17.00 MISHEL Cont.VTI: 1.37 AI Pk David: 4.02 AI [place]: 2.73 LVOT LVOT Pk David: 1.24 LVOT Mn David: 0.85 LVOT VTI: 0.24 LVOT Pk Grad: 6.00 LVOT Mn Grad: 3.00 LVOT Diam: 2.00 LVOT Area: 3.14 Diastolic Function MV Pk E: 1.00 MV Pk A: 0.72 E/A: 1.40 E'Medial: 5.66 E/E' Med: 17.70 E' Laterial: 7.51 E/E' Lat: 13.30 Right Ventricle TAPSE (mm): 16.60 TVS' David: 15.60 Tricuspid Valve TR Pk David: 2.86 TR Pk Grad: 33.00 Great Vessels Aorta Ao Root-2D: 3.80 2.0-3.7 cm Sinus of Valsalva: 3.80 2.0-3.5 cm Ao Asc: 3.70 2.1-3.4 cm Ao Arch: 2.40 Updated in Other Vendor System with Status of Final Sandeep Sood MD electronically signed on 07/05/2023 12:02:57 PM with status of Final
[2023-07-05] MEDS: Albuterol/Iprat 2.5/0.5MG 3 ML AMPUL.NEB INHALE ×4 (07:40→19:31)
[2023-07-05] MEDS: Chlorhexidine Gluc Oral Rinse 15 ML MOUTHWASH BUCCAL (08:29)
[2023-07-05] MEDS: methylPREDNISolone Sod Succ 40 MG/ML VIAL IVPUSH (08:29)
[2023-07-05] MEDS: propofoL 1,000 MG/100 ML VIAL 6.77 MG IVCONT (09:18)
[2023-07-05] MEDS: Atorvastatin Calcium 80 MG TABLET PO (09:19)
[2023-07-05 09:40] LABS: MANUAL DIFF FLAG NO
[2023-07-05 09:41] LABS: Basophils Percent Auto 0.1 % (0-2); Hematocrit 27.6 % (37.0-47.0); Hemoglobin 8.5 g/dl (12.0-16.0); Imm Gran Abs Auto 0.03 X10*3/uL (0.00-0.03); Imm Gran Pct Auto 0.4 % (0.0-0.4); Lymphocytes Absolute Auto 0.6 X10*3/uL (1.2-4.9); Lymphocytes Percent Auto 7.1 % (20-40); Mean Corpuscular HGB Conc 30.8 g/dl (31.0-35.0); Mean Corpuscular Hemoglobin 28.7 pg (27.0-33.0); Mean Corpuscular Volume 93.2 fL (80.0-98.0); Mean Platelet Volume 9.1 fL (9.4-12.3); Monocytes Absolute Auto 0.9 X10*3/uL (0.1-1.2); Monocytes Percent Auto 10.6 % (2-11); Neutrophils Absolute Auto 6.6 x10*3/uL (2.0-8.3); Neutrophils Percent Auto 81.8 % (45-73); Platelet Count 299 X10*3/uL (160-400); Red Blood Count 2.96 X10*6/uL (4.20-5.50); Red Cell Distribution Width 16.7 % (11.0-16.0); White Blood Count 8.1 X10*3/uL (4.8-10.8)
[2023-07-05 10:04] LABS: Alanine Aminotransferase 47 U/L (0-31); Albumin Level 3.5 g/dL (3.5-5.0); Alkaline Phosphatase 97 U/L (39-117); Anion Gap 15 (12-20); Aspartate Amino Transferase 52 U/L (5-31); Bilirubin Total 0.5 mg/dL (0.0-1.0); Blood Urea Nitrogen 27 mg/dL (9-16); Calcium 7.9 mg/dL (8.4-10.2); Carbon Dioxide 24 mmol/L (22-29); Chloride 102 mmol/L (96-108); Creatinine Clr Calc Pharmacy 25.6; Estimated Glomerular Filt Rate 38; Glucose Random 114 mg/dL (60-115); Magnesium 2.1 mg/dL (1.6-2.6); Phosphorus 3.9 mg/dL (2.7-4.5); Potassium 4.1 mmol/L (3.3-5.1); Sodium 137 mmol/L (135-145)
--- NOTE | 2023-07-05 11:39 | P.PNCC_ITS ---
Subjective Subjective Date of Service: 07/05/23 Interval History: 83-year-old lady COPD noncompliant with home O2, hypertension, AFib on Pradaxa, AAA, recent right femoral fracture status post surgical repair admitted on 07/03/2023 with hypoxia with hospital course complicated by pulmonary aspiration requiring intubation and ventilatory support, extubated on 07/04/2023, required re-intubation 07/05/2023 in the morning secondary to acute hypercapnia, likely related to over-sedation for significant owning. Self extubated this a.m. while being weaned off ventilator. Events overnight as above. Critical Care Time (minutes): 60 Physical Exam 2 Vital Signs: Vital Signs: Last Vital Signs Temp 98.2 F 07/05/23 08:00 Pulse 77 07/05/23 11:00 Resp 20 07/05/23 11:00 BP 151/53 H 07/05/23 11:00 Pulse Ox 94 07/05/23 11:00 O2 Del Method Mechanical Ventil ation 07/05/23 11:00 O2 Flow Rate 50 07/04/23 22:55 FiO2 30 07/05/23 11:10 Oxygen Flow Rate 4 07/03/23 10:22 BMI result Body Mass Index 17.9 Const: General: no acute distress, alert and awake Eyes: Sclerae: sclerae normal EOM: EOMs intact bilaterally Neck: Neck: Yes no lymphadenopathy, Yes trachea midline and Yes supple Resp: Effort & Inspection: normal respiratory effort and no respiratory distress Auscultation: clear to auscultation bilaterally Cardio: Rate: tachycardic Rhythm: regular rhythm Heart sounds: no gallops, no murmurs and no rubs GI: Palpation (GI): Soft to palpation and Other GI palpation findings present ( Nontender) Auscultation: normal bowel sounds Extrem: General: Yes no pedal edema, No clubbing and No cyanosis Objective Data Labs 07/05/23 09:39 07/05/23 09:34 Labs: Laboratory Results - last 24 hr 07/04/23 07/05/23 07/05/23 23:46 01:51 05:57 WBC 11.4 H RBC 3.07 L Hgb 9.0 L Hct 28.9 L MCV 94.1 MCH 29.3 MCHC 31.1 RDW 16.7 H Plt Count 350 MPV 9.0 L Immature Gran % (Auto) 0.4 Neut % (Auto) 82.7 H Lymph % (Auto) 4.[address] [place] % (Auto) 11.9 H Eos % (Auto) 0.0 Baso % (Auto) 0.1 Lymph # (Auto) 0.[address] [place] # (Auto) 1.4 H Eos # (Auto) 0.0 Baso # (Auto) 0.0 Abs Immat Gran (auto) 0.05 H Absolute Neuts (auto) 9.4 H Absolute Nucleated RBC 0.000 Nucleated RBC % (auto) 0.0 O2 Saturation 96.0 91.0 ABG pH at Pt Temp 7.03 L* 7.41 ABG pCO2 at Pt Temp 114 H* 49 H ABG pO2 at Pt Temp 115 H 63 L ABG HCO3 30 H 31 H ABG Base Excess (Actual) -2.6 6.3 VBG pH 7.31 L VBG pCO2 55 VBG pO2 71 VBG HCO3 28 H VBG O2 Saturation 96.0 VBG Base Excess 1.3 Sodium 138 Potassium 4.7 Chloride 102 Carbon Dioxide 23 Anion Gap 18 BUN 22 H Creatinine 1.14 Estim Creat Clear Calc 32.6 Estimated GFR 45 Random Glucose 151 H Calcium 8.7 D Phosphorus 5.0 H Magnesium 2.2 Total Bilirubin AST ALT Alkaline Phosphatase Total Protein Albumin 07/05/23 07/05/23 09:34 09:39 WBC 8.1 RBC 2.96 L Hgb 8.5 L Hct 27.6 L MCV 93.2 MCH 28.7 MCHC 30.8 L RDW 16.7 H Plt Count 299 MPV 9.1 L Immature Gran % (Auto) 0.4 Neut % (Auto) 81.8 H Lymph % (Auto) 7.[address] [place] % (Auto) 10.6 Eos % (Auto) 0.0 Baso % (Auto) 0.1 Lymph # (Auto) 0.[address] [place] # (Auto) 0.9 Eos # (Auto) 0.0 Baso # (Auto) 0.0 Abs Immat Gran (auto) 0.03 Absolute Neuts (auto) 6.6 Absolute Nucleated RBC 0.000 Nucleated RBC % (auto) 0.0 O2 Saturation ABG pH at Pt Temp ABG pCO2 at Pt Temp ABG pO2 at Pt Temp ABG HCO3 ABG Base Excess (Actual) VBG pH VBG pCO2 VBG pO2 VBG HCO3 VBG O2 Saturation VBG Base Excess Sodium 137 Potassium 4.1 Chloride 102 Carbon Dioxide 24 Anion Gap 15 BUN 27 H Creatinine 1.34 Estim Creat Clear Calc 25.6 Estimated GFR 38 Random Glucose 114 Calcium 7.9 L D Phosphorus 3.9 Magnesium 2.1 Total Bilirubin 0.5 AST 52 H ALT 47 H Alkaline Phosphatase 97 Total Protein 6.0 L Albumin 3.5 Microbiology Microbiology Results: Microbiology 07/03/23 Unknown Urine clean catch - Urine wright top Urine Culture - Final Enterobacter cloacae complex 07/04/23 02:01 Blood - Subclavian Blood Culture - Preliminary No growth after 24 hours. 07/03/23 11:03 Blood - Venous Blood Culture - Preliminary No growth after 24 hours. 07/03/23 10:41 Blood - Venous Blood Culture - Preliminary No growth after 24 hours. Progress Note: A&P Assessment and plan (1) Acute hypercapnic respiratory failure: Status: Acute (2) COPD (chronic obstructive pulmonary disease): Status: Acute (3) Acute exacerbation of chronic obstructive airways disease: Status: Acute (4) Acute UTI: Status: Acute (5) Hypoxia: Status: Acute (6) Afib: Status: Acute Plan Assessment: 83-year-old lady with underlying advanced COPD admitted with hypoxia and Enterobacter UTI with hospital course complicated by pulmonary aspiration requiring intubation and ventilatory support and hypercapnic respiratory failure requiring re-intubation Plan: Neuro: No acute issues. Significant sundowning. Avoid sedatives. Cardiac: Questioning underlying valvular disease. 2D echo is pending. Pulmonary: Acute hypoxic and hypercapnic respiratory failure requiring re- intubation, self extubated this a.m.. Continue to titrate off supplemental oxygen. Underlying COPD with CO2 retention. O2 sat goal of 88-92%. Underlying COPD exacerbation, continue with systemic glucocorticoids and nebulized bronchodilators. Renal: No acute issues. Endo: No acute issues. GI: No acute issues. ID: Enterobacter UTI, switched to Levaquin. Heme/Onc: No acute issues. Psych: No acute issues. Miscellaneous: No acute issues. Prophylaxis: Pradaxa Diet: Pending swallow evaluation Critical care time spent: 60 minute Quality Stroke Does the patient have a stroke diagnosis?: No VTE Prior VTE?: No VTE Risk Level:: Medical - moderate - high VTE Device Contraindication: Treatment Not Indicated VTE Drug Contraindication: N/A - Med Ordered
--- NOTE | 2023-07-05 11:46 | PC.NURSE ---
1100 - Prop gtt paused for sedation vacation; positive cough, gag and pain response; PERRLA; Arousable to voice; Positive tracking; Following commands; Unable to stay awake; Restraints in place 1125 - This RN responded to bedside related to vent alarm; Patient found self extubating - leaning forward with chest and body bent and restrained left hand pulling ETT & OGT out; RT & MD called to bedside stat; Oral suctioning provided; High flow 35% 40L applied - o2 goal 88%-92% per MD. Audible wheeze, breathing labored w/ accessory muscle use - scheduled treatment administered by RT w/ some relief - MD notified - Atarax IM & Levaquin ordered. Pt awake, alert, stating I need to get out of here . Patient educated on current health status. Patient continuing to pull at oxygen tubing & lines - restraints continued and sitter at bedside. Secondary contact Javier called and updated on current status.
[2023-07-05] MEDS: hydrOXYzine HCL 50 MG/ML VIAL 25 MG IM (12:05)
[2023-07-05] MEDS: levoFLOXacin/D5W 500 MG/100 ML PIGGYBACK 100 MG IV (12:05)
--- NOTE | 2023-07-05 12:40 | HO.WOUND ---
Wound Consult: Initial / Follow up 83yr old?F [place] [facility] [place] - See progress notes and H&P for detailed history.? Wound consult placed for Buttock wound POA.? Patient currently intubated. Able to assess sacrum today and is detailed below. ? Sacrum Upclose Right Sacrum Sacrum Etiology: ?Stage 3 Pressure Injury ?Present on Admission Wound Bed:adherent yellow slough to wound bed with some pink tissue noted in various areas Drainage / Odor: scant serosang Edges: ? irregular Josseline wound: red pink tissue evidence of scar tissue noted - there is an area of nonblanchable maroon tissue to the left sacrum Goals of Treatment: ? Triad to allow for moist wound healing and foam dressing to protect from friction Specialty bed in use. No new topical recommendations needed. Recommendations: 1. Turn and Reposition every 2 hours and as needed for patient comfort.? Use pillows or wedges to support off loading positions. 2. Off Load all bony prominences with use of pillows and heel boots if needed.? Apply Preventative foams where needed. ? 3. Monitor for incontinence and moisture control, use barrier creams when needed for prevention and treatment. 4. Provide adequate and supplemental nutrition.? 5. Order or Continue low air loss mattress. 6. When applicable maintain blood glucose levels per Providers order. 7. Sacrum - Off Load Pressure - Cleanse with PH balance spray or wipes, pat dry. ?Apply thin layer of Triad to wound bed. Do not remove all of paste between applications as this may cause further skin damage.? Cover with foam dressing to aid in off loading and protection from friction. Re-consult wound care Nurse for wound deterioration or wound changes.
--- NOTE | 2023-07-05 12:59 | MHC.CM.PN ---
Pt required reintubation on the overnight but should be able to extubate today per MD. Pt will have an echo as well. Original d/c plan was for a return to home w/[facility] however, this may need to be reassessed for ? STR needs. CM to follow.
[2023-07-05] MEDS: 0.9 % Sodium Chloride Flush 3 ML SYRINGE IVFLUSH (17:28)
[2023-07-05] MEDS: Metoprolol Tartrate 5 MG/5 ML VIAL IVPUSH (19:56)
[2023-07-06] VITALS (25 sets, daily range): BP systolic 76–186; BP diastolic 45–99; PULSE 61–100; RESP 15–30; TEMP 35–36.8; O2SAT 88–100; BMI 18.0
[2023-07-06 04:55] LABS: VBG HCO3 33 mmol/L (22-26); VBG pCO2 41 mmHg; VBG pH 7.51 (7.32-7.43); VBG pO2 63 mmHg
[2023-07-06 04:56] LABS: Venous Blood Gas Refer to POC result
[2023-07-06 05:12] LABS: MANUAL DIFF FLAG NO
[2023-07-06 05:14] LABS: Hematocrit 24.2 % (37.0-47.0); Hemoglobin 7.6 g/dl (12.0-16.0); Imm Gran Abs Auto 0.04 X10*3/uL (0.00-0.03); Imm Gran Pct Auto 0.6 % (0.0-0.4); Lymphocytes Absolute Auto 0.6 X10*3/uL (1.2-4.9); Lymphocytes Percent Auto 8.8 % (20-40); Mean Corpuscular HGB Conc 31.4 g/dl (31.0-35.0); Mean Corpuscular Hemoglobin 28.6 pg (27.0-33.0); Monocytes Absolute Auto 0.7 X10*3/uL (0.1-1.2); Monocytes Percent Auto 10.6 % (2-11); Neutrophils Absolute Auto 5.4 x10*3/uL (2.0-8.3); Platelet Count 318 X10*3/uL (160-400); Red Blood Count 2.66 X10*6/uL (4.20-5.50); Red Cell Distribution Width 16.9 % (11.0-16.0); White Blood Count 6.8 X10*3/uL (4.8-10.8)
[2023-07-06 05:31] LABS: Alanine Aminotransferase 36 U/L (0-31); Albumin Level 3.4 g/dL (3.5-5.0); Alkaline Phosphatase 85 U/L (39-117); Anion Gap 13 (12-20); Aspartate Amino Transferase 39 U/L (5-31); Bilirubin Total 0.6 mg/dL (0.0-1.0); Blood Urea Nitrogen 35 mg/dL (9-16); Calcium 8.7 mg/dL (8.4-10.2); Carbon Dioxide 28 mmol/L (22-29); Chloride 101 mmol/L (96-108); Creatinine Clr Calc Pharmacy 29.5; Estimated Glomerular Filt Rate 45; Glucose Random 94 mg/dL (60-115); Magnesium 2.1 mg/dL (1.6-2.6); Phosphorus 2.3 mg/dL (2.7-4.5); Potassium 3.9 mmol/L (3.3-5.1); Sodium 138 mmol/L (135-145); Total Protein 5.9 g/dL (6.5-8.0)
[2023-07-06] MEDS: Potassium Phosphate/NS 15 MMOL/250 ML PLAST..BAG 62.5 MMOL IV (05:53)
[2023-07-06] MEDS: Albumin Human 25 % 100 ML IV (05:53)
[2023-07-06] MEDS: hydrALAZINE HCl 20 MG/ML VIAL 10 MG IVPUSH (05:53)
--- NOTE | 2023-07-06 06:12 | PC.NURSE ---
CARE ASSUMED 7PM..AWAKE..ALERT...ORIENTED X3 BUT VAGUE RESPONSES AT TIMES..REMAINS HI-RITA CANNULA...INITIALLY FIO2 30% AND 40 L/M ..DENIED DISTRESS...INCONTINANT URINE DESPITE PURWIK...RESPIRATORY DISTESS 8PM WHEN FLAT FOR LINEN CHANGE/PERSONAL CARE....SINUS TACH HR 130'S AND SAO2 60'S...RR 38-40...O2 TO70% AND 50 L/M...LOPRESSOR 5 MG IV X1 PER ICU CLINICAL REHAB SPECIALIST....HR DECREASED TO NSR HR 80'S...SAO2 TO 98%..RELIEF OF SOB...O2 WEANED BACK TO 30% AND 40 L/M....MENTATION STABLE OVERNIGHT.....0630 C/O SEVERE SOB....HR 130'S..LUNGS WITH DIFFUSE CRACKLES AND WHEEZES..HI-RITA TITRATED TO 100% AND 100% NRB MASK PLACED..ICU CLINICAL REHAB SPECIALIST PRESENT..LOPRESSOR 5MG IV X1 GIVEN..RT PRESENT FOR UPDRAFT...HR DECREASED [id number]...DECREASED WORK OF BREATHING NRB MASK REMOVED..HI-RITA CANNULA WEANED TO 50%...ALBUMEN AND KPO4 INFUSIONS PAUSED PER CLINICAL REHAB SPECIALIST...TO RESUME WHEN DECREASED SOB
[2023-07-06] MEDS: Metoprolol Tartrate 5 MG/5 ML VIAL IVPUSH (06:30)
[2023-07-06] MEDS: Albuterol/Iprat 2.5/0.5MG 3 ML AMPUL.NEB INHALE ×4 (06:31→20:18)
[2023-07-06] MEDS: hydrALAZINE HCl 20 MG/ML VIAL 5 MG IVPUSH (06:59)
[2023-07-06] MEDS: Nitroglycerin 2 % Oint 1 GM Packet 0.5 INCH TRANSDERMA (07:00)
[2023-07-06] MEDS: 0.9 % Sodium Chloride Flush 3 ML SYRINGE IVFLUSH ×3 (07:04→21:16)
[2023-07-06] MEDS: Nicotine 21 MG PATCH.TD24 TRANSDERMA (08:41)
[2023-07-06] MEDS: Bumetanide 1 MG/4 ML VIAL IVPUSH (08:43)
[2023-07-06] MEDS: methylPREDNISolone Sod Succ 40 MG/ML VIAL IVPUSH (08:43)
[2023-07-06] MEDS: Atorvastatin Calcium 80 MG TABLET PO (08:50)
[2023-07-06] MEDS: Metoprolol Tartrate 50 MG TABLET PO ×2 (08:50→21:02)
--- NOTE | 2023-07-06 09:58 | P.PNCC_ITS ---
Subjective Subjective Date of Service: 07/06/23 Interval History: 83-year-old lady COPD noncompliant with home O2, hypertension, AFib on Pradaxa, AAA, recent right femoral fracture status post surgical repair admitted on 07/03/2023 with hypoxia with hospital course complicated by pulmonary aspiration requiring intubation and ventilatory support, extubated on 07/04/2023, required re-intubation 07/05/2023 in the morning secondary to acute hypercapnia, likely related to over-sedation for significant owning. Self extubated 07/05/2023 while being weaned off ventilator. No events overnight. FiO2 requirements to 28% supplemental FiO2. Does get agitated and tends to desaturate with agitation. Critical Care Time (minutes): 0 Physical Exam 2 Vital Signs: Vital Signs: Last Vital Signs Temp 98.2 F 07/06/23 08:00 Pulse 95 07/06/23 08:00 Resp 22 H 07/06/23 08:00 BP 144/75 H 07/06/23 08:00 Pulse Ox 92 07/06/23 08:00 O2 Del Method High Flow Nasal C annula 07/06/23 08:00 O2 Flow Rate 40 07/06/23 08:00 FiO2 35 07/06/23 08:00 Oxygen Flow Rate 4 07/03/23 10:22 BMI result Body Mass Index 18.0 Const: General: no acute distress, alert and awake Nutritional Appearance: malnourished Eyes: Sclerae: sclerae normal EOM: EOMs intact bilaterally Neck: Neck: Yes no lymphadenopathy, Yes trachea midline and Yes supple Resp: Effort & Inspection: normal respiratory effort and no respiratory distress Auscultation: clear to auscultation bilaterally Cardio: Rate: regular rate Rhythm: regular rhythm Heart sounds: no gallops, no murmurs and no rubs GI: Palpation (GI): Soft to palpation and Other GI palpation findings present ( Nontender) Auscultation: normal bowel sounds Extrem: General: Yes no pedal edema, No clubbing and No cyanosis Objective Data Labs 07/06/23 04:35 07/06/23 04:35 Labs: Laboratory Results - last 24 hr 07/05/23 07/06/23 07/06/23 09:34 04:35 04:47 WBC 6.8 RBC 2.66 L Hgb 7.6 L Hct 24.2 L MCV 91.0 MCH 28.6 MCHC 31.4 RDW 16.9 H Plt Count 318 MPV 9.0 L Immature Gran % (Auto) 0.6 H Neut % (Auto) 80.0 H Lymph % (Auto) 8.8 L [place] % (Auto) 10.6 Eos % (Auto) 0.0 Baso % (Auto) 0.0 Lymph # (Auto) 0.6 L [place] # (Auto) 0.7 Eos # (Auto) 0.0 Baso # (Auto) 0.0 Abs Immat Gran (auto) 0.04 H Absolute Neuts (auto) 5.4 Absolute Nucleated RBC 0.000 Nucleated RBC % (auto) 0.0 VBG pH 7.51 H VBG pCO2 41 VBG pO2 63 VBG HCO3 33 H VBG O2 Saturation 92.0 VBG Base Excess 10.0 Sodium 137 138 Potassium 4.1 3.9 Chloride 102 101 Carbon Dioxide 24 28 Anion Gap 15 13 BUN 27 H 35 H Creatinine 1.34 1.16 Estim Creat Clear Calc 25.6 29.5 Estimated GFR 38 45 Random Glucose 114 94 Calcium 7.9 L D 8.7 D Phosphorus 3.9 2.3 L Magnesium 2.1 2.1 Total Bilirubin 0.5 0.6 AST 52 H 39 H ALT 47 H 36 H Alkaline Phosphatase 97 85 Total Protein 6.0 L 5.9 L Albumin 3.5 3.4 L Microbiology Microbiology Results: Microbiology 07/04/23 02:01 Blood - Subclavian Blood Culture - Preliminary No growth after 48 hours. 07/04/23 10:00 Blood - Subclavian Blood Culture - Preliminary No growth after 24 hours. 07/03/23 11:03 Blood - Venous Blood Culture - Preliminary No growth after 48 hours. 07/03/23 10:41 Blood - Venous Blood Culture - Preliminary No growth after 48 hours. 07/03/23 Unknown Urine clean catch - Urine wright top Urine Culture - Final Enterobacter cloacae complex Progress Note: A&P Assessment and plan (1) Acute UTI: Status: Acute (2) COPD (chronic obstructive pulmonary disease): Status: Acute (3) Afib: Status: Acute (4) Acute exacerbation of chronic obstructive airways disease: Status: Acute Plan Assessment: 83-year-old lady with underlying advanced COPD admitted with hypoxia and Enterobacter UTI with hospital course complicated by pulmonary aspiration requiring intubation and ventilatory support and hypercapnic respiratory failure requiring re-intubation Plan: Neuro: No acute issues. Significant sundowning. Avoid benzodiazepines. Responds well to hydroxyzine.. Cardiac: Underlying acute on chronic diastolic congestive heart failure with moderate aortic stenosis that is improving with diuresis. Pulmonary: Acute hypoxic and hypercapnic respiratory failure requiring re- intubation, self extubated this a.m.. Continue to titrate off supplemental oxygen. Underlying COPD with CO2 retention. O2 sat goal of 88-92%. Underlying COPD exacerbation, continue with systemic glucocorticoids and nebulized bronchodilators. Renal: No acute issues. Endo: No acute issues. GI: No acute issues. ID: Enterobacter UTI, switched to Levaquin. Heme/Onc: No acute issues. Psych: No acute issues. Miscellaneous: No acute issues. Prophylaxis: Pradaxa Diet: Regular Quality Stroke Does the patient have a stroke diagnosis?: No VTE Prior VTE?: No VTE Risk Level:: Medical - moderate - high VTE Device Contraindication: Treatment Not Indicated VTE Drug Contraindication: N/A - Med Ordered
[2023-07-06] MEDS: hydrOXYzine HCL 50 MG/ML VIAL IM (10:18)
--- NOTE | 2023-07-06 11:47 | MHC.CLN ---
F/U PT IS MODERATELY MALNOURISHED SEE FULL CLINICAL NUTRITION ASSESSMENT DATED 07/04/23 PT EXTUBATED AND NOW TRANSFERRING TO MEDICAL FLOOR DIET ADVANCING TO REGULAR RECOMMEND ADDING ENSURE BID TO PROMOTE WOUND HEALING SUPPLEMENT TO PROVIDE 700KCALS, 40G PROTEIN MONITOR PO INTAKE AND ENCOURAGE SUPPLEMENTS
--- NOTE | 2023-07-06 12:02 | MHC.CM.PN ---
Pt now on hi flow n/c : alert and making clinical progress: should be able to transfer to medical floor later today. Original d/c plan was for home w/[facility] and EMERGENCY PHYSICIAN support however, pt may require STR - PT eval will assist w/finalization of d/c planning. CM to follow.
[2023-07-06] MEDS: levoFLOXacin/D5W 500 MG/100 ML PIGGYBACK 100 MG IV (13:20)
--- NOTE | 2023-07-06 16:47 | P.EN_ITS ---
Event Note Date of Service: 07/06/23 Event Note: 83-year-old lady COPD noncompliant with home O2, hypertension, AFib on Pradaxa, AAA, recent right femoral fracture status post surgical repair admitted on 07/03/2023 with hypoxia with hospital course complicated by pulmonary aspiration requiring intubation and ventilatory support, extubated on 07/04/2023, required re-intubation 07/05/2023 in the morning secondary to acute hypercapnia, likely related to over-sedation for significant . extubated 07/04, downgraded to the medical floor on July 05 UTI- growing Enterobacter cloacae complex Continue IV levofloxacin COPD exacerbation- history of hypercarbic respiratory failure, avoid over oxygenation, goal O2 88- 90% Continue IV Solu-Medrol, breathing treatments Continue supplemental oxygen, wean as tolerated paroxysmal atrial fibrillation-rate controlled continue Pradaxa for anticoagulation continue metoprolol for rate control AAA -ASA, statin hypertension Amlodipine on hold, continue Lopressor HFpEF euvolemic, not on diuretics s/p ORIF due to right femur fracture 05/31 -PT eval Time Spent With Patient Time: Total time managing care of this patient today ____ minutes.
[2023-07-06] MEDS: Albuterol Sulfate (0.083%) 2.5 MG/3 ML VIAL.NEB INHALE (20:16)
[2023-07-06] MEDS: Dabigatran Etexilate Mesylate 150 MG CAPSULE PO (21:01)
[2023-07-06] MEDS: hydrOXYzine HCL 25 MG TABLET PO (21:02)
[2023-07-07] VITALS (14 sets, daily range): BP systolic 135–188; BP diastolic 61–94; PULSE 60–101; RESP 16–24; TEMP 35.8–37.1; O2SAT 93–99
[2023-07-07] MEDS: amLODIPine Besylate 5 MG TABLET PO ×2 (01:23→08:46)
[2023-07-07] MEDS: hydrOXYzine HCL 25 MG TABLET PO ×4 (04:13→23:58)
[2023-07-07] MEDS: Albuterol Sulfate (0.083%) 2.5 MG/3 ML VIAL.NEB INHALE (04:25)
[2023-07-07 07:11] LABS: MANUAL DIFF FLAG NO
[2023-07-07 07:14] LABS: Basophils Percent Auto 0.1 % (0-2); Hematocrit 27.5 % (37.0-47.0); Hemoglobin 8.7 g/dl (12.0-16.0); Imm Gran Abs Auto 0.05 X10*3/uL (0.00-0.03); Imm Gran Pct Auto 0.6 % (0.0-0.4); Lymphocytes Absolute Auto 0.6 X10*3/uL (1.2-4.9); Lymphocytes Percent Auto 6.8 % (20-40); Mean Corpuscular HGB Conc 31.6 g/dl (31.0-35.0); Mean Corpuscular Volume 91.7 fL (80.0-98.0); Mean Platelet Volume 9.1 fL (9.4-12.3); Monocytes Absolute Auto 0.8 X10*3/uL (0.1-1.2); Monocytes Percent Auto 9.3 % (2-11); Neutrophils Absolute Auto 7.2 x10*3/uL (2.0-8.3); Neutrophils Percent Auto 83.2 % (45-73); Platelet Count 302 X10*3/uL (160-400); Red Cell Distribution Width 16.9 % (11.0-16.0); White Blood Count 8.6 X10*3/uL (4.8-10.8)
[2023-07-07] MEDS: Albuterol/Iprat 2.5/0.5MG 3 ML AMPUL.NEB INHALE ×3 (07:56→15:27)
[2023-07-07 07:57] LABS: Albumin Level 3.8 g/dL (3.5-5.0); Anion Gap 18 (12-20); Blood Urea Nitrogen 43 mg/dL (9-16); Calcium 9.1 mg/dL (8.4-10.2); Carbon Dioxide 25 mmol/L (22-29); Chloride 103 mmol/L (96-108); Creatinine Clr Calc Pharmacy 31.5; Estimated Glomerular Filt Rate 48; Glucose Random 111 mg/dL (60-115); Magnesium 2.2 mg/dL (1.6-2.6); Potassium 4.2 mmol/L (3.3-5.1); Sodium 142 mmol/L (135-145)
[2023-07-07] MEDS: Nicotine 21 MG PATCH.TD24 TRANSDERMA (08:45)
[2023-07-07] MEDS: Dabigatran Etexilate Mesylate 150 MG CAPSULE PO ×2 (08:45→20:42)
[2023-07-07] MEDS: Metoprolol Tartrate 50 MG TABLET PO ×3 (08:46→20:44)
[2023-07-07] MEDS: Atorvastatin Calcium 80 MG TABLET PO (08:46)
[2023-07-07] MEDS: methylPREDNISolone Sod Succ 40 MG/ML VIAL IVPUSH (08:47)
[2023-07-07] MEDS: 0.9 % Sodium Chloride Flush 3 ML SYRINGE IVFLUSH ×3 (08:47→20:42)
[2023-07-07] MEDS: Acetaminophen 325 MG TABLET 650 MG PO (10:36)
--- NOTE | 2023-07-07 12:10 | HO.PM.IMPN ---
Subjective Subjective Date of Service: 07/07/23 Interval History: Seen and examined this morning Follow-up for respiratory failure Downgraded from the ICU on July 05 Still with some shortness of breath, concerned about eating, does not want to choke Review of Systems Review of Systems: Yes all other systems are reviewed and are negative Constitutional Constitutional: Denies chills and Denies fever(s) Cardiovascular Cardiovascular: Denies chest pain, Denies palpitations and Reports dyspnea Respiratory Respiratory: Denies cough and Reports dyspnea Endocrine Endocrine: Denies palpitations Physical Exam Vital Signs: Vital Signs: Last Vital Signs Temp 97.9 F 07/07/23 07:03 Pulse 60 07/07/23 11:12 Resp 18 07/07/23 11:12 BP 177/81 H 07/07/23 07:03 Pulse Ox 98 07/07/23 07:03 O2 Del Method Oxymask 07/07/23 07:03 O2 Flow Rate 2 07/07/23 07:03 FiO2 35 07/06/23 11:57 Oxygen Flow Rate 4 07/03/23 10:22 BMI result Body Mass Index 18.0 Const: Other: Constitutional-awake, alert, in no acute distress, alert and oriented x3; thin, frail Cardiovascular-regular rate and rhythm Pulmonary bilateral expiratory wheezing, prolonged expiratory phase, no accessory muscle use GI abdomen soft, nontender, nondistended Musculoskeletal-able to move all 4 extremities. Bilateral heels in offloading boots Neuro-grossly nonfocal Objective Data Active Medications Acetaminophen (Acetaminophen 325 Mg Tablet) 650 mg PO Q6H PRN PRN Reason: Pain, Mild (Pain Scale 1-3) Last Admin: 07/07/23 10:36 Dose: 650 mg Documented By: MARIA EUGENIA Albuterol Sulfate (Albuterol Sulfate (0.083%) 2.5 Mg/3 Ml Vial.Neb) 2.5 mg INHALE Q2H PRN PRN Reason: Shortness of Breath/Wheezing Last Admin: 07/07/23 04:25 Dose: 2.5 mg Documented By: JEAN Albuterol/Ipratropium (Albuterol/Iprat 2.5/0.5mg 3 Ml Ampul.Neb) 3 ml INHALE RQ4H WHILE AWAKE [facility] Last Admin: 07/07/23 11:12 Dose: 3 ml Documented By: MAY Amlodipine Besylate (Amlodipine Besylate 5 Mg Tablet) 5 mg PO DAILY [facility]; Protocol Last Admin: 07/07/23 08:46 Dose: 5 mg Documented By: MARIA EUGENIA Atorvastatin Calcium (Atorvastatin Calcium 80 Mg Tablet) 80 mg PO DAILY [facility] Last Admin: 07/07/23 08:46 Dose: 80 mg Documented By: MARIA EUGENIA Dabigatran (Dabigatran Etexilate Mesylate 150 Mg Capsule) 150 mg PO BID [facility] Last Admin: 07/07/23 08:45 Dose: 150 mg Documented By: MARIA EUGENIA Guaifenesin (Guaifenesin 200 Mg/10 Ml 10 Ml Liquid) 10 ml PO Q6H PRN PRN Reason: Cough Hydroxyzine HCl (Hydroxyzine Hcl 25 Mg Tablet) 25 mg PO Q6H PRN PRN Reason: anxiety/restlessness Last Admin: 07/07/23 10:36 Dose: 25 mg Documented By: MARIA EUGENIA Levofloxacin (Levaquin) 500 mg in 100 mls @ 100 mls/hr IV Q24H [facility] Last Infusion: 07/06/23 14:33 Dose: Infused Documented By: MEGGAN Magnesium Hydroxide (Milk Of Magnesia 30 Ml Oral.Susp) 30 ml PO DAILY PRN PRN Reason: Constipation Methylprednisolone Sodium Succinate (Methylprednisolone Sod Succ 40 Mg/Ml Vial) 40 mg IVPUSH DAILY [facility] Last Admin: 07/07/23 08:47 Dose: 40 mg Documented By: MARIA EUGENIA Metoprolol Tartrate (Metoprolol Tartrate 50 Mg Tablet) 50 mg PO BID [facility]; Protocol Last Admin: 07/07/23 08:46 Dose: 50 mg Documented By: MARIA EUGENIA Nicotine (Nicotine 21 Mg Patch.Td24) 21 mg TRANSDERMA DAILY [facility] Last Admin: 07/07/23 08:45 Dose: 21 mg Documented By: MARIA EUGENIA Ondansetron HCl (Ondansetron Hcl 4 Mg/2 Ml Vial) 4 mg IVPUSH Q8H PRN PRN Reason: Nausea and Vomiting Sodium Chloride (0.9 % Sodium Chloride Flush 3 Ml Syringe) 3 ml IVFLUSH QSHIFT [facility] Last Admin: 07/07/23 08:47 Dose: 3 ml Documented By: MARIA EUGENIA Labs 07/07/23 06:34 07/07/23 06:34 Labs: Laboratory Results - last 24 hr 07/07/23 06:34 MCV 91.7 MCH 29.0 MCHC 31.6 RDW 16.9 H Plt Count 302 MPV 9.1 L Immature Gran % (Auto) 0.6 H Neut % (Auto) 83.2 H Lymph % (Auto) 6.8 L Scurry % (Auto) 9.3 Eos % (Auto) 0.0 Baso % (Auto) 0.1 Lymph # (Auto) 0.6 L Scurry # (Auto) 0.8 Eos # (Auto) 0.0 Baso # (Auto) 0.0 Abs Immat Gran (auto) 0.05 H Absolute Neuts (auto) 7.2 Absolute Nucleated RBC 0.000 Nucleated RBC % (auto) 0.0 Anion Gap 18 Estim Creat Clear Calc 31.5 Estimated GFR 48 Random Glucose 111 Calcium 9.1 Magnesium 2.2 Albumin 3.8 Microbiology Microbiology Results: Microbiology 07/04/23 10:00 Blood Culture - Preliminary Blood - Subclavian No growth after 48 hours. Assessment and Plan (1) Acute hypercapnic respiratory failure: Status: Acute (2) COPD (chronic obstructive pulmonary disease): Status: Acute (3) Acute UTI: Status: Acute Plan 83-year-old lady COPD noncompliant with home O2, hypertension, AFib on Pradaxa, AAA, recent right femoral fracture status post surgical repair admitted on 07/03/2023 with hypoxia with hospital course complicated by pulmonary aspiration requiring intubation and ventilatory support, extubated on 07/04/2023, required re-intubation 07/05/2023 in the morning secondary to acute hypercapnia, likely related to over-sedation from medication given for agitation/?. extubated 07/04, downgraded to the medical floor on July 05 UTI- growing Enterobacter cloacae complex Continue IV levofloxacin, started 07/04 COPD exacerbation/viral URI Tested positive for parainfluenza and coronavirus (not COVID 19) history of hypercarbic respiratory failure, avoid over oxygenation, goal O2 88-90% Continue IV Solu-Medrol, breathing treatments Continue supplemental oxygen, wean as tolerated Blood cultures negative paroxysmal atrial fibrillation-rate controlled continue Pradaxa for anticoagulation continue metoprolol for rate control AAA ASA, statin hypertension Continue Lopressor Amlodipine discontinued in the ICU. Blood pressure now elevated, resume amlodipine and monitor blood pressure closely HFpEF euvolemic, not on diuretics at baseline received push dose of diuretics in ICU s/p ORIF due to right femur fracture 05/31 PT eval Mood Lorazepam discontinued due to over-sedation while in ICU. if becomes agitated respond well to hydroxyzine Tobacco dependence Smoking cessation advised Nicotine replacement therapy Moderate protein calorie malnutrition As evidenced by loss of muscle mass and subcutaneous tissue, BMI 18 Protein supplements DVT prophylaxis-Pradaxa Code status-full code Patient requires ongoing inpatient stay for management of acute COPD exacerbation requiring IV steroids and PT evaluation for safe disposition Quality Stroke Does the patient have a stroke diagnosis?: No VTE Prior VTE?: No VTE Risk Level:: Medical - moderate - high VTE Device Contraindication: Treatment Not Indicated VTE Drug Contraindication: N/A - Med Ordered
[2023-07-07] MEDS: levoFLOXacin/D5W 500 MG/100 ML PIGGYBACK 100 MG IV (13:43)
[2023-07-08] VITALS (14 sets, daily range): BP systolic 144–217; BP diastolic 70–89; PULSE 69–105; RESP 18–26; TEMP 36.1–36.9; O2SAT 86–97
[2023-07-08] MEDS: Albuterol/Iprat 2.5/0.5MG 3 ML AMPUL.NEB INHALE ×4 (07:45→19:42)
[2023-07-08] MEDS: 0.9 % Sodium Chloride Flush 3 ML SYRINGE IVFLUSH ×2 (09:16→16:13)
[2023-07-08] MEDS: Dabigatran Etexilate Mesylate 150 MG CAPSULE PO ×2 (09:16→21:27)
[2023-07-08] MEDS: amLODIPine Besylate 5 MG TABLET PO (09:17)
[2023-07-08] MEDS: Nicotine 21 MG PATCH.TD24 TRANSDERMA (09:17)
[2023-07-08] MEDS: Atorvastatin Calcium 80 MG TABLET PO (09:17)
[2023-07-08] MEDS: methylPREDNISolone Sod Succ 40 MG/ML VIAL IVPUSH (09:18)
--- NOTE | 2023-07-08 09:44 | HE.PHANOTE ---
CHANGE IV LEVOFLOXACIN TO PO DOSING PER PROTOCOL AFTER CONFIRMATION WITH Josette ARRIAZA.
[2023-07-08] MEDS: Metoprolol Tartrate 50 MG TABLET PO (09:53)
[2023-07-08] MEDS: levoFLOXacin 500 MG TABLET PO (11:49)
--- NOTE | 2023-07-08 12:57 | HO.PM.IMPN ---
Subjective Subjective Date of Service: 07/08/23 Interval History: Seen and examined this morning Follow-up for respiratory failure Still with shortness of breath, improving slowly Anxious to return home Review of Systems Review of Systems: Yes all other systems are reviewed and are negative Constitutional Constitutional: Denies chills and Denies fever(s) Cardiovascular Cardiovascular: Denies chest pain Physical Exam Vital Signs: Vital Signs: Last Vital Signs Temp 97.3 F 07/08/23 11:07 Pulse 71 07/08/23 11:07 Resp 18 07/08/23 11:16 BP 173/74 H 07/08/23 11:07 Pulse Ox 92 07/08/23 11:07 O2 Del Method Oxymask 07/08/23 11:07 O2 Flow Rate 2 07/08/23 11:07 FiO2 35 07/06/23 11:57 Oxygen Flow Rate 4 07/03/23 10:22 BMI result Body Mass Index 18.0 Const: Other: Constitutional-awake, alert, in no acute distress, alert and oriented x3; thin, frail Cardiovascular-regular rate and rhythm Pulmonary bilateral expiratory wheezing, prolonged expiratory phase, no accessory muscle use GI abdomen soft, nontender, nondistended Musculoskeletal-able to move all 4 extremities. Bilateral heels in offloading boots Neuro-grossly nonfocal Objective Data Active Medications Acetaminophen (Acetaminophen 325 Mg Tablet) 650 mg PO Q6H PRN PRN Reason: Pain, Mild (Pain Scale 1-3) Last Admin: 07/07/23 10:36 Dose: 650 mg Documented By: MARIA EUGENIA Albuterol Sulfate (Albuterol Sulfate (0.083%) 2.5 Mg/3 Ml Vial.Neb) 2.5 mg INHALE Q2H PRN PRN Reason: Shortness of Breath/Wheezing Last Admin: 07/07/23 04:25 Dose: 2.5 mg Documented By: JEAN Albuterol/Ipratropium (Albuterol/Iprat 2.5/0.5mg 3 Ml Ampul.Neb) 3 ml INHALE RQ4H WHILE AWAKE [facility] Last Admin: 07/08/23 11:16 Dose: 3 ml Documented By: MAY Amlodipine Besylate (Amlodipine Besylate 5 Mg Tablet) 5 mg PO DAILY [facility]; Protocol Last Admin: 07/08/23 09:17 Dose: 5 mg Documented By: MARIA EUGENIA Atorvastatin Calcium (Atorvastatin Calcium 80 Mg Tablet) 80 mg PO DAILY [facility] Last Admin: 07/08/23 09:17 Dose: 80 mg Documented By: MARIA EUGENIA Dabigatran (Dabigatran Etexilate Mesylate 150 Mg Capsule) 150 mg PO BID [facility] Last Admin: 07/08/23 09:16 Dose: 150 mg Documented By: MARIA EUGENIA Guaifenesin (Guaifenesin 200 Mg/10 Ml 10 Ml Liquid) 10 ml PO Q6H PRN PRN Reason: Cough Hydroxyzine HCl (Hydroxyzine Hcl 25 Mg Tablet) 25 mg PO Q6H PRN PRN Reason: anxiety/restlessness Last Admin: 07/07/23 23:58 Dose: 25 mg Documented By: PAT Levofloxacin (Levofloxacin 500 Mg Tablet) 500 mg PO Q24H [facility] Last Admin: 07/08/23 11:49 Dose: 500 mg Documented By: MARIA EUGENIA Magnesium Hydroxide (Milk Of Magnesia 30 Ml Oral.Susp) 30 ml PO DAILY PRN PRN Reason: Constipation Methylprednisolone Sodium Succinate (Methylprednisolone Sod Succ 40 Mg/Ml Vial) 40 mg IVPUSH DAILY [facility] Last Admin: 07/08/23 09:18 Dose: 40 mg Documented By: MARIA EUGENIA Metoprolol Tartrate (Metoprolol Tartrate 50 Mg Tablet) 50 mg PO BID [facility]; Protocol Last Admin: 07/08/23 09:53 Dose: 50 mg Documented By: MARIA EUGENIA Comments: per provider to give 9 am dose Nicotine (Nicotine 21 Mg Patch.Td24) 21 mg TRANSDERMA DAILY [facility] Last Admin: 07/08/23 09:17 Dose: 21 mg Documented By: MARIA EUGENIA Ondansetron HCl (Ondansetron Hcl 4 Mg/2 Ml Vial) 4 mg IVPUSH Q8H PRN PRN Reason: Nausea and Vomiting Sodium Chloride (0.9 % Sodium Chloride Flush 3 Ml Syringe) 3 ml IVFLUSH QSHIFT [facility] Last Admin: 07/08/23 09:16 Dose: 3 ml Documented By: MARIA EUGENIA Labs 07/07/23 06:34 07/07/23 06:34 Microbiology Microbiology Results: Microbiology 07/03/23 10:41 Blood Culture - Final Blood - Venous No growth after 5 days. Assessment and Plan (1) Acute hypercapnic respiratory failure: Status: Acute Plan 83-year-old lady COPD noncompliant with home O2, hypertension, AFib on Pradaxa, AAA, recent right femoral fracture status post surgical repair admitted on 07/03/2023 with hypoxia with hospital course complicated by pulmonary aspiration requiring intubation and ventilatory support, extubated on 07/04/2023, required re-intubation 07/05/2023 in the morning secondary to acute hypercapnia, likely related to over-sedation from medication given for agitation/?. extubated 07/04, downgraded to the medical floor on July 05 UTI- growing Enterobacter cloacae complex Continue IV levofloxacin, started 07/04 on day 4 COPD exacerbation/viral URI Tested positive for parainfluenza and coronavirus (not COVID 19) history of hypercarbic respiratory failure, avoid over oxygenation, goal O2 88-90% Continue IV Solu-Medrol, breathing treatments, ?transition to po steroids in am Continue supplemental oxygen, wean as tolerated Blood cultures negative paroxysmal atrial fibrillation-rate controlled continue Pradaxa for anticoagulation continue metoprolol for rate control AAA ASA, statin hypertension Continue Lopressor Amlodipine discontinued in the ICU. Blood pressure now elevated, resume amlodipine and monitor blood pressure closely HFpEF euvolemic, not on diuretics at baseline received push dose of diuretics in ICU s/p ORIF due to right femur fracture 05/31 PT eval- recommends short-term rehab Outpatient follow-up with ortho Elevated LFTs Trending down Mood Lorazepam discontinued due to over-sedation while in ICU. if becomes agitated respond well to hydroxyzine Tobacco dependence Smoking cessation advised Nicotine replacement therapy Moderate protein calorie malnutrition As evidenced by loss of muscle mass and subcutaneous tissue, BMI 18 Protein supplements DVT prophylaxis-Pradaxa Code status-full code Disposition-PT recommends short-term rehab. Patient declines, prefers to return home when medically ready Patient requires ongoing inpatient stay for management of acute COPD exacerbation requiring IV steroids Quality Stroke Does the patient have a stroke diagnosis?: No VTE Prior VTE?: No VTE Risk Level:: Medical - moderate - high VTE Device Contraindication: Treatment Not Indicated VTE Drug Contraindication: N/A - Med Ordered
[2023-07-08] MEDS: amLODIPine Besylate 2.5 MG TABLET PO (16:10)
[2023-07-08] MEDS: hydrOXYzine HCL 25 MG TABLET PO (16:11)
[2023-07-09] VITALS (10 sets, daily range): BP systolic 131–202; BP diastolic 60–78; PULSE 63–100; RESP 20–95; TEMP 36.3–36.9; O2SAT 90–97
[2023-07-09] MEDS: 0.9 % Sodium Chloride Flush 3 ML SYRINGE IVFLUSH ×4 (02:12→20:34)
[2023-07-09] MEDS: amLODIPine Besylate 5 MG TABLET PO (04:10)
[2023-07-09] MEDS: Albuterol/Iprat 2.5/0.5MG 3 ML AMPUL.NEB INHALE ×2 (07:48→23:18)
[2023-07-09] MEDS: Atorvastatin Calcium 80 MG TABLET PO (09:25)
[2023-07-09] MEDS: methylPREDNISolone Sod Succ 40 MG/ML VIAL IVPUSH (09:25)
[2023-07-09] MEDS: Nicotine 21 MG PATCH.TD24 TRANSDERMA (09:26)
[2023-07-09] MEDS: Dabigatran Etexilate Mesylate 150 MG CAPSULE PO ×2 (09:27→20:33)
[2023-07-09] MEDS: Metoprolol Tartrate 50 MG TABLET PO ×2 (09:28→20:33)
--- NOTE | 2023-07-09 10:24 | MHC.CM.PN ---
Per ROUNDS discussion, Patient is not yet medically cleared for dc (still confused); PT is recommending STR and [facility] [place] [facility] has accepted pending auth and confirmation that they are in network with Patient's insurance.CM will follow.
--- NOTE | 2023-07-09 10:59 | MHC.CM.PN ---
[facility] IS in contract with Patient's insurance. CM will follow.
--- NOTE | 2023-07-09 11:43 | MHC.CLN ---
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
[2023-07-09] MEDS: levoFLOXacin 500 MG TABLET PO (12:35)
--- NOTE | 2023-07-09 13:01 | HO.PM.IMPN ---
Subjective Subjective Date of Service: 07/09/23 Interval History: Seen and examined this morning Follow-up for respiratory failure Still with shortness of breath, improving slowly Anxious to return home Review of Systems Review of Systems: Yes all other systems are reviewed and are negative Constitutional Constitutional: Denies chills and Denies fever(s) Cardiovascular Cardiovascular: Denies chest pain Physical Exam Vital Signs: Vital Signs: Last Vital Signs Temp 97.3 F 07/09/23 11:29 Pulse 63 07/09/23 11:29 Resp 20 07/09/23 11:29 BP 144/78 H 07/09/23 11:29 Pulse Ox 94 07/09/23 11:29 O2 Del Method Nasal Cannula 07/09/23 11:29 O2 Flow Rate 2 07/09/23 11:29 FiO2 35 07/06/23 11:57 Oxygen Flow Rate 4 07/03/23 10:22 BMI result Body Mass Index 18.0 Appearing in no acute distress lung sounds are clear to auscultation heart regular rate rhythm, clear S1, S2 positive bowel sounds, abdomen is soft, nontender neuro patient is alert x3, no focal deficits Objective Data Active Medications Acetaminophen (Acetaminophen 325 Mg Tablet) 650 mg PO Q6H PRN PRN Reason: Pain, Mild (Pain Scale 1-3) Last Admin: 07/07/23 10:36 Dose: 650 mg Documented By: MARIA EUGENIA Albuterol Sulfate (Albuterol Sulfate (0.083%) 2.5 Mg/3 Ml Vial.Neb) 2.5 mg INHALE Q2H PRN PRN Reason: Shortness of Breath/Wheezing Last Admin: 07/07/23 04:25 Dose: 2.5 mg Documented By: JEAN Albuterol/Ipratropium (Albuterol/Iprat 2.5/0.5mg 3 Ml Ampul.Neb) 3 ml INHALE RQ4H WHILE AWAKE [facility] Last Admin: 07/09/23 11:21 Dose: Not Given Documented By: MAY Non-Admin Reason: pt refused has sore throat Amlodipine Besylate (Amlodipine Besylate 5 Mg Tablet) 5 mg PO DAILY [facility]; Protocol Last Admin: 07/09/23 04:10 Dose: 5 mg Documented By: IVAN Atorvastatin Calcium (Atorvastatin Calcium 80 Mg Tablet) 80 mg PO DAILY [facility] Last Admin: 07/09/23 09:25 Dose: 80 mg Documented By: HUMZA Dabigatran (Dabigatran Etexilate Mesylate 150 Mg Capsule) 150 mg PO BID [facility] Last Admin: 07/09/23 09:27 Dose: 150 mg Documented By: HUMZA Guaifenesin (Guaifenesin 200 Mg/10 Ml 10 Ml Liquid) 10 ml PO Q6H PRN PRN Reason: Cough Hydroxyzine HCl (Hydroxyzine Hcl 25 Mg Tablet) 25 mg PO Q6H PRN PRN Reason: anxiety/restlessness Last Admin: 07/08/23 16:11 Dose: 25 mg Documented By: MARIA EUGENIA Levofloxacin (Levofloxacin 500 Mg Tablet) 500 mg PO Q24H [facility] Last Admin: 07/09/23 12:35 Dose: 500 mg Documented By: HUMZA Magnesium Hydroxide (Milk Of Magnesia 30 Ml Oral.Susp) 30 ml PO DAILY PRN PRN Reason: Constipation Methylprednisolone Sodium Succinate (Methylprednisolone Sod Succ 40 Mg/Ml Vial) 40 mg IVPUSH DAILY [facility] Last Admin: 07/09/23 09:25 Dose: 40 mg Documented By: HUMZA Metoprolol Tartrate (Metoprolol Tartrate 50 Mg Tablet) 50 mg PO BID [facility]; Protocol Last Admin: 07/09/23 09:28 Dose: 50 mg Documented By: HUMZA Nicotine (Nicotine 21 Mg Patch.Td24) 21 mg TRANSDERMA DAILY [facility] Last Admin: 07/09/23 09:26 Dose: 21 mg Documented By: HUMZA Ondansetron HCl (Ondansetron Hcl 4 Mg/2 Ml Vial) 4 mg IVPUSH Q8H PRN PRN Reason: Nausea and Vomiting Sodium Chloride (0.9 % Sodium Chloride Flush 3 Ml Syringe) 3 ml IVFLUSH QSHIFT [facility] Last Admin: 07/09/23 09:26 Dose: 3 ml Documented By: HUMZA Labs 07/07/23 06:34 07/07/23 06:34 Microbiology Microbiology Results: Microbiology 07/04/23 02:01 Blood Culture - Final Blood - Subclavian No growth after 5 days. 07/03/23 11:03 Blood Culture - Final Blood - Venous No growth after 5 days. 07/03/23 10:41 Blood Culture - Final Blood - Venous No growth after 5 days. Assessment and Plan (1) Acute hypercapnic respiratory failure: Status: Acute Plan 83-year-old lady COPD noncompliant with home O2, hypertension, AFib on Pradaxa, AAA, recent right femoral fracture status post surgical repair admitted on 07/03/2023 with hypoxia with hospital course complicated by pulmonary aspiration requiring intubation and ventilatory support, extubated on 07/04/2023, required re-intubation 07/05/2023 in the morning secondary to acute hypercapnia, likely related to over-sedation from medication given for agitation/?. extubated 07/04, downgraded to the medical floor on July 05 UTI growing Enterobacter cloacae complex Continue IV levofloxacin, started 07/04 COPD exacerbation/viral URI Tested positive for parainfluenza and coronavirus (not COVID 19) history of hypercarbic respiratory failure, avoid over oxygenation, goal O2 88-90% Continue IV Solu-Medrol, breathing treatments, ?transition to po steroids in am Continue supplemental oxygen, wean as tolerated Blood cultures negative paroxysmal atrial fibrillation-rate controlled continue Pradaxa for anticoagulation continue metoprolol for rate control AAA ASA, statin hypertension Continue Lopressor Amlodipine discontinued in the ICU. Blood pressure now elevated, resume amlodipine and monitor blood pressure closely HFpEF euvolemic, not on diuretics at baseline received push dose of diuretics in ICU s/p ORIF due to right femur fracture 05/31 PT eval- recommends short-term rehab Outpatient follow-up with ortho Elevated LFTs Trending down Mood Lorazepam discontinued due to over-sedation while in ICU. if becomes agitated respond well to hydroxyzine Tobacco dependence Smoking cessation advised Nicotine replacement therapy Moderate protein calorie malnutrition As evidenced by loss of muscle mass and subcutaneous tissue, BMI 18 Protein supplements DVT prophylaxis-Pradaselena Attending Dr. Burgos Code status-full code Disposition-PT recommends short-term rehab. Patient declines, prefers to return home when medically ready Patient requires ongoing inpatient stay for management of acute COPD exacerbation requiring IV steroids Quality Stroke Does the patient have a stroke diagnosis?: No VTE Prior VTE?: No VTE Risk Level:: Medical - moderate - high VTE Device Contraindication: Treatment Not Indicated VTE Drug Contraindication: N/A - Med Ordered
[2023-07-09] MEDS: LORazepam 1 MG TABLET PO (13:31)
[2023-07-10] VITALS (14 sets, daily range): BP systolic 138–212; BP diastolic 64–86; PULSE 55–121; RESP 16–20; TEMP 36.4–37.2; O2SAT 74–100
[2023-07-10] MEDS: amLODIPine Besylate 5 MG TABLET PO (06:14)
[2023-07-10] MEDS: Albuterol/Iprat 2.5/0.5MG 3 ML AMPUL.NEB INHALE ×3 (07:52→15:34)
[2023-07-10] MEDS: LORazepam 1 MG TABLET PO (08:28)
[2023-07-10] MEDS: Metoprolol Tartrate 50 MG TABLET PO ×2 (08:28→20:31)
[2023-07-10] MEDS: methylPREDNISolone Sod Succ 40 MG/ML VIAL IVPUSH (08:29)
[2023-07-10] MEDS: Atorvastatin Calcium 80 MG TABLET PO (08:29)
[2023-07-10] MEDS: Nicotine 21 MG PATCH.TD24 TRANSDERMA (08:29)
[2023-07-10] MEDS: Dabigatran Etexilate Mesylate 150 MG CAPSULE PO ×2 (08:29→20:31)
[2023-07-10] MEDS: 0.9 % Sodium Chloride Flush 3 ML SYRINGE IVFLUSH ×2 (08:31→20:32)
--- NOTE | 2023-07-10 08:45 | PC.NURSE ---
Pt with burst of atrial bigeminy at approx 0400. Resolved without in tervention, pt denies symptoms. Dr. Barrett made aware. BP progressively elevated. aware and per Dr. Barrett am dose amlidipine give with + effect.
--- NOTE | 2023-07-10 09:44 | P.CDIM_ITS ---
PROVIDER RESPONSE TEXT: To clarify, the appropriate diagnosis supported by the clinical indicators: Pressure (decubitus) ulcer: 3 QUERY TEXT: PHYSICIAN'S DOCUMENTATION REQUEST Date of Query: 07/09/2023 02:25 PM EDT Patient Name: Cordelia Norwood Admit Date: 07/03/2023 Dear Cass Diana, A review of the medical record indicates additional documentation may be needed. Please review below and update the documentation accordingly. Clinical Indicators: Per Wound Note 07/05/23: Right sacrum stage 3 pressure injury present on admission Triad to allow for moist wound healing and foam dressing to protect from friction Specialty bed in use. Based on the above, could you please provide further information regarding the ulcer/wound: Pressure (decubitus) ulcer Please include the stage of the ulcer and specify the location and laterality of the ulcer/wound Traumatic wound Please specify the location and laterality of the ulcer/wound Other (explain) Clinically unable to determine (explain) Thank you, Kat Holloway RN Use of terms such as suspected, likely, concern for, or probable (associated with a specific diagnosi s that is being evaluated, monitored, or treated as if it exists) are acceptable and can be coded in the inpatient se tting, when documented at the time of discharge. Please use your independent medical judgment in providing your response. THIS QUERY IS PART OF THE PERMANENT MEDICAL RECORD
--- NOTE | 2023-07-10 11:40 | HO.PM.IMPN ---
Subjective Subjective Date of Service: 07/10/23 Interval History: Seen and examined this morning Follow-up for respiratory failure Anxious to return home but agreeing to rehab Review of Systems Review of Systems: Yes all other systems are reviewed and are negative Constitutional Constitutional: Denies chills and Denies fever(s) Cardiovascular Cardiovascular: Denies chest pain Physical Exam Vital Signs: Vital Signs: Last Vital Signs Temp 98.9 F 07/10/23 07:51 Pulse 71 07/10/23 11:26 Resp 20 07/10/23 11:26 BP 148/64 H 07/10/23 08:28 Pulse Ox 74 L 07/10/23 11:20 O2 Del Method Nasal Cannula 07/10/23 07:51 O2 Flow Rate 2 07/10/23 07:51 FiO2 35 07/06/23 11:57 Oxygen Flow Rate 4 07/03/23 10:22 BMI result Body Mass Index 18.0 Appearing in no acute distress lung sounds are clear to auscultation heart regular rate rhythm, clear S1, S2 positive bowel sounds, abdomen is soft, nontender neuro patient is alert x3, no focal deficits Objective Data Active Medications Acetaminophen (Acetaminophen 325 Mg Tablet) 650 mg PO Q6H PRN PRN Reason: Pain, Mild (Pain Scale 1-3) Last Admin: 07/07/23 10:36 Dose: 650 mg Documented By: MARIA EUGENIA Albuterol Sulfate (Albuterol Sulfate (0.083%) 2.5 Mg/3 Ml Vial.Neb) 2.5 mg INHALE Q2H PRN PRN Reason: Shortness of Breath/Wheezing Last Admin: 07/07/23 04:25 Dose: 2.5 mg Documented By: JEAN Albuterol/Ipratropium (Albuterol/Iprat 2.5/0.5mg 3 Ml Ampul.Neb) 3 ml INHALE RQ4H WHILE AWAKE [place] Last Admin: 07/10/23 11:26 Dose: 3 ml Documented By: AARON Amlodipine Besylate (Amlodipine Besylate 2.5 Mg Tablet) 7.5 mg PO DAILY [facility]; Protocol Last Admin: 07/10/23 08:07 Dose: Not Given Documented By: HUMZA Non-Admin Reason: pt was given AM dose early Atorvastatin Calcium (Atorvastatin Calcium 80 Mg Tablet) 80 mg PO DAILY [facility] Last Admin: 07/10/23 08:29 Dose: 80 mg Documented By: HUMZA Dabigatran (Dabigatran Etexilate Mesylate 150 Mg Capsule) 150 mg PO BID [facility] Last Admin: 07/10/23 08:29 Dose: 150 mg Documented By: HUMZA Guaifenesin (Guaifenesin 200 Mg/10 Ml 10 Ml Liquid) 10 ml PO Q6H PRN PRN Reason: Cough Hydroxyzine HCl (Hydroxyzine Hcl 25 Mg Tablet) 25 mg PO Q6H PRN PRN Reason: anxiety/restlessness Last Admin: 07/08/23 16:11 Dose: 25 mg Documented By: MARIA EUGENIA Levofloxacin (Levaquin) 750 mg in 150 mls @ 100 mls/hr IV Q48H [facility] Lorazepam (Lorazepam 1 Mg Tablet) 1 mg PO DAILY PRN PRN Reason: Anxiety Last Admin: 07/10/23 08:28 Dose: 1 mg Documented By: HUMZA Magnesium Hydroxide (Milk Of Magnesia 30 Ml Oral.Susp) 30 ml PO DAILY PRN PRN Reason: Constipation Methylprednisolone Sodium Succinate (Methylprednisolone Sod Succ 40 Mg/Ml Vial) 40 mg IVPUSH DAILY [facility] Last Admin: 07/10/23 08:29 Dose: 40 mg Documented By: HUMZA Metoprolol Tartrate (Metoprolol Tartrate 50 Mg Tablet) 50 mg PO BID [facility]; Protocol Last Admin: 07/10/23 08:28 Dose: 50 mg Documented By: HUMZA Nicotine (Nicotine 21 Mg Patch.Td24) 21 mg TRANSDERMA DAILY [facility] Last Admin: 07/10/23 08:29 Dose: 21 mg Documented By: HUMZA Ondansetron HCl (Ondansetron Hcl 4 Mg/2 Ml Vial) 4 mg IVPUSH Q8H PRN PRN Reason: Nausea and Vomiting Sodium Chloride (0.9 % Sodium Chloride Flush 3 Ml Syringe) 3 ml IVFLUSH QSHIFT [facility] Last Admin: 07/10/23 08:31 Dose: 3 ml Documented By: HUMZA Labs 07/07/23 06:34 07/07/23 06:34 Microbiology Microbiology Results: Microbiology 07/04/23 10:00 Blood Culture - Final Blood - Subclavian No growth after 5 days. Assessment and Plan (1) Acute hypercapnic respiratory failure: Status: Acute Plan 83-year-old lady COPD noncompliant with home O2, hypertension, AFib on Pradaxa, AAA, recent right femoral fracture status post surgical repair admitted on 07/03/2023 with hypoxia with hospital course complicated by pulmonary aspiration requiring intubation and ventilatory support, extubated on 07/04/2023, required re-intubation 07/05/2023 in the morning secondary to acute hypercapnia, likely related to over-sedation from medication given for agitation/?. extubated 07/04, downgraded to the medical floor on July 05 UTI growing Enterobacter cloacae complex Continue IV levofloxacin, started 07/04 COPD exacerbation/viral URI Tested positive for parainfluenza and coronavirus (not COVID 19) history of hypercarbic respiratory failure, avoid over oxygenation, goal O2 88-90% s/p IV Solu-Medrol, breathing treatments, transition to po steroids in am Continue supplemental oxygen, wean as tolerated Blood cultures negative paroxysmal atrial fibrillation-rate controlled continue Pradaxa for anticoagulation continue metoprolol for rate control AAA ASA, statin hypertension Continue Lopressor Amlodipine discontinued in the ICU. Blood pressure now elevated, resume amlodipine and monitor blood pressure closely HFpEF euvolemic, not on diuretics at baseline received push dose of diuretics in ICU s/p ORIF due to right femur fracture 05/31 PT eval- recommends short-term rehab Outpatient follow-up with ortho Elevated LFTs Trending down Mood Lorazepam discontinued due to over-sedation while in ICU. if becomes agitated respond well to hydroxyzine Tobacco dependence Smoking cessation advised Nicotine replacement therapy Moderate protein calorie malnutrition As evidenced by loss of muscle mass and subcutaneous tissue, BMI 18 Protein supplements DVT prophylaxis-Padmini Attending Dr. Benson Code status-full code Disposition-PT recommends short-term rehab. Patient requires ongoing inpatient stay for management of acute COPD exacerbation requiring IV steroids Quality Stroke Does the patient have a stroke diagnosis?: No VTE Prior VTE?: No VTE Risk Level:: Medical - moderate - high VTE Device Contraindication: Treatment Not Indicated VTE Drug Contraindication: N/A - Med Ordered
--- NOTE | 2023-07-10 14:57 | PC.RT ---
Pt educated and able to demonstrated E cylinders operation. Pt acknowledged to call vendor at time of arrival. Pt given list of saftey topics to refer to when using supplemental oxygen at home. Nurse aware.
--- NOTE | 2023-07-10 15:25 | MHC.CM.PN ---
Second IMM given 07/09. [facility] have offered pt a STR bed. Pt initially did not want to go to STR but after speaking with the hospitalist, she realizes that it is the best recommendation for her, and pt has accepted bed offer from [facility]. [facility] will need to obtain auth.
[2023-07-10] MEDS: levoFLOXacin/D5W 750 MG/150 ML PIGGYBACK 100 MG IV (15:28)
--- NOTE | 2023-07-10 16:22 | HO.WOUND ---
Wound Consult: Follow up Attempted follow up twice today oth timews patient was not agreeable or was intreupted and unable to complete follow up assessment. Will attempt future date and time. No new topical recommendations at this time. 83yr old?F [place] [facility] [place] - See progress notes and H&P for detailed history.? Wound consult placed for Buttock wound POA.? Patient currently intubated. Able to assess sacrum today and is detailed below. ? Sacrum Etiology: ?Stage 3 Pressure Injury ?Present on Admission Wound Bed:adherent yellow slough to wound bed with some pink tissue noted in various areas Drainage / Odor: scant serosang Edges: ? irregular Josseline wound: red pink tissue evidence of scar tissue noted - there is an area of nonblanchable maroon tissue to the left sacrum Goals of Treatment: ? Triad to allow for moist wound healing and foam dressing to protect from friction Specialty bed in use. No new topical recommendations needed. Recommendations: 1. Turn and Reposition every 2 hours and as needed for patient comfort.? Use pillows or wedges to support off loading positions. 2. Off Load all bony prominences with use of pillows and heel boots if needed.? Apply Preventative foams where needed. ? 3. Monitor for incontinence and moisture control, use barrier creams when needed for prevention and treatment. 4. Provide adequate and supplemental nutrition.? 5. Order or Continue low air loss mattress. 6. When applicable maintain blood glucose levels per Providers order. 7. Sacrum - Off Load Pressure - Cleanse with PH balance spray or wipes, pat dry. ?Apply thin layer of Triad to wound bed. Do not remove all of paste between applications as this may cause further skin damage.? Cover with foam dressing to aid in off loading and protection from friction. Re-consult wound care Nurse for wound deterioration or wound changes.
[2023-07-11] VITALS (8 sets, daily range): BP systolic 138–166; BP diastolic 70–87; PULSE 60–98; RESP 15–20; TEMP 36.3–36.9; O2SAT 90–100
[2023-07-11] MEDS: predniSONE 20 MG TABLET 40 MG PO (10:15)
[2023-07-11] MEDS: Atorvastatin Calcium 80 MG TABLET PO (10:16)
[2023-07-11] MEDS: Dabigatran Etexilate Mesylate 150 MG CAPSULE PO ×2 (10:16→19:54)
[2023-07-11] MEDS: Metoprolol Tartrate 50 MG TABLET PO ×2 (10:17→19:54)
[2023-07-11] MEDS: amLODIPine Besylate 2.5 MG TABLET 7.5 MG PO (10:17)
[2023-07-11] MEDS: Nicotine 21 MG PATCH.TD24 TRANSDERMA (10:21)
[2023-07-11] MEDS: 0.9 % Sodium Chloride Flush 3 ML SYRINGE IVFLUSH ×2 (10:27→19:57)
--- NOTE | 2023-07-11 10:29 | HO.WOUND ---
Wound Consult: Follow up 83yr old?Female admitted to [facility] on 07/03/23 - See progress notes and H&P for detailed history.? Wound consult follow up for sacral wound POA.? Arrival to bedside patient agreeable to assessment and photo documentation. She reports improved comfort to sacral area. ? Sacrum Sacrum Etiology: ?Stage 3 Pressure Injury ?Present on Admission Measurement: Right open wound bed 1cm x 1cm x 0.2cm Wound Bed: red pink moist tissue with dark maroon purple nonblanchable tissue in the periwound remains Drainage / Odor: none noted Edges: ? irregular Josseline wound: MASD (Moisture associated Sin Damage)red pink blanchable tissue with epidermal peeling - evidence of scar tissue noted - there is an area of nonblanchable maroon tissue to the left sacrum Goals of Treatment: ? Triad to allow for moist wound healing and foam dressing to protect from friction No new topical recommendations needed. Recommendations: 1. Turn and Reposition every 2 hours and as needed for patient comfort.? Use pillows or wedges to support off loading positions. 2. Off Load all bony prominences with use of pillows and heel boots if needed.? Apply Preventative foams where needed. ? 3. Monitor for incontinence and moisture control, use barrier creams when needed for prevention and treatment. 4. Provide adequate and supplemental nutrition.? 5. Order low air loss mattress. 6. When applicable maintain blood glucose levels per Providers order. 7. Sacrum - Off Load Pressure - Cleanse with PH balance spray or wipes, pat dry. ?Apply thin layer of Triad to wound bed. Do not remove all of paste between applications as this may cause further skin damage.? Cover with foam dressing to aid in off loading and protection from friction. Re-consult wound care Nurse for wound deterioration or wound changes.
--- NOTE | 2023-07-11 11:38 | PM.DS ---
DS: Providers Provider Date of admission: 07/03/23 14:37 Primary care physician: Jennifer Frost DO Consults: 07/04/23 04:48 Consult to Wound Care Routine Reason for consultation: Buttock PI DS: Diagnosis Discharge Diagnosis (1) Acute hypercapnic respiratory failure: Status: Acute Physical Exam Vital Signs: Vital Signs: Last Vital Signs Temp 98.4 F 07/11/23 11:13 Pulse 60 07/11/23 11:13 Resp 20 07/11/23 11:13 BP 142/82 H 07/11/23 11:13 Pulse Ox 99 07/11/23 11:13 O2 Del Method Nasal Cannula 07/11/23 11:13 O2 Flow Rate 3 07/11/23 11:13 FiO2 35 07/06/23 11:57 Oxygen Flow Rate 4 07/03/23 10:22 BMI result Body Mass Index 18.0 Discharge Plan Discharge Anticipated Discharge Date/Time: 07/10/23 14:57 Patient Disposition: Xfer Inpatient Rehab Fac Discharge Diagnosis: UTI COPD exacerbation Acute respiratory failure aspiration pneumonia Referrals: Jennifer Frost DO [Primary Care Provider] - 1 Week Discharge Medications: Continued amlodipine [Norvasc] 5 mg tablet 5 mg PO DAILY Qty: 30 0RF metoprolol tartrate 50 mg tablet 50 mg PO BID lorazepam 1 mg tablet 1 mg PO DAILY PRN (Reason: Anxiety) dabigatran etexilate 150 mg capsule 150 mg PO BID rosuvastatin 20 mg tablet 20 mg PO DAILY Diet: Advance to usual diet Activity on Discharge: As tolerated Stand Alone Forms: Patient Portal Discharge page Print Language: Kazakh Care Plan Goals: You will be sent home with oxygen. 2 liters at rest and 3 liters with ambulation. Do not smoke or use fire around the oxygen or its components. Health Concerns: UTI COPD exacerbation Acute respiratory failure aspiration pneumonia Plan of Treatment: Follow up with primary care provider as needed Take all medications as prescribed Assessment: See discharge summary
--- NOTE | 2023-07-11 13:13 | HO.PM.IMPN ---
Subjective Subjective Date of Service: 07/11/23 Interval History: Seen and examined this morning Follow-up for respiratory failure Anxious to return home but agreeing to rehab Review of Systems Review of Systems: Yes all other systems are reviewed and are negative Constitutional Constitutional: Denies chills and Denies fever(s) Cardiovascular Cardiovascular: Denies chest pain Physical Exam Vital Signs: Vital Signs: Last Vital Signs Temp 98.4 F 07/11/23 11:13 Pulse 60 07/11/23 11:13 Resp 20 07/11/23 11:13 BP 142/82 H 07/11/23 11:13 Pulse Ox 99 07/11/23 11:13 O2 Del Method Nasal Cannula 07/11/23 11:13 O2 Flow Rate 3 07/11/23 11:13 FiO2 35 07/06/23 11:57 Oxygen Flow Rate 4 07/03/23 10:22 BMI result Body Mass Index 18.0 Appearing in no acute distress lung sounds are clear to auscultation heart regular rate rhythm, clear S1, S2 positive bowel sounds, abdomen is soft, nontender neuro patient is alert x3, no focal deficits Objective Data Active Medications Acetaminophen (Acetaminophen 325 Mg Tablet) 650 mg PO Q6H PRN PRN Reason: Pain, Mild (Pain Scale 1-3) Last Admin: 07/07/23 10:36 Dose: 650 mg Documented By: MARIA EUGENIA Amlodipine Besylate (Amlodipine Besylate 2.5 Mg Tablet) 7.5 mg PO DAILY [facility]; Protocol Last Admin: 07/11/23 10:17 Dose: 7.5 mg Documented By: LESLEY Atorvastatin Calcium (Atorvastatin Calcium 80 Mg Tablet) 80 mg PO DAILY [facility] Last Admin: 07/11/23 10:16 Dose: 80 mg Documented By: LESLEY Dabigatran (Dabigatran Etexilate Mesylate 150 Mg Capsule) 150 mg PO BID [facility] Last Admin: 07/11/23 10:16 Dose: 150 mg Documented By: LESLEY Guaifenesin (Guaifenesin 200 Mg/10 Ml 10 Ml Liquid) 10 ml PO Q6H PRN PRN Reason: Cough Hydroxyzine HCl (Hydroxyzine Hcl 25 Mg Tablet) 25 mg PO Q6H PRN PRN Reason: anxiety/restlessness Last Admin: 07/08/23 16:11 Dose: 25 mg Documented By: MARIA EUGENIA Levofloxacin (Levaquin) 750 mg in 150 mls @ 100 mls/hr IV Q48H [facility] Last Infusion: 07/10/23 17:30 Dose: Infused Documented By: HUMZA Lorazepam (Lorazepam 1 Mg Tablet) 1 mg PO DAILY PRN PRN Reason: Anxiety Last Admin: 07/10/23 08:28 Dose: 1 mg Documented By: HUMZA Magnesium Hydroxide (Milk Of Magnesia 30 Ml Oral.Susp) 30 ml PO DAILY PRN PRN Reason: Constipation Metoprolol Tartrate (Metoprolol Tartrate 50 Mg Tablet) 50 mg PO BID [facility]; Protocol Last Admin: 07/11/23 10:17 Dose: 50 mg Documented By: LESLEY Nicotine (Nicotine 21 Mg Patch.Td24) 21 mg TRANSDERMA DAILY [facility] Last Admin: 07/11/23 10:21 Dose: 21 mg Documented By: LESLEY Ondansetron HCl (Ondansetron Hcl 4 Mg/2 Ml Vial) 4 mg IVPUSH Q8H PRN PRN Reason: Nausea and Vomiting Prednisone (Prednisone 20 Mg Tablet) 40 mg PO DAILY [facility] Last Admin: 07/11/23 10:15 Dose: 40 mg Documented By: LESLEY Sodium Chloride (0.9 % Sodium Chloride Flush 3 Ml Syringe) 3 ml IVFLUSH QSHIFT [facility] Last Admin: 07/11/23 10:27 Dose: 3 ml Documented By: LESLEY Labs 07/07/23 06:34 07/07/23 06:34 Assessment and Plan (1) Acute hypercapnic respiratory failure: Status: Acute Plan 83-year-old lady COPD noncompliant with home O2, hypertension, AFib on Pradaxa, AAA, recent right femoral fracture status post surgical repair admitted on 07/03/2023 with hypoxia with hospital course complicated by pulmonary aspiration requiring intubation and ventilatory support, extubated on 07/04/2023, required re-intubation 07/05/2023 in the morning secondary to acute hypercapnia, likely related to over-sedation from medication given for agitation/?. extubated 07/04, downgraded to the medical floor on July 05 UTI growing Enterobacter cloacae complex s/p Continue IV levofloxacin, completed 7 days COPD exacerbation/viral URI Tested positive for parainfluenza and coronavirus (not COVID 19) history of hypercarbic respiratory failure, avoid over oxygenation, goal O2 88-90% s/p IV Solu-Medrol, breathing treatments, on po steroids , taper Continue supplemental oxygen, wean as tolerated Blood cultures negative paroxysmal atrial fibrillation-rate controlled continue Pradaxa for anticoagulation continue metoprolol for rate control AAA ASA, statin hypertension Continue Lopressor and amlodipine HFpEF euvolemic, not on diuretics at baseline s/p ORIF due to right femur fracture 05/31 PT eval- recommends short-term rehab Outpatient follow-up with ortho Elevated LFTs Trending down Mood Lorazepam Tobacco dependence Smoking cessation advised Nicotine replacement therapy Moderate protein calorie malnutrition As evidenced by loss of muscle mass and subcutaneous tissue, BMI 18 Protein supplements DVT prophylaxis-Padmini Attending Dr. Benson Code status-full code Disposition-PT recommends short-term rehab, waiting for rehab bed to be available . Patient requires ongoing inpatient stay for management of acute COPD exacerbation requiring IV steroids Quality Stroke Does the patient have a stroke diagnosis?: No VTE Prior VTE?: No VTE Risk Level:: Medical - moderate - high VTE Device Contraindication: Treatment Not Indicated VTE Drug Contraindication: N/A - Med Ordered
--- NOTE | 2023-07-11 13:14 | MHC.CLN ---
F/U POOR PO INTAKE 25% DIET RX: CHOPPED PER LUMBER LOADER PT RECEIVING ENSURE BID TO PROMOTE WOUND HEALING SUPPLEMENT PROVIDES 700KCALS, 40G PROTEIN CONTINUE TO MONITOR PO INTAKE AND ENCOURAGE SUPPLEMENTS
--- NOTE | 2023-07-11 14:28 | MHC.SL.SWA ---
Risk of Aspiration Due to: Hx of Recent Extubation Dysphasia Diet Status: No change Liquid Consistency and Strategies for Safe Swallow: Liquid Intake Recommendation: Thin Liquid Intake Strategies: Small Sips Solid Food Consistency: Dietary Recommendations: Chopped/Advanced (NDD3) Oral Medication Intake: Whole/Crushed with Puree Please contact the pharmacy regarding appropriate crushable or liquid drug formulations that are available whenever modified delivery is recommended. Compensatory Strategies and Precautions to be Taken for Safe Swallow: Sitting Upright (90 deg) Supervision While Eating and Drinking for Safe Swallow: Intermittent Supervision Foods to Avoid: Hard, tough to chew solids Swallowing Recommended Treatments: Compens. Strategy Educat. Recommendation for Speech: Inpatient Speech Therapy Comment: Recommend pt continue with CHOPPED/ADVANCED solids and THIN liquids. Recommend further FIRE LIEUTENANT evaluation w/ use of straw. Recommend FIRE LIEUTENANT f/u 1-2x to monitor toleration of diet and make changes as needed. Recommend G.I. consult d/t ?pharyngoesophageal dysphagia symptoms: Patient attempting to expectorate food w/ belching and complaining of food coming back up to [her] throat. Circulation Analyst Clinican/Clinical Fellow: No Supervisory Statement: I have reviewed and agree with the student/clinical fellow's documentation: N/A Speech Language Pathologist: María Gomez M.A., CCC-FIRE LIEUTENANT
--- NOTE | 2023-07-11 16:10 | MHC.CM.PN ---
EMR reviewed and per MD rounds, pt remains medically cleared for discharge pending insurance auth at [facility] for STR.
[2023-07-11] MEDS: Albuterol Sulfate (0.083%) 2.5 MG/3 ML VIAL.NEB INHALE (20:02)
[2023-07-12] VITALS (11 sets, daily range): BP systolic 122–169; BP diastolic 61–83; PULSE 57–86; RESP 16–20; TEMP 36–37.1; O2SAT 89–97; BMI 16.1
[2023-07-12] MEDS: 0.9 % Sodium Chloride Flush 3 ML SYRINGE IVFLUSH ×4 (01:00→20:30)
[2023-07-12] MEDS: Metoprolol Tartrate 50 MG TABLET PO ×2 (08:27→20:19)
[2023-07-12] MEDS: hydrOXYzine HCL 25 MG TABLET PO ×2 (08:27→18:19)
[2023-07-12] MEDS: Dabigatran Etexilate Mesylate 150 MG CAPSULE PO ×2 (08:27→20:19)
[2023-07-12] MEDS: Atorvastatin Calcium 80 MG TABLET PO (08:27)
[2023-07-12] MEDS: amLODIPine Besylate 2.5 MG TABLET 7.5 MG PO (08:28)
[2023-07-12] MEDS: predniSONE 20 MG TABLET 40 MG PO (08:28)
[2023-07-12] MEDS: Nicotine 21 MG PATCH.TD24 TRANSDERMA (08:28)
[2023-07-12] MEDS: Albuterol Sulfate (0.083%) 2.5 MG/3 ML VIAL.NEB INHALE ×3 (09:15→22:47)
--- NOTE | 2023-07-12 10:56 | MHC.SL.SWA ---
Speech Pathologist Impression: Risk of aspiration, pharyngoesophageal dysphagia Risk of Aspiration Due to: Hx of Recent Extubation Dysphasia Diet Status: Recommend pt continue with CHOPPED/ADVANCED solids and THIN liquids. Recommend FINE SANDER f/u 1x to monitor toleration of diet and make changes as needed. Recommend G.I. consult d/t ?esophageal dysphagia symptoms: Patient attempting to expectorate food w/ belching and complaining of food coming back up to [her] throat. Liquid Consistency and Strategies for Safe Swallow: Liquid Intake Recommendation: Thin Liquid Intake Strategies: Small Sips Solid Food Consistency: Dietary Recommendations: Chopped/Advanced (NDD3) Oral Medication Intake: Whole with Puree Please contact the pharmacy regarding appropriate crushable or liquid drug formulations that are available whenever modified delivery is recommended. Compensatory Strategies and Precautions to be Taken for Safe Swallow: Sitting Upright (90 deg) Small Bites and Sips Alternate Liquids/Solids Rate of Ingestion Change Supervision While Eating and Drinking for Safe Swallow: Intermittent Supervision Foods to Avoid: Hard, tough to chew solids Swallowing Recommended Treatments: Compens. Strategy Educat. Recommendation for Speech: Inpatient Speech Therapy Comment: 1 f/u Frequency/Duration: Date Range for Service Req: Timeline to reassess: Sales And Marketing Intern Clinican/Clinical Fellow: No Supervisory Statement: I have reviewed and agree with the student/clinical fellow's documentation: N/A Speech Language Pathologist: Kinsey Tristan M.A., [facility]
[2023-07-12] MEDS: levoFLOXacin 750 MG TABLET PO (12:31)
--- NOTE | 2023-07-12 12:40 | P.PNIM_ITS ---
Subjective Subjective Date of Service: 07/12/23 Interval History: Seen and examined this morning Follow-up for COPD exacerbation, respiratory failure Remains anxious but breathing stable Constitutional Constitutional: Denies fever(s) Cardiovascular Cardiovascular: Denies chest pain and Denies dyspnea Respiratory Respiratory: Denies dyspnea Physical Exam 2 Vital Signs: Vital Signs: Last Vital Signs Temp 98.7 F 07/12/23 11:23 Pulse 64 07/12/23 11:23 Resp 20 07/12/23 11:23 BP 150/83 H 07/12/23 11:23 Pulse Ox 93 07/12/23 11:23 O2 Del Method Nasal Cannula 07/12/23 11:23 O2 Flow Rate 3 07/12/23 11:23 FiO2 35 07/06/23 11:57 Oxygen Flow Rate 4 07/03/23 10:22 BMI result Body Mass Index 16.1 Const: Other: Constitutional-awake, alert, in no acute distress, alert and oriented x3; thin, frail Cardiovascular-regular rate and rhythm Pulmonary bilateral expiratory wheezing, prolonged expiratory phase, no accessory muscle use GI abdomen soft, nontender, nondistended Musculoskeletal-able to move all 4 extremities. Bilateral heels in offloading boots Neuro-grossly nonfocal Objective Data Active Medications Acetaminophen (Acetaminophen 325 Mg Tablet) 650 mg PO Q6H PRN PRN Reason: Pain, Mild (Pain Scale 1-3) Last Admin: 07/07/23 10:36 Dose: 650 mg Documented By: MARIA EUGENIA Albuterol Sulfate (Albuterol Sulfate (0.083%) 2.5 Mg/3 Ml Vial.Neb) 2.5 mg INHALE Q4H PRN PRN Reason: wheezing Last Admin: 07/12/23 09:15 Dose: 2.5 mg Documented By: KEZIA Amlodipine Besylate (Amlodipine Besylate 2.5 Mg Tablet) 7.5 mg PO DAILY [facility]; Protocol Last Admin: 07/12/23 08:28 Dose: 7.5 mg Documented By: CHICHO Atorvastatin Calcium (Atorvastatin Calcium 80 Mg Tablet) 80 mg PO DAILY [facility] Last Admin: 07/12/23 08:27 Dose: 80 mg Documented By: CHICHO Dabigatran (Dabigatran Etexilate Mesylate 150 Mg Capsule) 150 mg PO BID [facility] Last Admin: 07/12/23 08:27 Dose: 150 mg Documented By: CHICHO Guaifenesin (Guaifenesin 200 Mg/10 Ml 10 Ml Liquid) 10 ml PO Q6H PRN PRN Reason: Cough Hydroxyzine HCl (Hydroxyzine Hcl 25 Mg Tablet) 25 mg PO Q6H PRN PRN Reason: anxiety/restlessness Last Admin: 07/12/23 08:27 Dose: 25 mg Documented By: CHICHO Lorazepam (Lorazepam 1 Mg Tablet) 1 mg PO DAILY PRN PRN Reason: Anxiety Last Admin: 07/10/23 08:28 Dose: 1 mg Documented By: HUMZA Magnesium Hydroxide (Milk Of Magnesia 30 Ml Oral.Susp) 30 ml PO DAILY PRN PRN Reason: Constipation Metoprolol Tartrate (Metoprolol Tartrate 50 Mg Tablet) 50 mg PO BID [facility]; Protocol Last Admin: 07/12/23 08:27 Dose: 50 mg Documented By: CHICHO Nicotine (Nicotine 21 Mg Patch.Td24) 21 mg TRANSDERMA DAILY [facility] Last Admin: 07/12/23 08:28 Dose: 21 mg Documented By: CHICHO Ondansetron HCl (Ondansetron Hcl 4 Mg/2 Ml Vial) 4 mg IVPUSH Q8H PRN PRN Reason: Nausea and Vomiting Prednisone (Prednisone 20 Mg Tablet) 40 mg PO DAILY [facility] Last Admin: 07/12/23 08:28 Dose: 40 mg Documented By: CHICHO Sodium Chloride (0.9 % Sodium Chloride Flush 3 Ml Syringe) 3 ml IVFLUSH QSHIFT [facility] Last Admin: 07/12/23 08:37 Dose: 3 ml Documented By: CHICHO Labs 07/07/23 06:34 07/07/23 06:34 Assessment and Plan (1) Acute hypercapnic respiratory failure: Status: Acute Plan 83-year-old lady COPD noncompliant with home O2, hypertension, AFib on Pradaxa, AAA, recent right femoral fracture status post surgical repair admitted on 07/03/2023 with hypoxia with hospital course complicated by pulmonary aspiration requiring intubation and ventilatory support, extubated on 07/04/2023, required re-intubation 07/05/2023 in the morning secondary to acute hypercapnia, likely related to over-sedation from medication given for agitation/?sundowning. extubated 07/04, downgraded to the medical floor on July 05 UTI growing Enterobacter cloacae complex s/p IV levofloxacin, completed 7 days COPD exacerbation/viral URI Tested positive for parainfluenza and coronavirus (not COVID 19) history of hypercarbic respiratory failure, avoid over oxygenation, goal O2 88- 90% s/p IV Solu-Medrol, breathing treatments, on po steroids , taper Continue supplemental oxygen, wean as tolerated Blood cultures negative paroxysmal atrial fibrillation-rate controlled continue Pradaxa for anticoagulation continue metoprolol for rate control AAA ASA, statin hypertension Continue Lopressor and amlodipine HFpEF euvolemic, not on diuretics at baseline s/p ORIF due to right femur fracture 05/31 PT eval- recommends short-term rehab Outpatient follow-up with ortho Elevated LFTs Trending down Mood Lorazepam Tobacco dependence Smoking cessation advised Nicotine replacement therapy Normocytic anemia H/H stable Outpatient follow-up Moderate protein calorie malnutrition As evidenced by loss of muscle mass and subcutaneous tissue, BMI 18 Protein supplements DVT prophylaxis-Padmini Attending Dr. Benson Code status-full code Disposition-PT recommends short-term rehab, waiting for rehab bed to be available . Patient requires ongoing inpatient stay for management of acute COPD exacerbation requiring IV steroids Quality Stroke Does the patient have a stroke diagnosis?: No VTE Prior VTE?: No VTE Risk Level:: Medical - moderate - high VTE Device Contraindication: Treatment Not Indicated VTE Drug Contraindication: N/A - Med Ordered
[2023-07-13 03:46] VITALS: BP 118/55; PULSE 62; RESP 16; TEMP 36.3; O2SAT 97
[2023-07-13] MEDS: hydrOXYzine HCL 25 MG TABLET PO ×2 (05:06→13:32)
[2023-07-13 06:00] VITALS: BMI 17.7
[2023-07-13 07:24] VITALS: BP 162/78; PULSE 69; RESP 18; TEMP 36.8; O2SAT 95
[2023-07-13] MEDS: 0.9 % Sodium Chloride Flush 3 ML SYRINGE IVFLUSH (09:50)
[2023-07-13] MEDS: Dabigatran Etexilate Mesylate 150 MG CAPSULE PO (09:51)
[2023-07-13] MEDS: predniSONE 20 MG TABLET 40 MG PO (09:52)
[2023-07-13] MEDS: Atorvastatin Calcium 80 MG TABLET PO (09:52)
[2023-07-13] MEDS: Nicotine 21 MG PATCH.TD24 TRANSDERMA (09:52)
[2023-07-13] MEDS: Metoprolol Tartrate 50 MG TABLET PO (09:52)
[2023-07-13] MEDS: amLODIPine Besylate 2.5 MG TABLET 7.5 MG PO (09:52)
[2023-07-13 11:11] VITALS: BP 156/60; PULSE 79; RESP 20; TEMP 36.8; O2SAT 93
--- NOTE | 2023-07-13 12:19 | PM.DS ---
DS: Providers Provider Date of Service: 07/13/23 Date of admission: 07/03/23 14:37 Date of discharge: 07/13/23 Primary care physician: Jennifer Frost DO Consults: 07/04/23 04:48 Consult to Wound Care Routine Reason for consultation: Buttock PI Attending physician on discharge: Earl Benson Discharging clinician: Danay Pemberton DS: Diagnosis Discharge Diagnosis (1) Acute hypercapnic respiratory failure: Status: Acute DS: Summary Hospital Course Hospital Course: From [facility] on the day of admission 83-year-old female with history of hypertension, COPD not on home O2, paroxysmal atrial fibrillation anticoagulated with Pradaxa, AAA, recent subcapital fracture of R femur s/p ORIF at [facility] with recent discharge 2 weeks ago from SNF presented to the ED from home due to hypoxia. While admitted patient was found to have pneumonia and was treated with IV abx and completed 5 days doxycycline as well. CTA at the time negative for PE. On DC completed 10 course augmentin. Had VNA at the home today and was found hypoxic in the 80s and was 78% on RA in the ED. Now maintaining oximetry 93% on 4L. Her housekeep has cough but she denies fevers, chills, congestion, ST. abd pain, n/v/d, cough, sob, wheezing, chest pain. She has underlying cognitive impairement and is not the most reliable historian. Wanted to go home but is agreeable to staying now. She was initially tachypneic to 23 on arrival, vitals otherwise stable except for hypoxia. Mildly leukopenic at 4.2. Normocytic anemia 10.0/32.2%. Renal function electrolytes normal. Lactic acid 1.1. Initial troponin 28.1, repeat 25.9. BNP 756 (was as high as 4100 at [facility]). Procalcitonin 0.04. Urinalysis with 2+ leukocytes, positive nitrites, trace blood, 4+ bacteria. In the ED, has received cefepime, DuoNeb, 40 mg Lasix, and 60 mg IV methylprednisolone. This is an 83-year-old lady COPD noncompliant with home O2, hypertension, AFib on Pradaxa, AAA, recent right femoral fracture status post surgical repair admitted on 07/03/2023 with hypoxia with hospital course complicated by pulmonary aspiration requiring intubation and ventilatory support, extubated on 07/04/2023, required re-intubation 07/05/2023 secondary to acute hypercapnia, likely related to over-sedation from medication given for agitation/?. extubated 07/04, downgraded to the medical floor on July 05. Has been doing well since downgrade from the medical floor UTI growing Enterobacter cloacae complex. s/p IV levofloxacin, completed 7 days COPD exacerbation/viral URI Tested positive for parainfluenza and coronavirus (not COVID 19). history of hypercarbic respiratory failure, avoid over oxygenation, goal O2 88-90% s/p IV Solu-Medrol, breathing treatments, on po steroids, will taper. Continue supplemental oxygen as needed, wean as tolerated Anxiety. Anxiety was ongoing problem during hospitalization, initially treated with hydroxyzine as benzos in the ICU cause acute hypercarbic respiratory failure. She was eventually resumed on her home dose of Ativan. paroxysmal atrial fibrillation-rate controlled continue Pradaxa for anticoagulation and metoprolol for rate control hypertension Continue Lopressor and amlodipine, dose of amlodipine was increased to 7.5 mg HFpEF euvolemic, not on diuretics at baseline s/p ORIF due to right femur fracture 05/31 PT eval- recommends short-term rehab Outpatient follow-up with ortho Elevated LFTs Trending down Time Attestation Discharge Coordination Time (in mins): 36 Quality: Safe Use of Opioids Does Pt have an Active Cancer Diagnosis on the Problem List?: No Quality: Stroke Does the patient have a stroke diagnosis?: No Physical Exam Vital Signs: Vital Signs: Last Vital Signs Temp 98.3 F 07/13/23 11:11 Pulse 79 07/13/23 11:11 Resp 20 07/13/23 11:11 BP 156/60 H 07/13/23 11:11 Pulse Ox 93 07/13/23 11:11 O2 Del Method Nasal Cannula 07/13/23 11:11 O2 Flow Rate 3 07/13/23 11:11 FiO2 35 07/06/23 11:57 Oxygen Flow Rate 4 07/03/23 10:22 BMI result Body Mass Index 17.7 Const: Other: Constitutional-awake, alert, in no acute distress, alert and oriented x3; thin, frail Cardiovascular-regular rate and rhythm Pulmonary bilateral expiratory wheezing, prolonged expiratory phase, no accessory muscle use GI abdomen soft, nontender, nondistended Musculoskeletal-able to move all 4 extremities. Bilateral heels in offloading boots Neuro-grossly nonfocal Discharge Plan Discharge Anticipated Discharge Date/Time: 07/13/23 12:28 Patient Disposition: Xfer SNF Discharge Diagnosis: UTI COPD exacerbation Acute respiratory failure aspiration pneumonia Referrals: Keny Callaway [place] [Outside] - 1 Week Jennifer Frost DO [Primary Care Provider] - 1 Week Discharge Medications: New prednisone 10 mg tablet See Taper PO DIRECTED Qty: 20 0RF Taper: Prednisone 40 mg daily for 2 Days and 0 Hour 30 mg daily for 2 Days and 0 Hour 20 mg daily for 2 Days and 0 Hour 10 mg daily for 2 Days and 0 Hour Rx Instructions: see taper instructions albuterol sulfate 2.5 mg /3 mL (0.083 %) Solution For Nebulization 2.5 mg inhalation Q4H PRN (Reason: wheezing) Qty: 75 0RF nicotine 21 mg/24 hr Patch 24 Hour 21 mg transdermal DAILY Qty: 7 0RF hydroxyzine HCl 25 mg Tablet 25 mg PO Q6H PRN (Reason: anxiety) Qty: 7 0RF Continued metoprolol tartrate 50 mg tablet 50 mg PO BID lorazepam 1 mg tablet 1 mg PO DAILY PRN (Reason: Anxiety) dabigatran etexilate 150 mg capsule 150 mg PO BID rosuvastatin 20 mg tablet 20 mg PO DAILY Changed amlodipine [Norvasc] 5 mg tablet 7.5 mg PO DAILY Qty: 30 0RF Discharge Orders: Discharge Order (Routine); Ordered 07/13/23 Ordered By: Danay Pemberton Diet: Advance to usual diet Activity on Discharge: As tolerated Stand Alone Forms: Patient Portal Discharge page Print Language: Malay Care Plan Goals: You will be sent home with oxygen. 2 liters at rest and 3 liters with ambulation. Do not smoke or use fire around the oxygen or its components. Health Concerns: UTI COPD exacerbation Acute respiratory failure aspiration pneumonia Plan of Treatment: Follow up with primary care provider as needed outpatient follow up with ortho for recent subcapital fracture of right femur status post ORIF at [facility] (in may) Continue prednisone taper as prescribed, to start 30 mg dose 07/13 Dose of Norvasc was increased to 7.5 mg daily Take all medications as prescribed Assessment: See discharge summary
--- NOTE | 2023-07-13 12:25 | MHC.CM.PN ---
Patient is medically cleared for dc to SNF/STR today. Patient will dc to [facility] today at 3PM, via [facility]. CM met with Patient at bedside and original IMM was given to Patient and a copy has been placed on the chart. CM left a detailed message for Friend/HCP/Yandy @ [phone], informing her of the dc plan.
--- NOTE | 2023-07-13 12:50 | MHC.SL.SWA ---
Risk of Aspiration Due to: Hx of Recent Extubation Dysphasia Diet Status: No change Liquid Consistency and Strategies for Safe Swallow: Liquid Intake Recommendation: Thin Liquid Intake Strategies: Small Sips Solid Food Consistency: Dietary Recommendations: Chopped/Advanced (NDD3) Oral Medication Intake: Whole/Crushed with Puree Please contact the pharmacy regarding appropriate crushable or liquid drug formulations that are available whenever modified delivery is recommended. Compensatory Strategies and Precautions to be Taken for Safe Swallow: Sitting Upright (90 deg) Small Bites and Sips Alternate Liquids/Solids Rate of Ingestion Change Supervision While Eating and Drinking for Safe Swallow: Intermittent Supervision Foods to Avoid: Hard, tough to chew solids Swallowing Recommended Treatments: Compens. Strategy Educat. Recommendation for Speech: Inpatient Speech Therapy Comment: Recommend pt continue with CHOPPED/ADVANCED solids and THIN liquids. Pt appears to be on safest and least restrictive diet at this time. Recommend SUPERINTENDENT [employer] f/u 1x to monitor toleration of diet and make changes as needed. Recommend G.I. consult d/t ?esophageal dysphagia symptoms: Patient attempting to expectorate food w/ belching and complaining of food coming back up to [her] throat. Technical Director Clinican/Clinical Fellow: No Supervisory Statement: I have reviewed and agree with the student/clinical fellow's documentation: N/A Speech Language Pathologist: María Gomez M.A., CCC-SUPERINTENDENT [employer]ODUCTION
== END 2023-07-13 15:26 | disposition skilled nursing facility (03) | DRG 208 ==
LOC: HO.ED 14:36 → HO.EDOVER 14:55 → HO.ICU 07-04 01:31 → HO.IMC 07-06 08:30 → HO.ICU 07-06 10:12 → HO.IMC 07-06 13:44
PROVIDERS: Internal Medicine Pulmonary Disease; Registered Nurse Community Health; Admitting Provider Physician Assistant; Emergency Provider Emergency Medicine; PCP Internal Medicine; Visit Provider Physician Assistant Medical
DX: J44.1 Chronic obstructive pulmonary disease with (acute) exacerbation (principal); J96.01 Acute respiratory failure with hypoxia; L89.153 Pressure ulcer of sacral region, stage 3; J96.02 Acute respiratory failure with hypercapnia; N39.0 Urinary tract infection, site not specified; I50.32 Chronic diastolic (congestive) heart failure; F05 Delirium due to known physiological condition; E44.0 Moderate protein-calorie malnutrition; Z68.1 Body mass index [BMI] 19.9 or less, adult; F41.9 Anxiety disorder, unspecified; B97.29 Other coronavirus as the cause of diseases classified elsewhere; F17.200 Nicotine dependence, unspecified, uncomplicated; Z71.6 Tobacco abuse counseling; J06.9 Acute upper respiratory infection, unspecified; B96.89 Other specified bacterial agents as the cause of diseases classified elsewhere; B97.89 Other viral agents as the cause of diseases classified elsewhere; I11.0 Hypertensive heart disease with heart failure; I48.0 Paroxysmal atrial fibrillation; I71.40 Abdominal aortic aneurysm, without rupture, unspecified; Z91.199 Patient's noncompliance with other medical treatment and regimen due to unspecified reason; Z20.822 Contact with and (suspected) exposure to COVID-19; Z79.01 Long term (current) use of anticoagulants; Z79.899 Other long term (current) drug therapy
CPT/HCPCS: 0241U; 36415; 36600; 71045; 71275; 80048; 80053; 80076; 81001; 81003; 82040; 82803; 83605; 83690; 83735; 83880; 84100; 84145; 84484; 85007; 85025; 85027; 85379; 87040; 87086; 87088; 87186; 87633; 92610; 93005; 93306; 94002; 94640; 94799; 97110; 97116; 97162; 97166; 97530; 97535; 99285; C9113; J0360; J0456; J0692; J0696; J1939; J1940; J1956; J2704; J2919; J3410; P9047; Q9967

== ENCOUNTER → 2023-07-03 10:20 | Outpatient (BNV) | payer OTHER, SELFPAY | PROVIDERS: Admitting Provider Physician Assistant; Emergency Provider Emergency Medicine; Visit Provider Internal Medicine | DX: I45.81 Long QT syndrome (principal) | CPT/HCPCS: 93010 ==

== ENCOUNTER 2023-07-03 14:37 | Outpatient (BNV) | payer MEDICARE, SELFPAY | END 2023-07-05 07:00 | PROVIDERS: Admitting Provider Physician Assistant; Emergency Provider Emergency Medicine; PCP Internal Medicine; Visit Provider Internal Medicine | DX: I35.2 Nonrheumatic aortic (valve) stenosis with insufficiency (principal); I35.8 Other nonrheumatic aortic valve disorders; I34.0 Nonrheumatic mitral (valve) insufficiency; I36.1 Nonrheumatic tricuspid (valve) insufficiency | CPT/HCPCS: 93306 ==

== ENCOUNTER 2023-07-03 14:37 | Outpatient (BNV) | payer MEDICARE, SELFPAY | END 2023-07-04 02:33 | PROVIDERS: Admitting Provider Physician Assistant; Emergency Provider Emergency Medicine; Visit Provider Internal Medicine | DX: R09.02 Hypoxemia (principal); R94.31 Abnormal electrocardiogram [ECG] [EKG] | CPT/HCPCS: 93010 ==

== ENCOUNTER → 2023-07-03 14:37 | Outpatient (BNV) | payer MEDICARE, SELFPAY | PROVIDERS: Admitting Provider Physician Assistant; Emergency Provider Emergency Medicine; PCP Internal Medicine; Visit Provider Internal Medicine Pulmonary Disease | DX: N39.0 Urinary tract infection, site not specified (principal); J44.9 Chronic obstructive pulmonary disease, unspecified; I48.91 Unspecified atrial fibrillation; J44.1 Chronic obstructive pulmonary disease with (acute) exacerbation | CPT/HCPCS: 99291 ==

== ENCOUNTER → 2023-07-03 14:37 | Outpatient (BNV) | payer OTHER, SELFPAY | PROVIDERS: Admitting Provider Physician Assistant; Emergency Provider Emergency Medicine; Visit Provider Physician Assistant | DX: J96.02 Acute respiratory failure with hypercapnia (principal) | CPT/HCPCS: 99223; 99232; 99239; 99499 ==

== ENCOUNTER → 2023-07-03 14:37 | Outpatient (BNV) | payer MEDICARE, SELFPAY | PROVIDERS: Admitting Provider Physician Assistant; Emergency Provider Emergency Medicine; Visit Provider Registered Nurse Community Health | DX: J44.1 Chronic obstructive pulmonary disease with (acute) exacerbation (principal); J96.01 Acute respiratory failure with hypoxia; J96.02 Acute respiratory failure with hypercapnia | CPT/HCPCS: 31500; 99291; 99499 ==